=== PATIENT | female | born 1940 | race Caucasian/White ===

== ENCOUNTER → 2016-03-25 | Day surgery (SDC) | payer MEDICARE, BC ==
[~2016-03-25] MED LIST: ALPRAZolam 0.25 MG TAB ONE; BACITRACIN OINT 1 EACH PACKET TOPICAL ONE; LIDOCAINE 1% INJ 10MG/ML (20 ML MDV) ONE; SODIUM BICARB 4% 5 ML VIAL (0.48 MEQ/ML) ONE
--- NOTE | 2016-03-25 08:49 | PCN ---
DATE OF PROCEDURE: The patient is a 75-year-old white female with an abnormal mammogram of the left breast. She presents for left breast stereotactic core biopsy. The area of concern in the left breast was localized. Needle was driven to the correct coordinates. Multiple core biopsies were obtained. The specimen was radiographed and area of concern was sampled. The patient then had a clip left behind. Patient tolerated the procedure in stable condition. The specimen was sent for pathology.
--- NOTE | 2016-03-25 15:21 | MM ---
EXAMINATION TYPE: MG stereo VAD BX LT DATE OF EXAM: 03/25/2016 9:10 AM COMPARISON: Outside mammogram from [facility] 02/12/2016 CLINICAL HISTORY: 75-year-old female abnormal mammogram, referred for biopsy of left breast microcalcifications. TECHNIQUE: Stereotactic guided core biopsy of the left breast. FINDINGS: The procedure of stereotactic guided core biopsy was explained to the patient. Benefits, alternatives, and risks were discussed. An informed consent was then obtained. The shortness pathway for biopsy was chosen. [facility] pathway was an inferior approach. I performed the localization, then surgeon, Dr. Guero Ho performed the remainder of the procedure. An 8 gauge vacuum assisted biopsy gun was used to obtain multiple core samples. The patient tolerated the procedure well without any immediate complication. The patient was kept in the radiology department for short stay after the procedure and then discharged home in stable condition. Targeted calcifications are identified in specimen mammogram. Post biopsy mammogram shows the clip to appear in satisfactory position relative to the targeted area of concern on the preprocedure images. IMPRESSION: SUCCESSFUL, UNCOMPLICATED STEREOTACTIC GUIDED CORE BIOPSY OF 6:00 LEFT BREAST MICROCALCIFICATIONS; FULL PATHOLOGY RESULTS TO FOLLOW. 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 Recommendation Surgical consult of the left breast. TANVI
== END ==
LOC: RADMAMWWP 06:53
PROVIDERS: ATTEND Surgery
DX: C50.912 Malignant neoplasm of unspecified site of left female breast (principal); R92.8 Other abnormal and inconclusive findings on diagnostic imaging of breast
CPT/HCPCS: 88305; 88342; 88341; 19081; A4648; J2001

== ENCOUNTER 2016-04-20 10:22 | Day surgery (SDC) | payer MEDICARE, BC ==
[2016-04-15 11:26] VITALS: BMI 27.4
[~2016-04-20 10:22] MED LIST changes: -ALPRAZolam 0.25 MG TAB ONE; -BACITRACIN OINT 1 EACH PACKET TOPICAL ONE; +DEXAMETHASONE SOD PHOSPHATE 10 MG/ML 1 ML VIAL IV ONE; +HEPARIN SODIUM,PORCINE 5,000 UNIT/ML 1 ML VIAL SQ ONE; +HYDROmorphone 1 MG/ML 1 ML SYRINGE IVP PRN; +LACTATED RINGERS 1,000 ML IV SCH; +LIDOCAINE 1% 20 ML VIAL (10MG/ML) FOR IV START INTRADERMA PRN; -LIDOCAINE 1% INJ 10MG/ML (20 ML MDV) ONE; +MIDAZOLAM 2 MG/2 ML VIAL IV PRN; +ONDANSETRON 4 MG/2 ML VIAL IVP ONE; +SCOPOLAMINE 1.5MG/72HR PATCH TRANSDERM ONE; -SODIUM BICARB 4% 5 ML VIAL (0.48 MEQ/ML) ONE; +ceFAZolin 2 GM in SODIUM CHLORIDE 0.9% 100 ML IVPB ONE
[2016-04-20] MEDS ORDERED: ALPRAZolam 0.25 MG TAB PO ONE (10:41)
[2016-04-20] MEDS ORDERED: LACTATED RINGERS 1,000 ML IV ONE ×5 (10:42→15:38)
[2016-04-20] MEDS ORDERED: LIDOCAINE 1% 20 ML VIAL (10MG/ML) FOR IV START INTRADERMA ONE (10:42)
[2016-04-20] MEDS ORDERED: LIDOCAINE 1% INJ 10MG/ML (20 ML MDV) SQ ONE (11:48)
[2016-04-20] MEDS ORDERED: SODIUM BICARB 4% 5 ML VIAL (0.48 MEQ/ML) MISCELLANE ONE (11:48)
[2016-04-20] MEDS ORDERED: HEPARIN SODIUM,PORCINE 5,000 UNIT/ML 1 ML VIAL SQ ONE (12:45)
[2016-04-20] MEDS ORDERED: METHYLENE BLUE 10 MG/ML 1 ML VIAL MISCELLANE ONE (13:15)
[2016-04-20] MEDS ORDERED: PROPOFOL 10 MG/ML 20 ML VIAL IV ONE (13:32)
[2016-04-20] MEDS ORDERED: fentaNYL (PF) 50 MCG/ML 2 ML AMP ONE (13:32)
[2016-04-20] MEDS ORDERED: HYDROmorphone (PF) 1 MG/ML ONE (13:32)
[2016-04-20] MEDS ORDERED: MIDAZOLAM 2 MG/2 ML VIAL ONE (13:32)
[2016-04-20] MEDS ORDERED: ROCURONIUM BROMIDE 10 MG/ML 10 ML VIAL IV ONE (13:32)
[2016-04-20] MEDS ORDERED: ePHEDrine 50 MG/ML 1 ML AMP ONE (13:32)
[2016-04-20] MEDS ORDERED: LIDOCAINE 1% INJ 10MG/ML (20 ML MDV) ONE (13:32)
--- NOTE | 2016-04-20 14:00 | NM ---
EXAMINATION TYPE: NM sentinel node injection DATE OF EXAM: 04/20/2016 12:24 PM COMPARISON: NONE HISTORY: Left-sided breast cancer TECHNIQUE AND FINDINGS: The procedure of sentinel lymph node injection was explained to the patient. The benefits, alternatives, and risks were discussed. An informed consent was then obtained. Overlying skin is cleaned with sterile alcohol. Lidocaine buffered with bicarbonate was used as anes thetic into the skin and subcutaneous tissue surrounding the nipple. Following this, 504 uCi Tc 99m Filtered Sulfur Colloid was injected into 4 equivalent doses at 12, 3, 6, and 9:00 position surroundi ng the left nipple intradermally. The injection sites were massaged by nuclear physician for 10 minutes after injection. T he patient tolerated the procedure well without any immediate complication. The patient was kept in the radiology department for short stay after the procedure and then taken to surgery for surgical pr ocedure what is presumed intraoperative gamma probe will be used for sentinel lymph node detection. IMPRESSION: Left breast radiotracer injection for sentinel node localization as above.
[2016-04-20] MEDS ORDERED: METHYLENE BLUE 10 MG/ML 1 ML VIAL INJ ONE (14:05)
--- NOTE | 2016-04-20 14:36 | MM ---
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 TECHNIQUE: Needle localization with wire placement and surgical excision of area of concern in the left breast. FINDINGS: The procedure of needle localization with wire placement and than surgical excision was explained to the patient. Benefits, alternatives, and risks were discussed. An informed consent was then obtained. The shortest pathway for procedure was chosen. Shortest pathway was inferior approach. The overlying skin was prepped and draped in usual sterile fashion. Lidocaine buffered with bicarbonate was used as anesthetic into the skin and subcutaneous tissue up to the level of area of concern. A 5 cm needle was used. It was placed via a inferior approach under mammographic guidance. Subsequent 90 degrees mammogram show the needle to be in satisfactory position relative to the targeted area. At this point, wire was placed and the needle was withdrawn. The wire was fixed to patient's skin. Images were marked for surgeon. The patient tolerated the procedure well without any immediate complication. The patient was kept in the radiology department for short stay after the procedure and then taken to surgery for surgical excision. Targeted biopsy clip and wire are identified in specimen mammogram. The patient was kept in hospital for short stay after the procedure and then discharged home in stable condition. IMPRESSION: Successful, uncomplicated needle localization with wire placement and surgical excision of targeted biopsy clip in the left breast, full pathology results to follow. Pathology Results: Malignant A. PALPABLE LYMPH NODE IN AXILLA: LYMPH NODE WITH EXTENSIVE FAT REPLACEMENT, NEGATIVE FOR METASTATIC MALIGNANCY. CK7 AND TAMI IMMUNOPEROXIDASE STAINS ARE CONFIRMATORY (CONTROLS APPROPRIATE). B. SENTINEL LYMPH ODE #1, BIOPSY: LYMPH NODE WITH PARTIAL FAT REPLACEMENT, NEGATIVE FOR METASTATIC MALIGNANCY. CK7 AND TAMI IMMUNOPEROXIDASE STAINS ARE CONFIRMATORY (CONTROLS APPROPRIATE). C. SENTINEL LYMPH NODE #2, BIOPSY: LYMPH NODE WITH EXTENSIVE FAT REPLACEMENT, NEGATIVE FOR METASTATIC MALIGNANCY. CK7 AND TAMI IMMUNOPEROXIDASE STAINS ARE CONFIRMATORY (CONTROLS APPROPRIATE). D. BREAST, LEFT, LUMPECTOMY: MULTIFOCAL INVASIVE DUCTAL CARCINOMA WITH LOBULAR TYPE GROWTH PATTERN AND DUCTAL CARCINOMA IN SITU (DCIS), MARGINS NEGATIVE FOR MALIGNANCY. SEE SURGICAL PATHOLOGY CANCER CASE SUMMARY. E. BREAST, LEFT, NEW POSTERIOR MARGIN, EXCISION: BENIGN BREAST WITH FIBROCYSTIC CHANGES. F. BREAST, LEFT, NEW ANTERIOR MARGIN, EXCISION: BENIGN SKIN AND SUBCUTANEOUS TISSUE. G. LEFT AXILLARY CONTENTS: THREE LYMPH NODES WITH PARTIAL FAT REPLACEMENT, NEGATIVE FOR METASTATIC MALIGNANCY. CK7 AND TAMI IMMUNOPEROXIDASE STAINS ARE CONFIRMATORY (CONTROLS APPROPRIATE). Recommendation Surgical consult of the left breast. MTDD
--- NOTE | 2016-04-20 15:38 | P.OP ---
Date of Procedure: 04/20/16 Preoperative Diagnosis: Left breast cancer Postoperative Diagnosis: Left breast cancer Procedure(s) Performed: Lymphatic mapping with methylene blue, lumpectomy, sentinal node biopsy Anesthesia: CLARENCEA Surgeon: Breonna Villavicencio Estimated Blood Loss (ml): 10 IV fluids (ml): 1,400 Pathology: other (Lumpectomy, sentinel node biopsy) Condition: stable Disposition: PACU Indications for Procedure: Left breast cancer Operative Findings: Left breast dense tissue, palpable adenopathy left axilla with 2 sentinel nodes Description of Procedure: Patient was taken to the operating room and following induction of general anesthesia the left breast was prepped using alcohol swab. Approximately 4 mL of quarter strength methylene blue was injected. The breast was then massaged. The left breast and axilla were then prepped and draped in a sterile fashion. An incision was made to the hook of the needle localization needle in the left breast. This was carried down to the area of question. Wide excision lumpectomy was performed. Palpable firmness was noted and there was fatty tissue in all planes over this area palpable firmness. The dissection was actually carried to the pectoralis muscle posteriorly, and the skin was excised anteriorly, the specimen was painted for orientation. The specimen was sent to radiology for confirmation that the area of concern had been removed, this was obtained. After we were assured that hemostasis was obtained oncoplastic tissue rearrangement was performed to allow closure of the tissue over the Biozorb implantable device. The tissues were closed using 3-0 Vicryl around the BioSorb. The skin was then closed using 4-0 Monocryl. The area of the axilla was approached. All gloves and instruments and gowns were changed. The neoprobe was used to try to identify the area of greatest concern in the axilla. This did not reveal any radioactivity externally and an axillary skin incision was made. This was carried down into the area of the axilla where two radioactive blue lymph nodes were identified as well as the palpable lymph node. The radioactive lymph nodes were removed and the 10 second count on one was approximately 154 and the second was 290. The background axillary radioactive count at 10 seconds after removal of the nodes was 5. The lymph nodes were sent for frozen section evaluation and were negative for cancer. After we were assured that hemostasis was attained a Justin-Jaimes drain was placed. The deep tissues were closed using 3-0 Vicryl. The skin was closed using 4-0 Monocryl. All instrument and sponge counts were correct at the end of the case. The patient tolerated procedure in stable condition.
--- NOTE | 2016-04-20 15:40 | P.DS ---
Providers Attending physician: Breonna Villavicencio Primary care physician: Jerome Berrios Plan - Discharge Summary New Discharge Prescriptions: HYDROcodone/APAP 5-325MG [[place] 5] 1 - 2 each PO Q4H PRN #20 tab PRN Reason: Pain Discharge Medication List Aspirin [Adult Low Dose Aspirin EC] 81 mg PO DAILY 04/15/16 [History] Cholecalciferol [Vitamin D3] 2,000 unit PO DAILY 04/15/16 [History] Multivitamins, Thera [Multivitamin] 1 tab PO DAILY 04/15/16 [History] Omeprazole 20 mg PO HS 04/15/16 [History] PARoxetine [Paxil] 10 mg PO DAILY 04/15/16 [History] HYDROcodone/APAP 5-325MG [[place] 5] 1 - 2 each PO Q4H PRN #20 tab 04/20/16 [Rx] Follow up Appointment(s)/Referral(s): Breonna Villavicencio MD [STAFF PHYSICIAN] - 1 Week Activity/Diet/Wound Care/Special Instructions: wear bra at all times Do not drive until seen by Dr. Jack Teach drain care Discharge Disposition: HOME SELF-CARE
[2016-04-20 15:52] VITALS: TEMP 07
[2016-04-20 16:42] VITALS: RESP 18
[2016-04-20 18:09] VITALS: BP 147/93; PULSE 81
--- NOTE | 2016-04-23 19:47 | PCN ---
DATE OF PROCEDURE: 04/20/2016 ADDENDUM: Clarification: PROCEDURE: This was a lumpectomy with an onchoplasty tissue transfer and bioabsorb of implantable device placement. It should be known that the cavity itself was approximately 5 cm x 8 cm in size. The tissue transfer was sufficient to fill this cavity. The square centimeters were approximately 40 sq cm.
== END 2016-04-20 18:45 | disposition home or self-care (01) ==
LOC: OR 10:22
PROVIDERS: ATTEND Surgery
DX: C50.912 Malignant neoplasm of unspecified site of left female breast (principal); N60.12 Diffuse cystic mastopathy of left breast; R59.0 Localized enlarged lymph nodes; K21.9 Gastro-esophageal reflux disease without esophagitis; F32.9 Major depressive disorder, single episode, unspecified; F41.0 Panic disorder [episodic paroxysmal anxiety]; Z80.3 Family history of malignant neoplasm of breast; Z80.0 Family history of malignant neoplasm of digestive organs; Z79.82 Long term (current) use of aspirin; Z79.899 Other long term (current) drug therapy; F17.200 Nicotine dependence, unspecified, uncomplicated
CPT/HCPCS: 19125; 38525; 88305; 88342; 88331; 88307; 88341; 76098; 19281; 38792; C1713; A9541; J2250; J1644; J1100; J0690; J2405; J2001; Q9968; J3010; J1170; J2704; 88332

== ENCOUNTER → 2016-07-30 | Outpatient (CLI) | payer MEDICARE, BC ==
--- NOTE | 2016-07-30 13:31 | MM ---
Reason for exam: clinical finding. History: Patient has history of breast cancer at age 75. Family history of breast cancer in sister at age 80. Malignant MG pre op needle loc LT of the left breast, April 20, 2016. Malignant MG stereo VAD BX LT of the left breast, March 25, 2016. Physical Findings: Nurse Summary: 1cm nodule in the left breast at 2 o'clock (nurse kp). MG 3D Diag Mammo W/Cad LT CC and MLO view(s) were taken of the left breast. There is no discrete abnormality at BB. Post surgical changes in the left breast. Ultrasound of left palpable recommended. No significant new findings when compared with previous films. These results were verbally communicated with the patient and result sheet given to the patient on 07/30/16. ASSESSMENT: Benign, BI-RAD 2 RECOMMENDATION: Follow-up diagnostic mammogram of both breasts in 6 months.
--- NOTE | 2016-07-30 13:33 | USB ---
Reason for exam: clinical finding. History: Patient has history of breast cancer at age 75. Family history of breast cancer in sister at age 80. Malignant MG pre op needle loc LT of the left breast, April 20, 2016. Malignant MG stereo VAD BX LT of the left breast, March 25, 2016. US Breast Limited LT Left breast ultrasound demonstrates a 0.9 x 0.6 x 0.5cm oval node at 2 o'clock, correlates at palpable abnormality. These results were verbally communicated with the patient and result sheet given to the patient on 07/30/16. ASSESSMENT: Probably benign, BI-RAD 3 RECOMMENDATION: Follow-up diagnostic mammogram of both breasts in 6 months.
== END | disposition home or self-care (01) ==
LOC: RADMAMWWP 11:47
PROVIDERS: ATTEND Surgery
DX: Z85.3 Personal history of malignant neoplasm of breast (principal); R92.8 Other abnormal and inconclusive findings on diagnostic imaging of breast
CPT/HCPCS: 76642; G0206; G0279

== ENCOUNTER → 2016-10-18 | Outpatient (CLI) | payer MEDICARE, BC ==
--- NOTE | 2016-10-18 12:26 | BD ---
EXAMINATION TYPE: MG DEXA axial skeleton. DATE OF EXAM: 10/18/2016 COMPARISON: NONE CLINICAL HISTORY: Height: 63 IN Weight: 161 LBS FRAX RISK QUESTIONS: Alcohol (3 or more units per day): NO Family History (Parent hip fracture): NO Glucocorticoids (More than 3mos): NO (Ex: prednisone, prednisolone, methylprednisolone, dexamethasone, and hydrocortisone). History of Fracture in Adulthood: YES LEFT ANKLE AGE 55 Secondary Osteoporosis: 1. Type 1 Diabetes: NO 2. Hyperthyroidism: NO 3. Menopause before 45: NO 4. Malnutrition: NO 5. Chronic liver disease: NO Rheumatoid Arthritis: NO Current Tobacco Use: YES RISK FACTORS HISTORY OF: Active: YES Postmenopausal woman: AGE 53 Take estrogen and/or progesterone medications: NOT NOW How long: PT TOOK HORMONES FROM AGE 14- 15 HER FEMALE ORGANS WERE UNDERDEVELOPED MEDICATIONS: Additional Medications: VIT D, ASPIRIN 81, CENTRUM SILVER, FEMARA,OMEPRAZOLE, PAROXEINE, VIT D3 Additional History: BREAST CANCER WITH RADIATION EXAM MEASUREMENTS: Bone mineral densitometry was performed using the [employer] System. Bone mineral density as measured about the Lumbar spine is: ----- L1-L4(G/cm2): 0.931 T Score Values are as follows: ----- L2: -1.9 ----- L3: -1.9 ----- L4: -2.7 ----- L1-L4: -2.1 Bone mineral density BASELINE Bone mineral density about the R hip (g/cm2): 0.762 Bone mineral density about the L hip (g/cm2): 0.654 T Score values are as follows: -----R Neck: -2.0 -----L Neck: -2.8 -----R Total: -1.0 -----L Total: -1.5 Bone mineral densityBASELINE IMPRESSION: Findings compatible with severe osteopenia with localized osteoporosis involving the left femoral nec k and L4 vertebral body. NOTE: T-SCORE=SD OF THE YOUNG ADULT MEAN.
== END | disposition home or self-care (01) ==
LOC: RADBDWWP 10:08
PROVIDERS: ATTEND Internal Medicine Hematology & Oncology
DX: C50.112 Malignant neoplasm of central portion of left female breast (principal); N95.1 Menopausal and female climacteric states; Z79.890 Hormone replacement therapy
CPT/HCPCS: 77080

== ENCOUNTER → 2017-02-01 | Outpatient (CLI) | payer MEDICARE, BC ==
--- NOTE | 2017-02-02 07:09 | MM ---
Reason for exam: follow-up at short interval from prior study. Last mammogram was performed 6 months ago. History: Patient is postmenopausal and has history of breast cancer at age 75. Malignant MG pre op needle loc LT of the left breast, April 20, 2016. Malignant MG stereo VAD BX LT of the left breast, March 25, 2016. Took antineoplastic beginning at age 75. Physical Findings: Nurse did not find any significant physical abnormalities on exam. MG 3D Diag Mammo W/Cad MARY XCCL view(s) were taken of the left breast. Prior study comparison: July 30, 2016, left breast MG 3d diag mammo w/cad LT. July 30, 2016, left breast US breast limited LT. The breast tissue is heterogeneously dense. This may lower the sensitivity of mammography. Post therapy changes on the left breast. No significant new findings when compared with previous films. These results were verbally communicated with the patient and result sheet given to the patient on 02/01/17. ASSESSMENT: Benign, BI-RAD 2 RECOMMENDATION: Follow-up diagnostic mammogram of both breasts in 1 year.
== END | disposition home or self-care (01) ==
LOC: RADMAMWWP 10:45
PROVIDERS: ATTEND Surgery
DX: R92.8 Other abnormal and inconclusive findings on diagnostic imaging of breast (principal)
CPT/HCPCS: G0204; G0279

== ENCOUNTER → 2017-10-19 | Outpatient (CLI) | payer MEDICARE, BC ==
--- NOTE | 2017-10-19 17:36 | BD ---
EXAMINATION TYPE: Axial Bone Density DATE OF EXAM: 10/19/2017 COMPARISON: 2017 CLINICAL HISTORY: 77-year-old female postmenopausal screening, history of breast cancer 2018 Height: 5'3 Weight: 160 FRAX RISK QUESTIONS: History of Fracture in Adulthood: Y Secondary Osteoporosis: Current Tobacco Use: y RISK FACTORS HISTORY OF: Postmenopausal woman: MEDICATIONS: Additional Medications: anxiety, acid reflux , cholesterol Additional History: 2018 breast cancer EXAM MEASUREMENTS: Bone mineral densitometry was performed using the [employer] System. Bone mineral density as measured about the Lumbar spine is: ----- L1-L4(G/cm2): 0.915 T Score Values are as follows: ----- L2: -2.0 ----- L3: -2.1 ----- L4: -2.6 ----- L1-L4: -2.3 Bone mineral density has: Decreased -1.2% since study of: 10/18/2016 Bone mineral density about the R hip (g/cm2): 0.725 Bone mineral density about the L hip (g/cm2): 0.624 T Score values are as follows: -----R Neck: -2.3 -----L Neck: -3.0 -----R Total: -1.1 -----L Total: -1.7 Bone mineral density has: Decreased -2.3% since study of: 10/18/2016 IMPRESSION: Osteoporosis (T Score less than -2.5). There is increased fracture risk and therapy is usually indicated based on age. Re-Screen 1-2 years. NOTE: T-SCORE=SD OF THE YOUNG ADULT MEAN.
== END | disposition home or self-care (01) ==
LOC: RADBDWWP 13:11
PROVIDERS: ATTEND Internal Medicine Hematology & Oncology
DX: C50.812 Malignant neoplasm of overlapping sites of left female breast (principal); M81.0 Age-related osteoporosis without current pathological fracture
CPT/HCPCS: 77080

== ENCOUNTER → 2017-11-23 | Outpatient (CLI) | payer MEDICARE ==
--- NOTE | 2017-11-23 14:04 | MR ---
EXAMINATION TYPE: MR iac wo/w con DATE OF EXAM: 11/23/2017 COMPARISON: None HISTORY: Hearing loss TECHNIQUE: Multiplanar, multisequence images of the brain and brainstem, small disla-[id number] high-resolution giorgi ges through the internal auditory canals is performed without and with IV contrast, utilizing 8 mL in travenous Gadavist . FINDINGS: Diffusion weighted images demonstrate no evidence of a recent infarct or other diffusion ab normality. There is no extra-axial fluid collection. Increased signal noted within the eugenie as well as periventricular white matter and confluent and scattered foci on inversion recovery and T2-weighte d sequences. The ventricular system and cisternal spaces are normal in size and appearance. The brai n volume is age appropriate, there is likely age-related atrophy. Midline structures demonstrate normal morphology, partially empty sella noted. The craniocervical ju nction appears within normal limits. Post contrast images demonstrate no abnormal enhancement. The d ural venous sinuses appear patent. The visualized sinuses are remarkable for minimal inflammatory francisco nge left maxillary sinus and the globes are intact. Basilar tip appears somewhat prominently however this may be normal variant. Cerebellopontine angles and specific are normal. Semicircular canals show symmetric appearance. No internal auditory canal mass. IMPRESSION: Age-related atrophy and probable chronic small vessel ischemia. Prominence of the basilar tip may be normal variant, follow-up MRA could be performed to assess for stability. No internal aud itory canal mass.
== END | disposition home or self-care (01) ==
LOC: RADMRIMAIN 10:46
PROVIDERS: ATTEND Otolaryngology
DX: G31.1 Senile degeneration of brain, not elsewhere classified (principal)
CPT/HCPCS: 82565; 70553; 36415; A9581

== ENCOUNTER → 2018-02-03 | Outpatient (CLI) | payer MEDICARE, BC ==
--- NOTE | 2018-02-06 09:12 | MM ---
Reason for exam: additional evaluation requested from prior study. Last mammogram was performed 1 year ago. History: Patient is postmenopausal and has history of breast cancer at age 75. Family history of breast cancer in sister at age 80. Malignant MG pre op needle loc LT of the left breast, April 20, 2016. Malignant MG stereo VAD BX LT of the left breast, March 25, 2016. Lumpectomy of the left breast, 2017. Radiation therapy of the left breast, 2017. Took antineoplastic for 1 year beginning at age 75. Physical Findings: Nurse did not find any significant physical abnormalities on exam. MG 3D Diag Mammo W/Cad MARY Bilateral CC and MLO view(s) were taken. Prior study comparison: February 01, 2017, bilateral MG 3d diag mammo w/cad MARY. July 30, 2016, left breast MG 3d diag mammo w/cad LT. The breast tissue is heterogeneously dense. This may lower the sensitivity of mammography. Asymmetric breast tissue greater in the left breast. Post surgical changes left breast. No significant new findings when compared with previous films. These results were verbally communicated with the patient and result sheet given to the patient on 02/03/18. ASSESSMENT: Benign, BI-RAD 2 RECOMMENDATION: Follow-up diagnostic mammogram of both breasts in 1 year.
== END | disposition home or self-care (01) ==
LOC: RADMAMWWP 09:39
PROVIDERS: ATTEND Internal Medicine Hematology & Oncology
DX: Z08 Encounter for follow-up examination after completed treatment for malignant neoplasm (principal); Z85.3 Personal history of malignant neoplasm of breast
CPT/HCPCS: 77066; G0279; 77062

== ENCOUNTER 2024-03-18 20:01 | Inpatient (IN) | payer MEDICARE ==
--- NOTE | 2024-03-18 20:11 | ED ---
Recheck HPI - General Chief Complaint: Back Pain/Injury Stated Complaint: Back pain Time Seen by Provider: 03/18/24 20:10 Source: EMS, RN notes reviewed, old records reviewed Mode of arrival: EMS Limitations: no limitations - History of Present Illness Initial Comments: This is a 83-year-old female excepted in transfer for compression fractures of the lumbar spine she follows with Dr. Howard orthopedics here at this hospital. Patient will be admitted for pain control and pain management MD Complaint: medication refill request Returns Today for: persistent/worsening pain related to initial visit Treatments Prior to Arrival: Given Pain Meds on - Related Data Home Medications Medication Instructions Recorded Confirmed Omeprazole 40 mg PO DAILY 04/15/16 03/19/24 HYDROcodone/APAP 5-325MG [[place] 1 tab PO Q6HR PRN 03/19/24 03/19/24 5-325] Losartan [Cozaar] 50 mg PO DAILY 03/19/24 03/19/24 PARoxetine [Paxil] 20 mg PO DAILY 03/19/24 03/19/24 Pregabalin [Lyrica] 100 mg PO TID 03/19/24 03/19/24 methocarbamoL [Robaxin-750] 750 mg PO TID PRN 03/19/24 03/19/24 Allergies Allergy/AdvReac Type Severity Reaction Status Date / Time No Known Allergies Allergy Verified 03/19/24 10:29 Review of Systems ROS Statement: Those systems with pertinent positive or pertinent negative responses have been documented in the HPI. ROS Other: All systems not noted in ROS Statement are negative. Past Medical History Past Medical History: Cancer, GERD/Reflux Additional Past Medical History / Comment(s): diverticulitis, left breast cancer History of Any Multi-Drug Resistant Organisms: None Reported Past Surgical History: Appendectomy, Breast Surgery, Orthopedic Surgery, Tonsillectomy Additional Past Surgical History / Comment(s): left breast biopsy, left shoulder rotator cuff Past Anesthesia/Blood Transfusion Reactions: No Reported Reaction Past Psychological History: Anxiety Past Alcohol Use History: Occasional Past Drug Use History: None Reported - Past Family History Sister(s) Family Medical History: Cancer Brother(s) Family Medical History: Cancer General Exam Limitations: no limitations General appearance: alert, in no apparent distress Head exam: Present: atraumatic, normocephalic, normal inspection Eye exam: Present: normal appearance, PERRL, EOMI. Absent: scleral icterus, conjunctival injection, periorbital swelling ENT exam: Present: normal exam, mucous membranes moist Neck exam: Present: normal inspection. Absent: tenderness, meningismus, lymphadenopathy Respiratory exam: Present: normal lung sounds bilaterally. Absent: respiratory distress, wheezes, rales, rhonchi, stridor Cardiovascular Exam: Present: regular rate, normal rhythm, normal heart sounds. Absent: systolic murmur, diastolic murmur, rubs, gallop, clicks GI/Abdominal exam: Present: soft, normal bowel sounds. Absent: distended, tenderness, guarding, rebound, rigid Extremities exam: Present: normal inspection, full ROM, normal capillary refill. Absent: tenderness, pedal edema, joint swelling, calf tenderness Back exam: Present: normal inspection Neurological exam: Present: alert, oriented X3, CN II-XII intact Psychiatric exam: Present: normal affect, normal mood Skin exam: Present: warm, dry, intact, normal color. Absent: rash Course Vital Signs 03/18/24 03/18/24 03/19/24 20:04 21:08 00:00 Temperature 98.1 F 97.6 F Pulse Rate 79 81 78 Respiratory 16 16 Rate Blood Pressure 194/94 175/91 O2 Sat by Pulse 92 L 96 93 L Oximetry 03/19/24 03/19/24 03/19/24 03:59 04:00 04:18 Temperature 97.6 F Pulse Rate 80 79 75 Respiratory 22 22 22 Rate Blood Pressure 156/92 187/106 182/101 O2 Sat by Pulse 99 98 98 Oximetry 03/19/24 03/19/24 03/19/24 04:30 05:04 05:21 Temperature Pulse Rate 75 74 83 Respiratory 22 20 18 Rate Blood Pressure 187/100 177/113 186/81 O2 Sat by Pulse 98 97 97 Oximetry 03/19/24 03/19/24 03/19/24 05:41 09:13 13:31 Temperature Pulse Rate 80 85 84 Respiratory 16 18 16 Rate Blood Pressure 157/89 169/99 158/91 O2 Sat by Pulse 97 96 92 L Oximetry 03/19/24 18:11 Temperature 97.4 F L Pulse Rate 85 Respiratory 18 Rate Blood Pressure 159/89 O2 Sat by Pulse 94 L Oximetry - Reevaluation(s) Reevaluation #1: 03/18/24 20:15 Medical records reviewed Reevaluation #2: 03/18/24 20:15 Patient pain is improved here in the ER Reevaluation #3: 03/18/24 20:15 Patient informed of results questions answered Reevaluation #4: Was pt. sent in by a medical professional or institution (MELY Gurrola, BENCH REPAIR TECHNICIAN, urgent care, hospital, or half-way...) When possible be specific @ -no Did you speak to anyone other than the patient for history (EMS, parent, family, police, friend...)? What history was obtained from this source @ -no Did you review nursing and triage notes (agree or disagree)? Why? @ -agree Are old charts reviewed (outside hosp., previous admission, EMS record, old EKG, old radiological studies, urgent care reports/EKG's, half-way records)? Report findings @ -yes Differential Diagnosis (chest pain, altered mental status, abdominal pain women, abdominal pain men, vaginal bleeding, weakness, fever, dyspnea, syncope, headache, dizziness, GI bleed, back pain, seizure, CVA, palpatations, mental health, musculoskeletal)? @ -prior EKG interpreted by me (3pts min.). @ -no X-rays interpreted by me (1pt min.). @ -no CT interpreted by me (1pt min.). @ -no U/S interpreted by me (1pt. min.). @ -no What testing was considered but not performed or refused? (CT, X-rays, U/S, labs)? Why? @ -none What meds were considered but not given or refused? Why? @ -none Did you discuss the management of the patient with other professionals (professionals i.e. MELY Gurrola, BENCH REPAIR TECHNICIAN, lab, RT, psych nurse, director social welfare, moving picture producer, teacher, chief sales officer, watch case polisher)? Give summary @ -no Was smoking cessation discussed for >3mins.? @ -no Was critical care preformed (if so, how long)? @ -no Were there social determinants of health that impacted care today? How? (Homelessness, low income, unemployed, alcoholism, drug addiction, transportation, low edu. Level, literacy, decrease access to med. care, halfway, rehab)? @ -none Was there de-escalation of care discussed even if they declined (Discuss DNR or withdrawal of care, Hospice)? DNR status @ -no What co-morbidities impacted this encounter? (DM, HTN, Smoking, COPD, CAD, Cancer, CVA, ARF, Chemo, Hep., AIDS, mental health diagnosis, sleep apnea, morbid obesity)? @ -none Was patient admitted / discharged? Hospital course, mention meds given and route, prescriptions, significant lab abnormalities, going to OR and other pertinent info. @ - 83 female to ER for fall fall with positive back fracture. Patient be admitted for pain control secondary to fracture Admitted Undiagnosed new problem with uncertain prognosis? @ -no Drug Therapy requiring intensive monitoring for toxicity (Heparin, Nitro, Insulin, Cardizem)? @ -no Were any procedures done? @ -no Diagnosis/symptom? @ -Pain control for back fracture fall Acute, or Chronic, or Acute on Chronic? @ -Acute Uncomplicated (without systemic symptoms) or Complicated (systemic symptoms)? @ -Complicated Side effects of treatment? @ -no Exacerbation, Progression, or Severe Exacerbation? @ -exacerbation Poses a threat to life or bodily function? How? (Chest pain, [place], VA, pneumonia, PE, COPD, DKA, ARF, appy, cholecystitis, CVA, Diverticulitis, Homicidal, Suicidal, threat to staff... and all critical care pts) @ -yes extremes of age Reevaluation #5: Differential Back Pain: Strain, zoster, cauda equina syndrome, epidural abscess, vertebral osteomyelitis, discitis, fracture, subluxation, disc herniation, DJD, spinal stenosis, dissection, AAA, pancreatitis, peptic ulcer disease, pyelonephritis, kidney stone, this is not meant to be an all-inclusive list. - Consultations Consultation #1: Spoke with анна who agrees to admit this patient Medical Decision Making - Medical Decision Making 83 female to ER for fall fall with positive back fracture. Patient be admitted for pain control secondary to fracture - Lab Data Result diagrams: 03/22/24 05:37 03/22/24 05:37 Lab Results 03/19/24 03/19/24 03/19/24 Range/Units 06:43 09:38 09:38 WBC 7.00 (4.50-10.00) X 10*3/uL RBC 3.66 L (4.10-5.20) X 10*6/uL Hgb 11.8 L (12.0-15.0) g/dL Hct 36.5 L (37.2-46.3) % MCV 99.7 H (80.0-97.0) FL MCH 32.2 H (27.0-32.0) pg MCHC 32.3 (32.0-37.0) g/dL RDW 13.2 (11.5-14.5) % Plt Count 350 (140-440) X 10*3/uL MPV 8.9 L (9.5-12.2) FL Immature Gran % (Auto) 0.30 % Absolute Nucleated RBC 0 % Neutrophils % 64.5 % Lymphocytes % 23.0 % Monocytes % 11.1 % Eosinophils % 0.7 % Basophils % 0.4 % Immature Gran # 0.02 (0.00-0.04) X 10*3/uL Neutrophils # 4.51 (1.80-7.70) X 10*3/uL Lymphocytes # 1.61 (0.90-5.00) X 10*3/uL Monocytes # 0.78 (0.20-1.00) X 10*3/uL Eosinophils # 0.05 (0.04-0.35) X 10*3/uL Basophils # 0.03 (0.00-0.10) X 10*3/uL NRBC/100 WBC Diff 0 (0.00-0.01) X 10*3/uL PT 11.4 (10.0-12.5) sec INR 1.0 (<1.2) APTT 24.0 (22.0-30.0) sec Sodium 129 L (137-145) mmol/L Potassium 4.1 (3.5-5.1) mmol/L Chloride 98 (98-107) mmol/L Carbon Dioxide 21 L (22-30) mmol/L Anion Gap 10 mmol/L BUN 19 H (7-17) mg/dL Creatinine 0.66 (0.52-1.04) mg/dL Est GFR (CKD-EPI) (>=60) Est GFR (CKD-EPI)AfAm >90 (>60 ml/min/1.73 sqM) Est GFR (CKD-EPI)NonAf 81 (>60 ml/min/1.73 sqM) BUN/Creatinine Ratio (12.00-20.00) Ratio Glucose 98 (74-99) mg/dL Calcium 9.5 (8.4-10.2) mg/dL Phosphorus 3.5 (2.5-4.5) mg/dL Magnesium 1.7 (1.6-2.3) mg/dL Total Bilirubin 0.8 (0.2-1.3) mg/dL AST 30 (14-36) U/L ALT 15 (4-34) U/L Alkaline Phosphatase 69 (38-126) U/L Total Protein 7.3 (6.3-8.2) g/dL Albumin 3.9 (3.5-5.0) g/dL Globulin 3.4 g/dL Albumin/Globulin Ratio 1.1 03/19/24 03/20/24 03/20/24 Range/Units 09:38 04:55 04:55 WBC 5.96 (4.50-10.00) X 10*3/uL RBC 3.18 L (4.10-5.20) X 10*6/uL Hgb 10.4 L (12.0-15.0) g/dL Hct 31.7 L (37.2-46.3) % MCV 99.7 H (80.0-97.0) FL MCH 32.7 H (27.0-32.0) pg MCHC 32.8 (32.0-37.0) g/dL RDW 13.1 (11.5-14.5) % Plt Count 286 (140-440) X 10*3/uL MPV 8.9 L (9.5-12.2) FL Immature Gran % (Auto) % Absolute Nucleated RBC 0 % Neutrophils % % Lymphocytes % % Monocytes % % Eosinophils % % Basophils % % Immature Gran # (0.00-0.04) X 10*3/uL Neutrophils # (1.80-7.70) X 10*3/uL Lymphocytes # (0.90-5.00) X 10*3/uL Monocytes # (0.20-1.00) X 10*3/uL Eosinophils # (0.04-0.35) X 10*3/uL Basophils # (0.00-0.10) X 10*3/uL NRBC/100 WBC Diff 0 (0.00-0.01) X 10*3/uL PT (10.0-12.5) sec INR (<1.2) APTT (22.0-30.0) sec Sodium 132 L (137-145) mmol/L Potassium 3.8 (3.5-5.1) mmol/L Chloride 100 (98-107) mmol/L Carbon Dioxide 22.3 (22-30) mmol/L Anion Gap 9.70 mmol/L BUN 13.4 (7-17) mg/dL Creatinine 0.7 (0.52-1.04) mg/dL Est GFR (CKD-EPI) 85 (>=60) Est GFR (CKD-EPI)AfAm (>60 ml/min/1.73 sqM) Est GFR (CKD-EPI)NonAf (>60 ml/min/1.73 sqM) BUN/Creatinine Ratio 19.14 (12.00-20.00) Ratio Glucose 86 (74-99) mg/dL Calcium 9.3 (8.4-10.2) mg/dL Phosphorus (2.5-4.5) mg/dL Magnesium 1.6 1.8 (1.6-2.3) mg/dL Total Bilirubin 0.7 (0.2-1.3) mg/dL AST 25 (14-36) U/L ALT 13 (4-34) U/L Alkaline Phosphatase 73 (38-126) U/L Total Protein 6.9 (6.3-8.2) g/dL Albumin 3.6 L (3.5-5.0) g/dL Globulin 3.3 g/dL Albumin/Globulin Ratio 1.09 L Disposition Clinical Impression: Mechanical back pain, Mid back pain, Vertebral compression fracture, Fall, Thoracic compression fracture, Acute thoracic back pain Disposition: ADMITTED IP TO THIS [facility] Condition: Fair Is patient prescribed a controlled substance at d/c from ED?: No Time of Disposition: 20:20
[2024-03-18] MEDS ORDERED: NALOXONE 0.4 MG/ML 1 ML VIAL IV PRN (20:12)
[2024-03-18] MEDS: SODIUM CHLORIDE 0.9% 1,000 ML IV SCH (20:20)
[2024-03-18] MEDS: KETOROLAC 15 MG/ML 1 ML VIAL IVP STA (20:21)
[2024-03-18] MEDS: HYDROmorphone 1 MG/ML 1 ML SYRINGE IVP STA (20:22)
[2024-03-19] MEDS: MORPHINE SULFATE 4 MG/ML SYRINGE IV PRN (04:40)
[2024-03-19] MEDS: LORazepam 1 MG TAB PO STA (04:43)
[2024-03-19 08:20] LABS: ALT 15 U/L (4-34); AST 30 U/L (14-36); African American GFR (CKD) >90 (>60 ml/min/1.73 sqM); Albumin 3.9 g/dL (3.5-5.0); Albumin/Globulin Ratio 1.1; Alkaline Phosphatase 69 U/L (38-126); Anion Gap 10 mmol/L; Blood Urea Nitrogen 19 mg/dL (7-17); Calcium 9.5 mg/dL (8.4-10.2); Carbon Dioxide 21 mmol/L (22-30); Chloride 98 mmol/L (98-107); Globulin 3.4 g/dL; Glucose 98 mg/dL (74-99); Magnesium 1.7 mg/dL (1.6-2.3); Non-African American GFR(CKD) 81 (>60 ml/min/1.73 sqM); Phosphorus 3.5 mg/dL (2.5-4.5); Potassium 4.1 mmol/L (3.5-5.1); Sodium 129 mmol/L (137-145); Total Bilirubin 0.8 mg/dL (0.2-1.3); Total Protein 7.3 g/dL (6.3-8.2)
[2024-03-19 10:08] LABS: Prothrombin Time 11.4 sec (10.0-12.5)
[2024-03-19] MEDS ORDERED: methocarbamoL 750 MG TAB PO PRN (10:43)
[2024-03-19] MEDS: PARoxetine 10 MG TAB PO SCH (11:00)
--- NOTE | 2024-03-19 11:22 | XR ---
EXAMINATION TYPE: XR lumbar spine 3V DATE OF EXAM: 03/19/2024 11:02 AM COMPARISON: None CLINICAL INDICATION: Female, 83 years old with history of fracture, pain, FINDINGS: Rightward tracheal shift. Diffuse osteopenia. 5 lumbar type vertebral bodies. Vertebral body heights are preserved. Mild inferior endplate deformity of T11 is difficulty evaluate due to the truncal shif t on the lateral view. No abelardo vertebral compression collapse compared to 03/18/2024. Mild multilevel degenerative disc disease. No abelardo malalignment seen. IMPRESSION: Limited assessment due to prominent rightward truncal shift and osteopenia. No abelardo malalignment. No abelardo vertebral compression collapse compared to 03/18/2024. The T11 inferior endplate injury seen on CT is difficult to assess due to the above limitations. [facility], Workstation: [id number], 03/19/2024 11:19 AM
[2024-03-19] MEDS: MULTIVITAMINS, THERA 1 EACH TAB PO SCH (11:27)
[2024-03-19] MEDS: PREGABALIN 100 MG CAP PO SCH (11:27)
[2024-03-19] MEDS: LOSARTAN 50 MG TAB PO SCH (11:27)
[2024-03-19] MEDS: PARoxetine 20 MG TAB PO SCH (11:28)
--- NOTE | 2024-03-19 12:52 | P.CNOR ---
History of Present Illness - [facility] Consult date: 03/19/24 Requesting physician: Art Stokes Consult reason: fracture (T8, T10, and T11 compression fractures) History of present illness: Patient is a very pleasant 83-year-old female well-known to our service who is seen and examined in the emergency department room #18 for further evaluation of her thoracic spine. She has been seen and examined the outpatient setting for known compression fracture deformities of T8 and T11. She previously had MRI imaging on 01/19/2024 showing her acute compression fracture deformities of T8 and T11. She has followed up in the outpatient setting with further x-ray imaging taken on 02/28/2024 further showing her T8 and T11 compression fracture deformities. She had been doing better at her last appointment and utilizing LSO bracing. Since that time her symptoms have been worsening. She is having more difficulty with pain control even with hydrocodone. She presented to [facility] yesterday for further evaluation. CT imaging was taken at that time which does show the compression fracture deformities of T8 and T11. There also appears to be acute compression fracture deformity of T10. She denies any injuries. Prior to presenting to the emergency department, she did see her primary care provider last week as she was having some upper abdominal pain due to brace use. She has continued to utilize her bracing as instructed. She denies any lower extremity weakness or radiculopathy. She has been able to ambulate. She is admitted to medicine. Patient denies any significant medical diagnoses. Past Medical History Past Medical History: Cancer, GERD/Reflux Additional Past Medical History / Comment(s): diverticulitis, left breast cancer History of Any Multi-Drug Resistant Organisms: None Reported Past Surgical History: Appendectomy, Breast Surgery, Orthopedic Surgery, Tonsillectomy Additional Past Surgical History / Comment(s): left breast biopsy, left shoulder rotator cuff Past Anesthesia/Blood Transfusion Reactions: No Reported Reaction Past Psychological History: Anxiety Past Alcohol Use History: Occasional Past Drug Use History: None Reported - Past Family History Sister(s) Family Medical History: Cancer Brother(s) Family Medical History: Cancer Medications and Allergies Home Medications Medication Instructions Recorded Confirmed Type Omeprazole 40 mg PO DAILY 04/15/16 03/19/24 History HYDROcodone/APAP 5-325MG [[place] 1 tab PO Q6HR PRN 03/19/24 03/19/24 History 5-325] Losartan [Cozaar] 50 mg PO DAILY 03/19/24 03/19/24 History PARoxetine [Paxil] 20 mg PO DAILY 03/19/24 03/19/24 History Pregabalin [Lyrica] 100 mg PO TID 03/19/24 03/19/24 History methocarbamoL [Robaxin-750] 750 mg PO TID PRN 03/19/24 03/19/24 History Allergies Allergy/AdvReac Type Severity Reaction Status Date / Time No Known Allergies Allergy Verified 03/19/24 10:29 Physical Examination Physical exam: Patient is arousable and oriented and able to answer questions appropriately but is sleepy Vital signs stable Adequate chest excursion with deep inspiration and expiration Examination of thoracic and lumbar spine reveals skin is intact with no abrasions, lacerations, or bruises; no erythema, purulence or signs of infection Dorsiflexion, plantarflexion, and extensor hallucis longus positive sustained bilaterally Lower extremity strength 5/5 bilaterally No signs or symptoms of DVT; no calf pain No pain with internal and external rotation of the hips bilaterally Neurovascularly intact Results Pertinent studies: CT of the chest, abdomen, and pelvis taken at [facility]: Subacute compression fracture deformities of T8 with approximately 80% height loss and T11 at the inferior endplate; new compression fracture deformity of the inferior endplate of T10 X-rays of the thoracic spine taken on 02/28/2024: Stable compression fracture deformities of T8 with approximately 80% height loss and T11 at the inferior endplate MRI of the thoracic spine taken on 01/19/2024: Acute compression fracture deformities of T8 and T11 - Labs Labs: Abnormal Lab Results - Last 24 Hours (Table) 03/19/24 Range/Units 06:43 Sodium 129 L (137-145) mmol/L Carbon Dioxide 21 L (22-30) mmol/L BUN 19 H (7-17) mg/dL Coagulation 03/19/24 Range/Units 09:38 INR 1.0 (<1.2) Result Diagrams: 03/19/24 06:43 Assessment and Plan Assessment: Assessment: Intractable thoracic back pain Subacute compression fracture deformities of T8 and T11 Acute compression fracture deformity of T10 Difficulty with regular activities of daily living given intractable thoracic back pain (1) Thoracic compression fracture Current Visit: Yes Status: Acute Code(s): S22.000A - WEDGE COMPRESSION FRACTURE OF UNSP THORACIC VERTEBRA, INIT SNOMED Code(s): 074128188 (2) Acute thoracic back pain Current Visit: Yes Status: Acute Code(s): M54.6 - PAIN IN THORACIC SPINE SNOMED Code(s): 220709688 Plan: Plan: 1. Patient is known to have subacute compression fracture deformities of T8 and T11. She has been utilizing bracing with some benefit but has been worsening since 02/28/2024. She presented to [facility] yesterday which CT imaging showed the known subacute compression fracture deformity of T8 and T11 along with acute compression fracture deformity of T10. She was transferred to [facility] for further treatment and evaluation. Given her lack of improvement with time and conservative treatment along with new compression fracture deformity of T10, patient feels she is failing conservative treatment options and would like to discuss proceeding forward surgical intervention as previously discussed. Based on patient's compression fractures of T8, T10, and T11 without significant improvement with time, bracing, medication, we feel the patient is failing conservative treatment and is a candidate for surgical intervention. The proposed surgical intervention is a T8, T10, and T11 kyphoplasty with biopsy. We will currently plan to proceed forward with surgical intervention on 03/21/2024 if cleared by medicine. Patient may eat today and tomorrow and will become n.p.o. status effective at midnight on 03/21/2024. Patient may remain in bed. If she does increase her activities and mobilization she should continue to utilize LSO bracing which she brought to the hospital with her. I discussed these issues with the patient at length and I answered all of their questions to the best of my ability and the patient understands. I discussed the risk of surgical intervention and alternative treatment options. The risk of surgical intervention was explained to the patient in detail including but not limited to risk of bleeding, risk of infection, risk and need for further surgery, risk of decreased loss of motion of function, malunion, nonunion, hardware failure, nerve damage, paralysis, heart attack, , as well as the fact that surgery may not alleviate her symptoms. I answered all the patient's questions the best of my ability. The patient would like to proceed forward with surgical intervention and will sign informed consent. Patient will need clearance by medicine prior to surgical intervention. Time with Patient: Greater than 30 (Including obtaining history, physical examination, reviewing of imaging, and dictation.)
--- NOTE | 2024-03-19 14:11 | P.HPIM ---
History of Present Illness H&P Date: 03/19/24 History of Presenting Illness: Patient is a very pleasant 83-year-old female with a past medical history of hypertension, left breast cancer status post lumpectomy, anxiety, diverticulosis with previous episode of diverticulitis, GERD, and known compression fracture of T8 and T11 with peripheral neuropathies and following outpatient with Dr. Howard. She presented to [facility] for worsening lower back pain. CT was completed confirming compression fracture deformities of T8 and T11 along with new compression fracture deformity reported and T10. She was transferred to our facility for continued medical management with pain control and evaluation by her orthopedic surgeon. Upon arrival to our facility, patient underwent evaluation in the emergency department. Vital signs upon arrival show blood pressure 194/94, heart rate 79, respiratory rate 16, temp 98.1 F, and SpO2 of 92% on room air. Labs completed and reviewed. CBC showing macrocytic anemia with hemoglobin of 11.8 and MCV of 99.7. Coagulation profile normal findings. BMP showing hyponatremia with sodium of 129 and hypocarbia with bicarb of 21 and slightly elevated anion gap of 19 otherwise normal findings. Patient is drowsy at time of examination, but does awaken to verbal and tactile stimuli and answers questions appropriately with the exception of inability to s wright date. Patient denies having any new numbness or focal weakness in her extremities. She denies having saddlebag anesthesia was and she denies having any involuntary loss of bowel or bladder. Review of systems: Pertinent positives and negatives as discussed in HPI, a complete review of systems was performed and all other systems are negative. Physical exam: Vital signs reviewed and stable. Patient drowsy but easily awoken via verbal and tactile stimuli. Upon awakening patient immediately becomes fidgety and agitated and unable to sit still secondary to reports of uncontrolled pain. General: Nontoxic, no distress and appears stated age. Appears in mild distress secondary to reports of pain. Derm: Skin warm and dry, normal coloration for ethnicity. Head: Atraumatic, normocephalic and symmetric. Eyes: EOM's intact, no lid lag, and anicteric sclera Mouth: no lip lesions, mucus membranes moist Cardiovascular: regular rate and rhythm with normal S1S2, no murmur, positive posterior tibial pulses bilaterally, and cap refill < 2 seconds. Lungs: Respirations even, regular, and unlabored on room air. Lungs CTA bilaterally, no rhonchi, no rales, no wheezing, and no accessory muscle usage. Abdominal: soft, nontender to palpation, no guarding, no appreciable organomegaly Ext: No gross muscle atrophy, no edema, no contractures. Movement and sensation intact. Patient very fidgety and unable to get comfortable in bed. Neuro: Speech clear, face symmetrical and CN II-XII grossly intact with no noted focal neuro deficits. Psych: Alert and oriented to person, place and situation confused to time. Assessment and Plan of Care: Intractable lumbar back pain Known T8 and T11 compression fracture with new acute T10 compression fracture -Symptomatic care and pain management. Patient started on scheduled Ofirmev 1000 mg every 6 hours to continue with morphine every 4 hours as needed for uncontrolled breakthrough pain. Patient also to continue with Lyrica 100 mg 3 times daily and Robaxin 750 mg 3 times daily as needed for muscle spasms. -Orthospine surgery team consulted placed order for lumbar x-ray images to be completed. -Maintain fall precautions Hypertension -Continue losartan 50 mg daily. Anxiety -Continue Paxil 20 mg daily. GERD -Continue Protonix 40 mg nightly. Data and imaging reviewed: As stated above in HPI CODE STATUS: Full code DVT prophylaxis: SCDs pending evaluation/recommendations from orthospine surgery team Anticipated discharge date: Pending clinical course Anticipated discharge place: Pending clinical course Patient was seen independently by Nurse Practitioner. This document was prepared using [email or web address] dictation software. Please allow for errors in generator worker while rare they do occur. Osmin Carreon NP rendered care for this patient independently, reviewed the findings and plan as documented in the note above and agree with plan. I did not physically speak with or examine the patient on this date. Past Medical History Past Medical History: Cancer, GERD/Reflux Additional Past Medical History / Comment(s): diverticulitis, left breast cancer History of Any Multi-Drug Resistant Organisms: None Reported Past Surgical History: Appendectomy, Breast Surgery, Orthopedic Surgery, Tonsillectomy Additional Past Surgical History / Comment(s): left breast biopsy, left shoulder rotator cuff Past Anesthesia/Blood Transfusion Reactions: No Reported Reaction Past Psychological History: Anxiety Past Alcohol Use History: Occasional Past Drug Use History: None Reported - Past Family History Sister(s) Family Medical History: Cancer Brother(s) Family Medical History: Cancer Medications and Allergies Home Medications Medication Instructions Recorded Confirmed Type Omeprazole 40 mg PO DAILY 04/15/16 03/19/24 History HYDROcodone/APAP 5-325MG [[place] 1 tab PO Q6HR PRN 03/19/24 03/19/24 History 5-325] Losartan [Cozaar] 50 mg PO DAILY 03/19/24 03/19/24 History PARoxetine [Paxil] 20 mg PO DAILY 03/19/24 03/19/24 History Pregabalin [Lyrica] 100 mg PO TID 03/19/24 03/19/24 History methocarbamoL [Robaxin-750] 750 mg PO TID PRN 03/19/24 03/19/24 History Allergies Allergy/AdvReac Type Severity Reaction Status Date / Time No Known Allergies Allergy Verified 03/19/24 10:29 Physical Exam Vitals: Vital Signs Temp Pulse Resp BP Pulse Ox 03/19/24 05:41 80 16 157/89 97 03/19/24 05:21 83 18 186/81 97 03/19/24 05:04 74 20 177/113 97 03/19/24 04:30 75 22 187/100 98 03/19/24 04:18 75 22 182/101 98 03/19/24 04:00 79 22 187/106 98 03/19/24 03:59 97.6 F 80 22 156/92 99 03/19/24 00:00 97.6 F 78 16 175/91 93 L 03/18/24 21:08 81 96 03/18/24 20:04 98.1 F 79 16 194/94 92 L Intake and Output 03/18/24 03/19/24 03/19/24 22:59 06:59 14:59 Other: Weight 68.039 kg Results CBC & Chem 7: 03/19/24 09:38 03/19/24 06:43 Labs: Abnormal Lab Results - Last 24 Hours (Table) 03/19/24 Range/Units 06:43 Sodium 129 L (137-145) mmol/L Carbon Dioxide 21 L (22-30) mmol/L BUN 19 H (7-17) mg/dL
[2024-03-19] MEDS: ACETAMINOPHEN TAB 325 MG TAB PO PRN (14:46)
[2024-03-19 16:03] LABS: Basophils # (A) 0.03 X 10*3/uL (0.00-0.10); Basophils % (A) 0.4 %; Eosinophils # (A) 0.05 X 10*3/uL (0.04-0.35); Eosinophils % (A) 0.7 %; HCT 36.5 % (37.2-46.3); HGB 11.8 g/dL (12.0-15.0); Lymphocytes # (A) 1.61 X 10*3/uL (0.90-5.00); MCH 32.2 pg (27.0-32.0); MCHC 32.3 g/dL (32.0-37.0); MCV 99.7 FL (80.0-97.0); Mean Platelet Volume 8.9 FL (9.5-12.2); Monocytes # (A) 0.78 X 10*3/uL (0.20-1.00); Monocytes % (A) 11.1 %; NRBC Per 100 WBC 0 X 10*3/uL (0.00-0.01); Neutrophils # (A) 4.51 X 10*3/uL (1.80-7.70); Neutrophils % (A) 64.5 %; Platelet Count 350 X 10*3/uL (140-440); RBC 3.66 X 10*6/uL (4.10-5.20); RDW 13.2 % (11.5-14.5)
--- NOTE | 2024-03-19 16:39 | P.PAINPG ---
Objective - Vital Signs Vital signs: Vital Signs Temp 97.6 F 03/19/24 03:59 Pulse 84 03/19/24 13:31 Resp 16 03/19/24 13:31 BP 158/91 03/19/24 13:31 Pulse Ox 92 L 03/19/24 13:31 FiO2 Intake & Output 03/18/24 03/19/24 03/19/24 18:59 06:59 18:59 Output Total 700 Balance -700 Weight 68.039 kg Output: Urine 700 - Labs CBC & Chem 7: 03/19/24 09:38 03/19/24 06:43 Labs: Abnormal Lab Results - Last 24 Hours (Table) 03/19/24 03/19/24 Range/Units 06:43 09:38 RBC 3.66 L (4.10-5.20) X 10*6/uL Hgb 11.8 L (12.0-15.0) g/dL Hct 36.5 L (37.2-46.3) % MCV 99.7 H (80.0-97.0) FL MCH 32.2 H (27.0-32.0) pg MPV 8.9 L (9.5-12.2) FL Sodium 129 L (137-145) mmol/L Carbon Dioxide 21 L (22-30) mmol/L BUN 19 H (7-17) mg/dL PQRS Measure Charge Sheet Comment: HISTORY OF PRESENT ILLNESS: A 83 yr old inpatient female w daughter at side presents today w severe and chronic mid back pain x 1 yr secondary to thoracic compression fractures for evaluation. Pt states pain level is provoked at 7 /10 in intensity, constant, localized in the thoracic spine, predominantly axial, sharp in character without shooting pain. Pain is provoked by any movement. Pain is alleviated by medications (MS 4mg IVP q4h prn, Lyrica 100mg TID, Tylenol 650mg q6h prn), repositioning and rest . Pt and daughter at side are in favor of a kyphoplasty and state it is scheduled on 03/21/24. PMH: OA, Cancer, GERD, Diverticulitis, Anxiety PSH: L Breast Resection s/p CA, Appendectomy, L RCT Repair, Tonsillectomy SH: No tobacco use, Occ ETOH use, No illicit drug use FH: Sis- CA. Bro- CA All: See list Meds: See list REVIEW OF ORGAN SYSTEMS: CONSTITUTIONAL: No fevers or chills. No recent weight loss. NEUROLOGICAL: + numbness and tingling along the distal extremities. No seizure disorders or headaches. MUSCULOSKELETAL: + pain PSYCHIATRIC: Denies current depression or suicidal thoughts. Physical Examinations : Constitutional : Cooperative , not in acute distress . Neurologic : Cranial nerve II to XII intact. No focal neurological deficits. Psychiatric : alert & oriented x 3. Matching mood & appropriate affect. Judgment & insight intact. Musculoskeletal : Cervical Spine Motor strength in the deltoid and biceps: Normal right side. Normal Left side Motor strength biceps and the wrist extensors: Normal right side . Normal left side Motor strength in the triceps muscle: Normal right side. Normal left side Deep tendon reflexes: Normal at the biceps. Normal at Brachioradialis. Normal at triceps Vertebral body tenderness to deep palpation over Cervical facet loading test: positive bilaterally Spurling test: positive bilaterally Neck distraction test: positive bilaterally Iqra sign: positive bilaterally Thoracic spine Vertebral body TTP over T7-T11 Lumbar spine Motor strength lower extremities ,thigh and legs 5/5 Right side , 5/5 Left side Deep tendon reflexes : Normal Knee Jerk. Normal Ankle Jerk Vertebral body tenderness over Bone Test positive Lumbar facet Loading Test: positive Right / positive Left Range of motion of the lumbar spine Flexion 30 degrees, extension 10 degrees Straight Leg Raise test: Left/ Right positive at degrees Emmie test: positive right / positive left. Severe tenderness over the Sacroiliac joint on the Right / Left sides Gaenslen test: positive bilaterally Seated flexion test: positive bilaterally. Sacral spine : Severe tenderness over the Sacroiliac joint: right side / left side Range of motion: Flexion of the lumbar spine <60 degrees Range of motion: Extension of the lumbar spine <20 degrees Gaenslen's Test positive Emmie test: positive right side / left side Thigh Thrust Test Sacral Thrust Test Imaging: MRI non contrast thoracic spine from 01/19/24 reviewed Assessment/ Plan : T8, T10, T11 Compression fractures Recommendation of follow up w Orthopedic Surgery. May follow up in Pain Clinic on an outpatient basis also. No new changes at this time. All questions answered. I have spent greater than 30 minutes on patient care today. Dr Castellanos was available by phone for the evaluation of this patient. The time was used to review the medical records including relevant urine studies and Prescription history (MAPs), review of the available imaging, evaluation and examination of the patient, coordination of care with the medical staff and if applicable referring physicians, as well as creation of the medical record PQRS Narrative: Smoking Status Current every day smoker Blood Pressure 158/91 Pain Intensity 3 Pain Scale Used Worley-Celaya (Faces) Scale Used Numeric (1 - 10) Home Medications: Ambulatory Orders Omeprazole 40 mg PO DAILY 04/15/16 HYDROcodone/APAP 5-325MG [[place] 5-325] 1 tab PO Q6HR PRN 03/19/24 Losartan [Cozaar] 50 mg PO DAILY 03/19/24 PARoxetine [Paxil] 20 mg PO DAILY 03/19/24 Pregabalin [Lyrica] 100 mg PO TID 03/19/24 methocarbamoL [Robaxin-750] 750 mg PO TID PRN 03/19/24 Controlled Substance Measures - Controlled Substance Measures Is patient prescribed a controlled substance at discharge?: No
[2024-03-19] MEDS: PANTOPRAZOLE 40 MG TABLET PO SCH (21:11)
[2024-03-19] MEDS: ACETAMINOPHEN IV (For NPO) 1,000 MG in EMPTY BAG 1 BAG IVPB SCH (22:24)
[2024-03-20 08:29] LABS: HCT 31.7 % (37.2-46.3); HGB 10.4 g/dL (12.0-15.0); MCH 32.7 pg (27.0-32.0); MCHC 32.8 g/dL (32.0-37.0); MCV 99.7 FL (80.0-97.0); Mean Platelet Volume 8.9 FL (9.5-12.2); NRBC Per 100 WBC 0 X 10*3/uL (0.00-0.01); Platelet Count 286 X 10*3/uL (140-440); RBC 3.18 X 10*6/uL (4.10-5.20); RDW 13.1 % (11.5-14.5); WBC 5.96 X 10*3/uL (4.50-10.00)
[2024-03-20 08:43] LABS: BUN/Creat Ratio 19.14 Ratio (12.00-20.00); Blood Urea Nitrogen 13.4 mg/dL (9.0-27.0); Chloride 100 mmol/L (96-109); Glucose 86 mg/dL (70-110); Magnesium 1.8 mg/dL (1.5-2.4); Potassium 3.8 mmol/L (3.5-5.5); Sodium 132 mmol/L (135-145)
[2024-03-20 08:44] LABS: ALT 13 U/L (8-44); AST 25 U/L (13-35); Albumin 3.6 g/dL (3.8-4.9); Albumin/Globulin Ratio 1.09 Ratio (1.60-3.17); Alkaline Phosphatase 73 U/L (41-126); Calcium 9.3 mg/dL (8.7-10.3); Carbon Dioxide 22.3 mmol/L (21.6-31.8); Globulin 3.3 g/dL (1.6-3.3); Total Bilirubin 0.7 mg/dL (0.3-1.2); Total Protein 6.9 g/dL (6.2-8.2)
--- NOTE | 2024-03-20 16:35 | P.PN ---
Progress Note - Text Progress Note Date: 03/20/24 The patient is seen and examined at bedside. She is accompanied by her daughter. She continues to have significant symptoms at her mid back. The pain is worse when she tries to mobilize or ambulate and sit up. She is not having numbness tingling in her lower extremities. The morphine has been helping but she is still requiring IV medications. She denies any changes in bowel bladder function. She denies any nausea and vomiting. She was able to tolerate her regular diet today. She is afebrile stable vital signs At her back there is no open wounds lacerations or abrasions. She has tenderness at her mid and lower thoracic spine. Abdomen soft nontender Lower extremities have sustained dorsiflexion plantarflexion EHL. No pain at her hips. Her calves and thighs are soft nontender. I again reviewed her imaging of her new CT scan as well as her prior imaging with her MRI and her x-rays at her thoracic and lumbar spine. The new CT scan shows compression deformities of T8 T10 and T11. The T10 fracture appears to be new compared to prior films just 2 weeks ago. Assessment and plan Acute fracture T10 Subacute compression fracture T8 and T11 osteoporotic compression fractures T8 T10 11 Thoracic back pain and inability to ambulate due to back pain Failed conservative treatment with bracing I again had a long discussion with the patient and with her daughter at bedside. We discussed the different treatment options ranging from conservative to surgical. The patient has not done well with conservative treatment or bracing and continues to have worsening and she in fact has a new fracture. She is interested in pursuing possibly of kyphoplasty. I think kyphoplasty can offer her some benefit and it would allow us to get samples of the bone for biopsy as well. She has compression fractures at T8-T10 and T11 all of which seem to be symptomatic for her. We discussed the risk complications alternatives and benefits of biopsy with kyphoplasty at those levels. Discussed the risk of bleeding risk of infection risk of need for further surgery was of decrease or loss of motion cement extravasation problems with the cement problems with anesthesia was all explained to her we also explained the fact that surgery is no guarantee that she will have good relief and she may continue to have symptoms despite our best efforts to treat the issues. I answered all her questions to the best my ability limb she can understand and she is agreeable to proceed. She signed informed consent with us. We will proceed with kyphoplasty with biopsy of T8 T10 and T11 in the operating room tomorrow. She will be n.p.o. after midnight.
--- NOTE | 2024-03-20 18:44 | P.PN ---
Subjective Progress Note Date: 03/20/24 Hospital Course: Patient is a very pleasant 83-year-old female with a past medical history of hypertension, left breast cancer status post lumpectomy, anxiety, diverticulosis with previous episode of diverticulitis, GERD, and known compression fracture of T8 and T11 with peripheral neuropathies and following outpatient with Dr. Howard. She presented to [facility] for worsening lower back pain. CT was completed confirming compression fracture deformities of T8 and T11 along with new compression fracture deformity reported and T10. She was transferred to our facility for continued medical management with pain control and evaluation by her orthopedic surgeon. Upon arrival to our facility, patient underwent evaluation in the emergency department. Vital signs upon arrival show blood pressure 194/94, heart rate 79, respiratory rate 16, temp 98.1 F, and SpO2 of 92% on room air. Labs completed and reviewed. CBC showing macrocytic anemia with hemoglobin of 11.8 and MCV of 99.7. Coagulation profile normal findings. BMP showing hyponatremia with sodium of 129 and hypocarbia with bicarb of 21 and slightly elevated anion gap of 19 otherwise normal findings. Physical exam: Patient seen and fully evaluated at bedside this morning. She remains alert to person, place, and situation but confused to time. She does report at the moment her back pain is better controlled than yesterday. She continues to deny having any numbness/tingling/weakness in her extremities and denies any involuntary loss of bowel or bladder. Nursing staff did report patient had increased confusion overnight, will place order for urinalysis to rule out UTI. Vital signs reviewed and stable. General: Nontoxic, no distress and appears stated age. Appears in mild distress secondary to reports of pain. Derm: Skin warm and dry, normal coloration for ethnicity. Head: Atraumatic, normocephalic and symmetric. Eyes: EOM's intact, no lid lag, and anicteric sclera Mouth: no lip lesions, mucus membranes moist Cardiovascular: regular rate and rhythm with normal S1S2, no murmur, positive posterior tibial pulses bilaterally, and cap refill < 2 seconds. Lungs: Respirations even, regular, and unlabored on room air. Lungs CTA bilaterally, no rhonchi, no rales, no wheezing, and no accessory muscle usage. Abdominal: soft, nontender to palpation, no guarding, no appreciable organomegaly Ext: No gross muscle atrophy, no edema, no contractures. Movement and sensation intact. Neuro: Speech clear, face symmetrical and CN II-XII grossly intact with no noted focal neuro deficits. Psych: Alert and oriented to person, place and situation confused to time. Assessment and Plan of Care: Intractable lumbar back pain Known T8 and T11 compression fracture with new acute T10 compression fracture -Symptomatic care and pain management. Patient started on scheduled Ofirmev 1000 mg every 6 hours to continue with morphine every 4 hours as needed for uncontrolled breakthrough pain. Patient also to continue with Lyrica 100 mg 3 times daily and Robaxin 750 mg 3 times daily as needed for muscle spasms. -Orthospine surgery team following and planning to take patient for kyphoplasty with biopsy on 03/21/2024. -Maintain fall precautions Preoperative clearance -NSQIP surgical risk score was calculated. Patient at an above average risk for serious complications at 13.7% with average risk being 9.5%, increased risk for development of pneumonia 2.3% with average risk of 1.3%, increased risk for cardiac complication at 1.1% with average risk being 0.4%, and an increased risk of at 0.5% with average risk being 0.1%. -Patient is at an above average risk to undergo surgical intervention for planned kyphoplasty. Would recommend preoperative EKG to be completed and order being placed. If EKG showing no acute abnormalities and Patient and family educated on above average risk of surgical procedure and still in agreement to proceed, there are no absolute contraindications for patient to undergo surgery from a medical standpoint at this time. Hypertension -Continue losartan 50 mg daily. Anxiety -Continue Paxil 20 mg daily. GERD -Continue Protonix 40 mg nightly. Data and imaging reviewed: Labs completed and reviewed. CBC showing stable macrocytic anemia with hemogl obin of 10.4 and MCV of 99.7. BMP showing mild hyponatremia with sodium of 132. Blood glucose 86. Magnesium 1.8. Liver profile normal findings. -Vital signs reviewed. Blood pressure 169/82, heart rate 94, respiratory rate 16, temp 97.7 F, and SpO2 100% on room air. CODE STATUS: Full code DVT prophylaxis: SCDs pending evaluation/recommendations from orthospine surgery team Anticipated discharge date: Pending clinical course Anticipated discharge place: Pending clinical course Patient was seen independently by Nurse Practitioner. This document was prepared using Dragon dictation software. Please allow for errors in cork insulation setter while rare they do occur. Osmin Carreon SLIPCOVER CUTTER rendered care for this patient independently, reviewed the findings and plan as documented in the note above and agree with plan. I did not physically speak with or examine the patient on this date. Objective - Vital Signs Vital signs: Vital Signs Temp 97.7 F 03/20/24 07:20 Pulse 94 03/20/24 07:20 Resp 16 03/20/24 07:20 BP 169/82 03/20/24 07:20 Pulse Ox 100 03/20/24 07:20 FiO2 Intake & Output 03/19/24 03/20/24 03/20/24 18:59 06:59 18:59 Intake Total 60 Output Total 700 Balance -700 60 Weight 68.039 kg Intake: Oral 60 Output: Urine 700 Other: Voiding Method Bedside Commode # Voids 1 - Labs CBC & Chem 7: 03/20/24 04:55 03/20/24 04:55 Labs: Abnormal Lab Results - Last 24 Hours (Table) 03/19/24 03/20/24 03/20/24 Range/Units 09:38 04:55 04:55 RBC 3.66 L 3.18 L (4.10-5.20) X 10*6/uL Hgb 11.8 L 10.4 L (12.0-15.0) g/dL Hct 36.5 L 31.7 L (37.2-46.3) % MCV 99.7 H 99.7 H (80.0-97.0) FL MCH 32.2 H 32.7 H (27.0-32.0) pg MPV 8.9 L 8.9 L (9.5-12.2) FL Sodium 132 L (135-145) mmol/L Albumin 3.6 L (3.8-4.9) g/dL Albumin/Globulin Ratio 1.09 L (1.60-3.17) Ratio
[2024-03-21] MEDS: ACETAMINOPHEN IV (For NPO) 1,000 MG in EMPTY BAG 1 BAG IVPB SCH (00:01)
[2024-03-21] MEDS ORDERED: fentaNYL (PF) 50 MCG/ML 2 ML AMP IV PRN (07:00)
[2024-03-21] MEDS ORDERED: HYDROmorphone 0.5 MG/0.5 ML SYRINGE IVP PRN ×2 (07:00→17:01)
[2024-03-21 08:25] LABS: HCT 30.2 % (37.2-46.3); HGB 10.1 g/dL (12.0-15.0); MCH 32.9 pg (27.0-32.0); MCHC 33.4 g/dL (32.0-37.0); MCV 98.4 FL (80.0-97.0); Mean Platelet Volume 8.7 FL (9.5-12.2); NRBC Per 100 WBC 0 X 10*3/uL (0.00-0.01); Platelet Count 279 X 10*3/uL (140-440); RBC 3.07 X 10*6/uL (4.10-5.20); RDW 13.3 % (11.5-14.5); WBC 6.06 X 10*3/uL (4.50-10.00)
--- NOTE | 2024-03-21 08:41 | P.PN ---
Subjective Progress Note Date: 03/21/24 Hospital Course: Patient is a very pleasant 83-year-old female with a past medical history of hypertension, left breast cancer status post lumpectomy, anxiety, diverticulosis with previous episode of diverticulitis, GERD, and known compression fracture of T8 and T11 with peripheral neuropathies and following outpatient with Dr. Howard. She presented to [facility] for worsening lower back pain. CT was completed confirming compression fracture deformities of T8 and T11 along with new compression fracture deformity reported and T10. She was transferred to our facility for continued medical management with pain control and evaluation by her orthopedic surgeon. Upon arrival to our facility, patient underwent evaluation in the emergency department. Vital signs upon arrival show blood pressure 194/94, heart rate 79, respiratory rate 16, temp 98.1 F, and SpO2 of 92% on room air. Labs completed and reviewed. CBC showing macrocytic anemia with hemoglobin of 11.8 and MCV of 99.7. Coagulation profile normal findings. BMP showing hyponatremia with sodium of 129 and hypocarbia with bicarb of 21 and slightly elevated anion gap of 19 otherwise normal findings. Physical exam: Vital signs reviewed and stable. General: Nontoxic, no distress and appears stated age. Appears in mild distress secondary to reports of pain. Derm: Skin warm and dry, normal coloration for ethnicity. Head: Atraumatic, normocephalic and symmetric. Eyes: EOM's intact, no lid lag, and anicteric sclera Mouth: no lip lesions, mucus membranes moist Cardiovascular: regular rate and rhythm with normal S1S2, no murmur, positive posterior tibial pulses bilaterally, and cap refill < 2 seconds. Lungs: Respirations even, regular, and unlabored on room air. Lungs CTA bilaterally, no rhonchi, no rales, no wheezing, and no accessory muscle usage. Abdominal: soft, nontender to palpation, no guarding, no appreciable organ omegaly Ext: No gross muscle atrophy, no edema, no contractures. Movement and sensation intact. Neuro: Speech clear, face symmetrical and CN II-XII grossly intact with no noted focal neuro deficits. Psych: Alert and oriented to person, place and situation confused to time. Assessment and Plan of Care: Intractable lumbar back pain Known T8 and T11 compression fracture with new acute T10 compression fracture -Symptomatic care and pain management. Patient started on scheduled Ofirmev 1000 mg every 6 hours to continue with morphine every 4 hours as needed for uncontrolled breakthrough pain. Patient also to continue with Lyrica 100 mg 3 times daily and Robaxin 750 mg 3 times daily as needed for muscle spasms. -Orthospine surgery team following and planning to take patient for kyphoplasty with biopsy later this afternoon -Maintain fall precautions Preoperative clearance -NSQIP surgical risk score was calculated. Patient at an above average risk for serious complications at 13.7% with average risk being 9.5%, increased risk for development of pneumonia 2.3% with average risk of 1.3%, increased risk for cardiac complication at 1.1% with average risk being 0.4%, and an increased risk of at 0.5% with average risk being 0.1%. -Preoperative EKG was needed mild interference present however EKG showing NSR at 72 bpm with T wave inversion in lead III otherwise no significant abnormalities including ST abnormalities on personal review and interpretation. -Patient is at an above average risk to undergo surgical intervention for p lanned kyphoplasty. If patient and family educated on above average risks of surgical procedure and still in agreement to proceed, there are no absolute contraindications for patient to undergo surgery from a medical standpoint at this time. Hypertension -Monitor vital signs and continue losartan 50 mg daily. Anxiety -Continue Paxil 20 mg daily. GERD -Continue Protonix 40 mg nightly. Data and imaging reviewed: Labs completed and reviewed. CBC showing stable macrocytic anemia with h emoglobin of 10.1 and MCV of 98.4. BMP showing continued improvement of hyponatremia with sodium of 134. Liver profile unremarkable with exception of mild hypoalbuminemia with albumin of 3.4. -Vital signs reviewed. Blood pressure elevated this morning at 172/84 prior to administration of antihypertensive medication, heart rate 69, respiratory rate 16, temp 97.4 F, and SpO2 of 92% on 2 L. CODE STATUS: Full code DVT prophylaxis: SCDs pending further recommendations from orthospine surgery t eam status post completion of kyphoplasty Anticipated discharge date: Pending clinical course Anticipated discharge place: Pending clinical course Patient was seen independently by Nurse Practitioner. This document was prepared using [employer] dictation software. Please allow for errors in shipping processor while rare they do occur. Osmin Carreon NP rendered care for this patient independently, reviewed the findings and plan as documented in the note above and agree with plan. I did not physically speak with or examine the patient on this date. Objective - Vital Signs Vital signs: Vital Signs Temp 97.4 F L 03/21/24 07:49 Pulse 69 03/21/24 07:49 Resp 16 03/21/24 07:49 BP 172/84 03/21/24 07:49 Pulse Ox 92 L 03/21/24 07:49 FiO2 Intake & Output 03/20/24 03/21/24 03/21/24 18:59 06:59 18:59 Other: Voiding Method Bedside Commode Bedside Commode # Voids 1 2 - Labs CBC & Chem 7: 03/21/24 03:28 03/21/24 03:28 Labs: Abnormal Lab Results - Last 24 Hours (Table) 03/20/24 03/21/24 Range/Units 04:55 03:28 RBC 3.07 L (4.10-5.20) X 10*6/uL Hgb 10.1 L (12.0-15.0) g/dL Hct 30.2 L (37.2-46.3) % MCV 98.4 H (80.0-97.0) FL MCH 32.9 H (27.0-32.0) pg MPV 8.7 L (9.5-12.2) FL Sodium 132 L (135-145) mmol/L Albumin 3.6 L (3.8-4.9) g/dL Albumin/Globulin Ratio 1.09 L (1.60-3.17) Ratio
[2024-03-21 08:44] LABS: ALT 12 U/L (8-44); AST 22 U/L (13-35); Albumin 3.4 g/dL (3.8-4.9); Albumin/Globulin Ratio 1.17 Ratio (1.60-3.17); Alkaline Phosphatase 70 U/L (41-126); BUN/Creat Ratio 18.43 Ratio (12.00-20.00); Blood Urea Nitrogen 12.9 mg/dL (9.0-27.0); Calcium 8.9 mg/dL (8.7-10.3); Carbon Dioxide 23.2 mmol/L (21.6-31.8); Chloride 103 mmol/L (96-109); Globulin 2.9 g/dL (1.6-3.3); Glucose 90 mg/dL (70-110); Magnesium 1.6 mg/dL (1.5-2.4); Sodium 134 mmol/L (135-145); Total Bilirubin 0.5 mg/dL (0.3-1.2); Total Protein 6.3 g/dL (6.2-8.2)
[2024-03-21] MEDS: LACTATED RINGERS 1,000 ML IV SCH (10:26)
[2024-03-21] MEDS: LACTATED RINGERS 500 ML IV ONE (14:09)
[2024-03-21] MEDS: ONDANSETRON 4 MG/2 ML VIAL IVP PRN (14:17)
[2024-03-21 14:56] LABS: Appearance,Urine Clear (Clear); Bilirubin,Urine Negative (Negative); Blood,Urine Negative (Negative); Color,Urine Colorless; Glucose,Urine (UA) Negative (Negative); Ketones,Urine Negative (Negative); Leukocyte Esterase,Urine Negative (Negative); Nitrite,Urine Negative (Negative); PH, Urine 5.5 (5.0-8.0); Protein,Urine Negative (Negative); Specific Gravity,Urine 1.014 (1.001-1.035); Urobilinogen,Urine <2.0 mg/dL (<2.0)
[2024-03-21] MEDS ORDERED: SUCCINYLCHOLINE CHLORIDE 200 MG/10 ML VIAL IV ONE (15:06)
[2024-03-21] MEDS ORDERED: PHENYLEPHRINE-0.9% NACL SYG 1,000 MCG/10 ML SYRINGE ONE (15:06)
[2024-03-21] MEDS ORDERED: ePHEDrine 50 MG/ML 1 ML VIAL ONE (15:06)
[2024-03-21] MEDS ORDERED: fentaNYL (PF) 50 MCG/ML 2 ML AMP ONE (15:06)
[2024-03-21] MEDS ORDERED: PROPOFOL 10 MG/ML 20 ML VIAL IV ONE (15:06)
[2024-03-21] MEDS ORDERED: LIDOCAINE 1% INJ 10MG/ML (20 ML MDV) ONE (15:06)
[2024-03-21] MEDS ORDERED: ceFAZolin 1 GM/50 ML BAG (PMX) ONE (15:06)
[2024-03-21] MEDS ORDERED: MIDAZOLAM 2 MG/2 ML VIAL ONE (15:06)
[2024-03-21] MEDS: SODIUM CHLORIDE 0.9% 50 ML with ceFAZolin 2 GM IV ONE (15:11)
[2024-03-21] MEDS: LIDOCAINE 2%-EPI 1:100,000 20 ML VIAL SQ ONE ×3 (15:15→16:11)
[2024-03-21] MEDS: BUPIVACAINE (PF) 0.5% 30 ML VIAL SQ ONE ×3 (15:15→16:11)
[2024-03-21] MEDS: IOPAMIDOL M200 10 ML VIAL MISCELLANE ONE ×2 (15:15)
[2024-03-21] MEDS: IV FLUID CONTINUATION 1,000 ML IV ONE (16:00)
[2024-03-21] MEDS: DEXAMETHASONE SOD PHOSPHATE 4 MG/ML 1 ML VIAL IV ONE (16:59)
[2024-03-21] MEDS ORDERED: traMADol 50 MG TAB PO PRN (17:01)
[2024-03-21] MEDS ORDERED: ONDANSETRON 4 MG/2 ML VIAL IVP PRN (17:01)
[2024-03-21] MEDS ORDERED: ACETAMINOPHEN TAB 325 MG TAB PO PRN (17:01)
[2024-03-21] MEDS ORDERED: BENZOCAINE/MENTHOL LOZENG 1 EACH LOZENGE MUCOUS MEM PRN (17:01)
--- NOTE | 2024-03-21 17:09 | P.OP ---
Date of Procedure: 03/21/24 Preoperative Diagnosis: Osteoporotic compression fracture T8 T10 and T11, thoracic back pain, limited ambulation Subacute compression fracture T8 and T11, acute compression fracture T10 Postoperative Diagnosis: Same Anesthesia: GETA Pathology: other (Vertebral body biopsies from T10 and T11 sent separately to pathology) Condition: stable Disposition: PACU Description of Procedure: BRIEF OPERATIVE NOTE Preoperative Diagnosis: Osteoporotic compression fracture T8 T10 and T11, thoracic back pain, limited ambulation Subacute compression fracture T8 and T11, acute compression fracture T10 Postoperative Diagnosis: Same Procedure: Kyphoplasty T8, T10, T11 Vertebral body biopsy T10 and T11 Use of biplanar fluoroscopic guidance Surgeon: Dr. Franks Coil Winder Hand: Kavon BOONE who is present throughout the entire the case persistence during positioning, dissection, exposure, visualization, and all crucial elements of the case as well as closure. Anesthesia: General anesthesia Estimated blood loss: Less than 30 mL Specimen: Vertebral body biopsy from T10 and T11 sent to pathology in formalin Complications: None apparent Components implanted: Bone cement Disposition: To recovery room in good stable condition. OPERATIVE INDICATIONS The patient has been having issues in their back ever since sustaining an injury when she fell. She was found last month to have a compression deformity at both T8 and T11 when she was seen in clinic. We initiated conservative treatment though she was having some difficulty and considering the possibility of surgical kyphoplasty at these levels. She was able to manage to some degree at home but apparently was doing some activity at her house and had worsening of her pain and symptoms and had to present to the hospital as she was essentially unable to ambulate. She is found to have a new fracture also at T10. With her worsening pain and multiple fractures she was interested in surgical intervention with kyphoplasty. The patient has been through conservative treatment. They attempted conservative care with bracing however they're not having any benefit despite brace use. They continue to have significant pain and debility due to their fracture. We discussed various treatment options including surgery, and the patient wishes to proceed with surgery We discussed the risk, patient's alternatives and benefits of surgery including but not limited to, risk of bleeding risk of infection, risk of need for further surgery, risk of decreased, loss of motion, loss of function, cement extravasation, nerve damage, paralysis, heart attack, blindness and . OPERATIVE SUMMARY After discussing all the risks, patient alternatives and benefits at length, the patient elected to proceed with surgical intervention, signed informed consent, and presented for their procedure. The patient was seen and examined in the preoperative holding area and the surgical site was marked. The patient was given antibiotics and brought to the operating room. The patient was sedated and intubated by anesthesia in standard fashion. The patient was positioned on to the operating room table in a prone position on the appropriate well-padded and well molded bilateral chest rolls. We were careful to pad any bony prominences and pressure points. We were careful to maintain the patient's cervical spine and good neutral alignment and position throughout. We used 2 C-arm machines to establish biplanar fluoroscopic guidance in AP and lateral positions. We were able to localize the fractures appropriately. The patient was prepped and draped in a normal standard fashion. An appropriate timeout and keystone protocol performed. We were able to proceed with the surgery. I was able to easily identify the fractures at T8 T10 and T11 appropriately. The local wound area was infiltrated with local anesthetic. An incision was made over the lateral aspect of the pedicle over the appropriate levels on the right first at T8 and then at T10 and T11 with a small 2 mm stab incision. Intraoperative fluoroscopy was taken which showed a marker at the appropriate level. With the appropriate level positively confirmed, I was able to position a sharp trocar over the lateral aspect of the pedicle. As able to advance the trocar into the pedicle and into the posterior aspect of vertebral body being careful to avoid penetration cephalad caudad or medially. The trocar was placed appropriately into the posterior aspect of vertebral body at the appropriate levels. I did this similarly first at T8 and then T10 and then T11 this was confirmed with C-arm guidance. With the trocar intact I was then able to take a bone biopsy with a biopsy punch or a bony drill. This was done first at T10 and T11. The biopsy specimen was passed off to be sent to pathology in formalin. I was then able to place the kyphoplasty balloon within the vertebral body. The position was checked on C-arm. I was able to inflate the balloon under low pressure and visualization with C-arm. The balloon was well enclosed within the vertebral body. There was excellent fill at both T10 and T11. T8 had significant compression with about 70% compression height loss and had only a small amount of balloon inflation. The cement was prepared. With the cement at appropriate working condition the balloons were deflated and removed. I was able to place bony cement with trocar with the cement delivery device under low pressure. It had good fill within the vertebral body. There is no evidence of any extravasation of the cement posteriorly toward the canal. The cement was well contained at the appropriate levels. The cement was allowed to cure appropriately. The trochars removed and final images were taken on C-arm. This showed the cement at the appropriate levels. I was able to place approximately 1-1/2 cc of bone cement at T8 and approximately 5 cc of bone cement T11 and T10. We were able to proceed with closure. The wound was cleaned and dried and dressed with the appropriate dressing. The drapes were broken down. The patient was gently rolled back onto their hospital bed being careful to maintain their cervical spine and good neutral alignment and position. They were woken up by anesthesia, extubated, and brought to the recovery room in good stable condition. The patient will be admitted to the hospital for observation and for appropriate postoperative care, medical management and monitoring. We will continue to follow them closely about the postoperative course.
[2024-03-22 04:23] VITALS: TEMP 98.3
--- NOTE | 2024-03-22 07:12 | XR ---
EXAMINATION TYPE: XR thoracic spine 2V, FL guidance operating room DATE OF EXAM: 03/21/2024 FLUOROSCOPY T8. T10, T11 Kyphoplasty. 53 secs. 6 images. DAP=30.413 Dr. Franks [facility], Workstation: [email or web address], 03/22/2024 7:10 AM
[2024-03-22] MEDS: HYDROcodone/APAP 5-325MG 1 EACH TAB PO PRN (08:14)
[2024-03-22 08:40] VITALS: BP 169/93; PULSE 92; RESP 17
[2024-03-22 09:06] LABS: HGB 10.5 g/dL (12.0-15.0); MCH 31.4 pg (27.0-32.0); MCHC 31.8 g/dL (32.0-37.0); MCV 98.8 FL (80.0-97.0); Mean Platelet Volume 8.7 FL (9.5-12.2); NRBC Per 100 WBC 0 X 10*3/uL (0.00-0.01); Platelet Count 284 X 10*3/uL (140-440); RBC 3.34 X 10*6/uL (4.10-5.20); RDW 13.1 % (11.5-14.5); WBC 7.01 X 10*3/uL (4.50-10.00)
[2024-03-22 09:42] LABS: Magnesium 1.5 mg/dL (1.5-2.4)
[2024-03-22 09:47] LABS: ALT 15 U/L (8-44); AST 43 U/L (13-35); Albumin 3.7 g/dL (3.8-4.9); Albumin/Globulin Ratio 1.23 Ratio (1.60-3.17); Alkaline Phosphatase 106 U/L (41-126); Blood Urea Nitrogen 7.2 mg/dL (9.0-27.0); Calcium 9.1 mg/dL (8.7-10.3); Carbon Dioxide 24.5 mmol/L (21.6-31.8); Chloride 99 mmol/L (96-109); Glucose 107 mg/dL (70-110); Potassium 3.7 mmol/L (3.5-5.5); Sodium 132 mmol/L (135-145); Total Bilirubin 0.5 mg/dL (0.3-1.2); Total Protein 6.7 g/dL (6.2-8.2)
--- NOTE | 2024-03-22 09:55 | P.PN ---
Progress Note - Text Progress Note Date: 03/22/24 Postoperative day #1 Patient is seen and examined today at bedside. The patient has some pain around the surgical site as expected. Pain is being controlled with medication. She feels her pain at her back is improved. She has already been ambulatory in the hallways with therapy. Physical Exam Afebrile with stable vital signs Abdomen is soft nontender. Chest has good excursion deep and space expiration The incision site is clean dry and intact. No erythema there is no purulence. Extremities have not had neurologic change from prior to surgery. Calves and thighs were soft nontender without evidence of DVT. Assessment/Plan Postoperative day 1 status post kyphoplasty T8 T10 and T11 The patient is happy with her surgery thus far. Her pain seems to be improved. Patient is progressing as expected from the surgery. We will continue to increase the patient's mobilization with therapy. We will continue pain control with oral From an orthopedic spine standpoint is okay for the patient to discharge to home with appropriate assistance. She has significant family support and [place] property with her family. I discussed this with the housestaff's and family as well
--- NOTE | 2024-03-22 16:12 | P.DS ---
Providers Date of admission: 03/20/24 07:46 Attending physician: Asad Rouse MD Consults: 03/18/24 20:12 Consult Physician Routine Consulting Provider: Jorge Franks Consult Reason/Comments: known Do you want consulting provider notified?: Yes Primary care physician: Monalisa Calvo [facility] Course: Discharge Diagnosis: Intractable lumbar back pain Known T8 and T11 compression fracture with new acute T10 compression fracture status post kyphoplasty T8 T10 and T11 on 03/21/2024 Hypertension Anxiety GERD Hospital Course: Patient is a very pleasant 83-year-old female with a past medical history of hypertension, left breast cancer status post lumpectomy, anxiety, diverticulosis with previous episode of diverticulitis, GERD, and known compression fracture of T8 and T11 with peripheral neuropathies and following outpatient with Dr. Howard. She presented to [facility] for worsening lower back pain. CT was completed confirming compression fracture deformities of T8 and T11 along with new compression fracture deformity reported and T10. She was transferred to our facility for continued medical management with pain control and evaluation by her orthopedic surgeon. Upon arrival to our facility, patient underwent evaluation in the emergency department. Vital signs upon arrival show blood pressure 194/94, heart rate 79, respiratory rate 16, temp 98.1 F, and SpO2 of 92% on room air. Labs completed and reviewed. CBC showing macrocytic anemia with hemoglobin of 11.8 and MCV of 99.7. Coagulation profile normal findings. BMP showing hyponatremia with sodium of 129 and hypocarbia with bicarb of 21 and slightly elevated anion gap of 19 otherwise normal findings. Patient started on scheduled Ofirmev 1000 mg every 6 hours to continue with morphine every 4 hours as needed for uncontrolled breakthrough pain. Patient also to continue with Lyrica 100 mg 3 times daily and Robaxin 750 mg 3 times daily as needed for muscle spasms. Orthopedic consulted, patient was taken for kyphoplasty T8 T10 and T11 on 03/21/2024, tolerated procedure well, was cleared for discharge by Ortho on 03/22. Patient seen and examined at bedside.[] Vital signs reviewed and stable. General: Nontoxic, no distress and appears stated age. Appears in mild distress secondary to reports of pain. Derm: Skin warm and dry, normal coloration for ethnicity. Head: Atraumatic, normocephalic and symmetric. Eyes: EOM's intact, no lid lag, and anicteric sclera Mouth: no lip lesions, mucus membranes moist Cardiovascular: regular rate and rhythm with normal S1S2, no murmur, positive posterior tibial pulses bilaterally, and cap refill < 2 seconds. Lungs: Respirations even, regular, and unlabored on room air. Lungs CTA bilaterally, no rhonchi, no rales, no wheezing, and no accessory muscle usage. Abdominal: soft, nontender to palpation, no guarding, no appreciable organomegaly Ext: No gross muscle atrophy, no edema, no contractures. Movement and sensation intact. Postop dressing clean and dry Neuro: Speech clear, face symmetrical and CN II-XII grossly intact with no noted focal neuro deficits. Psych: Alert and oriented to person, place and situation confused to time. A total of 40 minutes of time were spent preparing this complex discharge summary. Patient was discharged on 03/22/2024. Patient Condition at Discharge: Fair Plan - Discharge Summary New Discharge Prescriptions: Continue Omeprazole 40 mg PO DAILY PARoxetine [Paxil] 20 mg PO DAILY Pregabalin [Lyrica] 100 mg PO TID HYDROcodone/APAP 5-325MG [Crary 5-325] 1 tab PO Q6HR PRN PRN Reason: Pain Losartan [Cozaar] 50 mg PO DAILY methocarbamoL [Robaxin-750] 750 mg PO TID PRN PRN Reason: Muscle Spasm Discharge Medication List Omeprazole 40 mg PO DAILY 04/15/16 [History] HYDROcodone/APAP 5-325MG [Crary 5-325] 1 tab PO Q6HR PRN 03/19/24 [History] Losartan [Cozaar] 50 mg PO DAILY 03/19/24 [History] PARoxetine [Paxil] 20 mg PO DAILY 03/19/24 [History] Pregabalin [Lyrica] 100 mg PO TID 03/19/24 [History] methocarbamoL [Robaxin-750] 750 mg PO TID PRN 03/19/24 [History] Follow up Appointment(s)/Referral(s): Jorge Franks DO [Doctor of Osteopathic Medicine] - 03/27/24 10:45 am None,Stated [REFERRING] - 1-2 days Home Care,[facility] [NON-STAFF] - As Needed Activity/Diet/Wound Care/Special Instructions: Keep site clean. May shower with waterproof Tegaderm intact. Do not soak in a tub. After 72 hours postoperatively, patient May remove dressing and then may shower with area uncovered. Leave glue intact and allow it to fray off on its own. May ambulate as tolerated. Encouraged use of brace use when ambulating. Avoid heavy or rigorous activity. No repetitive bending twisting or lifting. No overhead work. Discharge Disposition: HOME WITH HOME HEALTH SERVICES
== END 2024-03-22 11:21 | disposition home health service (06) | DRG 516 ==
LOC: EC 20:01 → 4SSUR 20:14 → OBSVTOIN 03-20 07:46
PROVIDERS: ADMIT Internal Medicine; ATTEND Internal Medicine
PROC: 0PS43ZZ Reposition Thoracic Vertebra, Percutaneous Approach (ICD-10-PCS; principal; 2024-03-21 13:45)
PROC: 0PU43JZ Supplement Thoracic Vertebra with Synthetic Substitute, Percutaneous Approach (ICD-10-PCS; principal; 2024-03-21 13:45)
PROC: 8E0WXBF Computer Assisted Procedure of Trunk Region, With Fluoroscopy (ICD-10-PCS; principal; 2024-03-21 13:45)
DX: M80.08XA Age-related osteoporosis with current pathological fracture, vertebra(e), initial encounter for fracture (principal); E87.1 Hypo-osmolality and hyponatremia; D53.9 Nutritional anemia, unspecified; F41.9 Anxiety disorder, unspecified; I10 Essential (primary) hypertension; G62.9 Polyneuropathy, unspecified; K57.90 Diverticulosis of intestine, part unspecified, without perforation or abscess without bleeding; K21.9 Gastro-esophageal reflux disease without esophagitis; W19.XXXA Unspecified fall, initial encounter; Z79.82 Long term (current) use of aspirin; Z79.899 Other long term (current) drug therapy; Z85.3 Personal history of malignant neoplasm of breast
CPT/HCPCS: 51798; 72070; 72100; 80053; 81003; 83735; 84100; 85025; 85027; 85610; 85730; 88307; 88311; 88341; 88342; 93005; 96361; 96374; 96375; 99285

== ENCOUNTER 2024-04-07 02:45 | Inpatient (IN) | payer MEDICARE ==
--- NOTE | 2024-04-07 03:35 | ED ---
General Adult HPI <Obdulia Briceño Trudi - Last Filed: 04/07/24 08:16> - General Source: patient, EMS, RN notes reviewed Mode of arrival: EMS Limitations: no limitations <Meri Springer - Last Filed: 04/09/24 03:43> - General Chief complaint: Abdominal Pain Stated complaint: Back pain Time Seen by Provider: 04/07/24 02:49 - History of Present Illness Initial comments: 83-year-old female presents to the emergency department for evaluation of "pain all over."Patient reports that she has been experiencing pain since December. She notes that recently she was hospitalized for back pain and had a procedure performed on her back. She states that the pain has continued to worsen. Patient also states that she has been experiencing abdominal pain mostly in the epigastric region. Patient feels that so severe that it caused her to fall earlier today. She follows with Dr. Franks for her back. (Meri Springer) - Related Data Home Medications Medication Instructions Recorded Confirmed Losartan [Cozaar] 50 mg PO DAILY 03/19/24 04/07/24 PARoxetine [Paxil] 20 mg PO DAILY 03/19/24 04/07/24 Acetaminophen Tab [Tylenol Tab] 500 mg PO Q6H PRN 04/07/24 04/07/24 Pantoprazole [Protonix] 40 mg PO DAILY 04/07/24 04/07/24 Sucralfate [Carafate] 1 gm PO ACHS 04/07/24 04/07/24 oxyCODONE-APAP 5-325MG [Percocet 1 tab PO Q6HR PRN 04/07/24 04/07/24 5-325 mg] Allergies Allergy/AdvReac Type Severity Reaction Status Date / Time No Known Allergies Allergy Verified 04/07/24 08:26 Review of Systems ROS Other: All systems not noted in ROS Statement are negative. <Obdulia Briceño - Last Filed: 04/07/24 08:16> ROS Other: All systems not noted in ROS Statement are negative. <Meri Springer - Last Filed: 04/09/24 03:43> ROS Statement: Those systems with pertinent positive or pertinent negative responses have been documented in the HPI. Past Medical History Past Medical History: Cancer, GERD/Reflux Additional Past Medical History / Comment(s): diverticulitis, left breast cancer History of Any Multi-Drug Resistant Organisms: None Reported Past Surgical History: Appendectomy, Breast Surgery, Orthopedic Surgery, Tonsillectomy Additional Past Surgical History / Comment(s): left breast biopsy, left shoulder rotator cuff Past Anesthesia/Blood Transfusion Reactions: No Reported Reaction Past Psychological History: Anxiety Smoking Status: Former smoker Past Alcohol Use History: Rare Past Drug Use History: None Reported - Past Family History Sister(s) Family Medical History: Cancer Brother(s) Family Medical History: Cancer <Meri Springer - Last Filed: 04/09/24 03:43> General Exam Limitations: no limitations General appearance: alert, in no apparent distress Head exam: Present: atraumatic, normocephalic, normal inspection Eye exam: Present: normal appearance, PERRL, EOMI. Absent: scleral icterus, conjunctival injection, periorbital swelling ENT exam: Present: normal exam, mucous membranes moist Neck exam: Present: normal inspection. Absent: tenderness, meningismus, lymphadenopathy Respiratory exam: Present: normal lung sounds bilaterally. Absent: respiratory distress, wheezes, rales, rhonchi, stridor Cardiovascular Exam: Present: regular rate, normal rhythm, normal heart sounds. Absent: systolic murmur, diastolic murmur, rubs, gallop, clicks GI/Abdominal exam: Present: soft. Absent: distended, tenderness, guarding, rebound, rigid Extremities exam: Present: normal inspection, full ROM, normal capillary refill. Absent: tenderness, pedal edema, joint swelling, calf tenderness Back exam: Present: tenderness (Low lumbar) Neurological exam: Present: alert, oriented X3 Psychiatric exam: Present: normal affect, normal mood Skin exam: Present: warm, dry, intact, normal color. Absent: rash <Meri Springer - Last Filed: 04/09/24 03:43> Course Vital Signs 04/07/24 04/07/24 04/07/24 02:50 07:00 11:29 Temperature 98.3 F 98.1 F 98 F Pulse Rate 91 84 84 Respiratory 26 H 16 18 Rate Blood Pressure 172/84 141/82 148/85 O2 Sat by Pulse 98 97 96 Oximetry 04/07/24 12:12 Temperature 98 F Pulse Rate 81 Respiratory 18 Rate Blood Pressure 144/80 O2 Sat by Pulse 96 Oximetry Medical Decision Making - Lab Data Result diagrams: 04/07/24 04:18 04/07/24 04:18 <Obdulia Briceño - Last Filed: 04/07/24 08:16> - Lab Data Result diagrams: 04/08/24 03:47 04/08/24 03:47 <IzaiahelisaMeri neil - Last Filed: 04/09/24 03:43> - Medical Decision Making EKG completed at 427 demonstrates sinus rhythm with a rate of 88. MI interval 173. QRS 100. QTc of 412. No acute ST segment elevations or depressions (KeyannaObdulia Brush) Was pt. sent in by a medical professional or institution (, PA, [employer]', urgent care, hospital, or penitentiary...) When possible be specific @ -No Did you speak to anyone other than the patient for history (EMS, parent, family, police, friend...)? What history was obtained from this source @ -No Did you review nursing and triage notes (agree or disagree)? Why? @ -I reviewed and agree with nursing and triage notes Were old charts reviewed (outside hosp., previous admission, EMS record, old EKG, old radiological studies, urgent care reports/EKG's, penitentiary records)? Report findings @ -No old charts were reviewed Differential Diagnosis (chest pain, altered mental status, abdominal pain women, abdominal pain men, vaginal bleeding, weakness, fever, dyspnea, syncope, headache, dizziness, GI bleed, back pain, seizure, CVA, palpatations, mental health, musculoskeletal)? @ -Differential Back Pain: Strain, zoster, cauda equina syndrome, epidural abscess, vertebral osteomyelitis, discitis, fracture, subluxation, disc herniation, DJD, spinal stenosis, dissection, AAA, pancreatitis, peptic ulcer disease, pyelonephritis, kidney stone, this is not meant to be an all-inclusive list. EKG interpreted by me (3pts min.). @ -EKG at X-rays interpreted by me (1pt min.). @ -None done CT interpreted by me (1pt min.). @ -None done U/S interpreted by me (1pt. min.). @ -None done What testing was considered but not performed or refused? (CT, X-rays, U/S, labs)? Why? @ -None What meds were considered but not given or refused? Why? @ -None Did you discuss the management of the patient with other professionals (professionals i.e. Dr., PA, [employer]', lab, RT, psych nurse, social service worker, healthcare management consultant, te acher, hospital chief executive officer, caseworker protective services)? Give summary @ -No Was smoking cessation discussed for >3mins.? @ -No Was critical care preformed (if so, how long)? @ -No Were there social determinants of health that impacted care today? How? (Homelessness, low income, unemployed, alcoholism, drug addiction, transportation, low edu. Level, literacy, decrease access to med. care, usp, rehab)? @ -No Was there de-escalation of care discussed even if they declined (Discuss DNR or withdrawal of care, Hospice)? DNR status @ -No What co-morbidities impacted this encounter? (DM, HTN, Smoking, COPD, CAD, C ancer, CVA, ARF, Chemo, Hep., AIDS, mental health diagnosis, sleep apnea, morbid obesity)? @ -None Was patient admitted / discharged? Hospital course, mention meds given and route, prescriptions, significant lab abnormalities, going to OR and other pertinent info. @ -Patient presented the emergency department for evaluation of pain all over. Patient reports history of chronic pain in her back due to compression fractures. Patient also complaining of abdominal pain. Patient is unsure where most of her pain is located. Laboratory studies and EKG were ordered. Patient signed out to Dr. Briceño pending workup and disposition. Undiagnosed new problem with uncertain prognosis? @ -No Drug Therapy requiring intensive monitoring for toxicity (Heparin, Nitro, Insulin, Cardizem)? @ -No Were any procedures done? @ -No Diagnosis/symptom? @ -Default Acute, or Chronic, or Acute on Chronic? @ -Default Uncomplicated (without systemic symptoms) or Complicated (systemic symptoms)? @ -Default Side effects of treatment? @ -No Exacerbation, Progression, or Severe Exacerbation? @ -No Poses a threat to life or bodily function? How? (Chest pain, [place], [place], pneumonia, PE, COPD, DKA, ARF, appy, cholecystitis, CVA, Diverticulitis, Homicidal, Suicidal, threat to staff... and all critical care pts) @ -No (Kulka,Meri) - Lab Data Lab Results 04/07/24 04/07/24 04/07/24 Range/Units 04:10 04:18 04:18 WBC 6.5 (3.8-10.6) k/uL RBC 3.68 L (3.80-5.40) m/uL Hgb 12.3 (11.4-16.0) gm/dL Hct 37.1 (34.0-46.0) % MCV 100.6 H (80.0-100.0) fL MCH 33.4 (25.0-35.0) pg MCHC 33.1 (31.0-37.0) g/dL RDW 13.5 (11.5-15.5) % Plt Count 356 (150-450) k/uL MPV 6.7 Neutrophils % 71 % Lymphocytes % 17 % Monocytes % 8 % Eosinophils % 1 % Basophils % 0 % Neutrophils # 4.6 (1.3-7.7) k/uL Lymphocytes # 1.1 (1.0-4.8) k/uL Monocytes # 0.5 (0-1.0) k/uL Eosinophils # 0.1 (0-0.7) k/uL Basophils # 0.0 (0-0.2) k/uL ESR (0-30) mm/Hr Sodium 134 L (137-145) mmol/L Potassium 4.4 (3.5-5.1) mmol/L Chloride 101 (98-107) mmol/L Carbon Dioxide 22 (22-30) mmol/L Anion Gap 11 mmol/L BUN 26 H (7-17) mg/dL Creatinine 0.83 (0.52-1.04) mg/dL Est GFR (CKD-EPI)AfAm 75 (>60 ml/min/1.73 sqM) Est GFR (CKD-EPI)NonAf 65 (>60 ml/min/1.73 sqM) Glucose 109 H (74-99) mg/dL Calcium 10.7 H (8.4-10.2) mg/dL Total Bilirubin 0.9 (0.2-1.3) mg/dL AST 33 (14-36) U/L ALT 18 (4-34) U/L Alkaline Phosphatase 122 (38-126) U/L C-Reactive Protein (<1.0) mg/dL Total Protein 7.9 (6.3-8.2) g/dL Albumin 4.2 (3.5-5.0) g/dL Amylase 47 (30-110) U/L Lipase 43 (23-300) U/L Urine Color Colorless Urine Appearance Clear (Clear) Urine pH 5.0 (5.0-8.0) Ur Specific [place] 1.023 (1.001-1.035) Urine Protein Trace H (Negative) Urine Glucose (UA) Negative (Negative) Urine Ketones 1+ H (Negative) Urine Blood Negative (Negative) Urine Nitrite Negative (Negative) Urine Bilirubin Negative (Negative) Urine Urobilinogen <2.0 (<2.0) mg/dL Ur Leukocyte Esterase Moderate H (Negative) Urine RBC 1 (0-5) /hpf Urine WBC 3 (0-5) /hpf Urine Mucus Rare H (None) /hpf 04/07/24 04/07/24 Range/Units 04:18 04:18 WBC (3.8-10.6) k/uL RBC (3.80-5.40) m/uL Hgb (11.4-16.0) gm/dL Hct (34.0-46.0) % MCV (80.0-100.0) fL MCH (25.0-35.0) pg MCHC (31.0-37.0) g/dL RDW (11.5-15.5) % Plt Count (150-450) k/uL MPV Neutrophils % % Lymphocytes % % Monocytes % % Eosinophils % % Basophils % % Neutrophils # (1.3-7.7) k/uL Lymphocytes # (1.0-4.8) k/uL Monocytes # (0-1.0) k/uL Eosinophils # (0-0.7) k/uL Basophils # (0-0.2) k/uL ESR 14 (0-30) mm/Hr Sodium (137-145) mmol/L Potassium (3.5-5.1) mmol/L Chloride (98-107) mmol/L Carbon Dioxide (22-30) mmol/L Anion Gap mmol/L BUN (7-17) mg/dL Creatinine (0.52-1.04) mg/dL Est GFR (CKD-EPI)AfAm (>60 ml/min/1.73 sqM) Est GFR (CKD-EPI)NonAf (>60 ml/min/1.73 sqM) Glucose (74-99) mg/dL Calcium (8.4-10.2) mg/dL Total Bilirubin (0.2-1.3) mg/dL AST (14-36) U/L ALT (4-34) U/L Alkaline Phosphatase (38-126) U/L C-Reactive Protein 0.7 (<1.0) mg/dL Total Protein (6.3-8.2) g/dL Albumin (3.5-5.0) g/dL Amylase (30-110) U/L Lipase (23-300) U/L Urine Color Urine Appearance (Clear) Urine pH (5.0-8.0) Ur Specific [place] (1.001-1.035) Urine Protein (Negative) Urine Glucose (UA) (Negative) Urine Ketones (Negative) Urine Blood (Negative) Urine Nitrite (Negative) Urine Bilirubin (Negative) Urine Urobilinogen (<2.0) mg/dL Ur Leukocyte Esterase (Negative) Urine RBC (0-5) /hpf Urine WBC (0-5) /hpf Urine Mucus (None) /hpf Disposition Is patient prescribed a controlled substance at d/c from ED?: No Time of Disposition: 07:49 Decision to Admit Reason: Admit from EC Decision Date: 04/07/24 Decision Time: 07:49 <Obdulia Briceño - Last Filed: 04/07/24 08:16> <Meri Springer - Last Filed: 04/09/24 03:43> Clinical Impression: Vertebral compression fracture, Mechanical back pain, Abdominal pain, Nausea and vomiting, Multiple falls Disposition: ADMITTED IP TO THIS HOSP Condition: Stable
[2024-04-07] MEDS: MORPHINE SULFATE 2 MG/ML SYRINGE IVP ONE (04:19)
[2024-04-07 04:42] LABS: Appearance,Urine Clear (Clear); Bilirubin,Urine Negative (Negative); Blood,Urine Negative (Negative); Color,Urine Colorless; Glucose,Urine (UA) Negative (Negative); Ketones,Urine 1+ (Negative); Leukocyte Esterase,Urine Moderate (Negative); Mucus,Urine Rare /hpf; Nitrite,Urine Negative (Negative); Protein,Urine Trace (Negative); RBC,Urine 1 /hpf (0-5); Specific Gravity,Urine 1.023 (1.001-1.035); Urobilinogen,Urine <2.0 mg/dL (<2.0); WBC,Urine 3 /hpf (0-5)
[2024-04-07 04:43] LABS: Basophils % (A) 0 %; Eosinophils # (A) 0.1 k/uL (0-0.7); Eosinophils % (A) 1 %; HCT 37.1 % (34.0-46.0); HGB 12.3 gm/dL (11.4-16.0); Lymphocytes # (A) 1.1 k/uL (1.0-4.8); Lymphocytes % (A) 17 %; MCH 33.4 pg (25.0-35.0); MCHC 33.1 g/dL (31.0-37.0); MCV 100.6 fL (80.0-100.0); Mean Platelet Volume 6.7; Monocytes # (A) 0.5 k/uL (0-1.0); Monocytes % (A) 8 %; Neutrophils # (A) 4.6 k/uL (1.3-7.7); Neutrophils % (A) 71 %; Platelet Count 356 k/uL (150-450); RBC 3.68 m/uL (3.80-5.40); RDW 13.5 % (11.5-15.5); WBC 6.5 k/uL (3.8-10.6)
[2024-04-07 05:06] LABS: ALT 18 U/L (4-34); AST 33 U/L (14-36); African American GFR (CKD) 75 (>60 ml/min/1.73 sqM); Albumin 4.2 g/dL (3.5-5.0); Alkaline Phosphatase 122 U/L (38-126); Amylase 47 U/L (30-110); Anion Gap 11 mmol/L; Blood Urea Nitrogen 26 mg/dL (7-17); Calcium 10.7 mg/dL (8.4-10.2); Carbon Dioxide 22 mmol/L (22-30); Chloride 101 mmol/L (98-107); Glucose 109 mg/dL (74-99); Lipase 43 U/L (23-300); Non-African American GFR(CKD) 65 (>60 ml/min/1.73 sqM); Potassium 4.4 mmol/L (3.5-5.1); Sodium 134 mmol/L (137-145); Total Bilirubin 0.9 mg/dL (0.2-1.3); Total Protein 7.9 g/dL (6.3-8.2)
[2024-04-07] MEDS: MORPHINE SULFATE 4 MG/ML SYRINGE IVP STA (06:45)
--- NOTE | 2024-04-07 06:56 | CT ---
EXAMINATION TYPE: CT abdomen pelvis w con DATE OF EXAM: 04/07/2024 COMPARISON: CLINICAL INDICATION: Female, 83 years old with history of abd/back pain; [facility], TECHNIQUE: None multiple axial images through the abdomen and pelvis following IV contrast administration.. Auto mated exposure control for dose reduction was used. FINDINGS: Mild chronic interstitial changes and/or atelectasis in the right lung base. There is a large hiatal hernia. The gallbladder is distended but there is no gallstone, wall thickening or pericholecystic fluid. The re is no biliary ductal dilatation. There are 2 small hypodensities in the left lobe of liver most likely representing simple cysts. Panc reas is markedly atrophic but there is no pancreatic mass. There is no splenomegaly or adrenal mass. There is mild left adrenal nodularity. There is no solid renal mass or hydronephrosis and there is homogeneous contrast enhancement of the r enal parenchyma. The caliber the abdominal aorta is normal is no retroperitoneal adenopathy or hemorr xavi. The bowel loops are normal in caliber and there is no evidence of dilatation or obstruction. No infla mmatory changes are identified in the bowel wall or mesentery. There is a large amount of stool withi n the colon and rectum. There is no free intraperitoneal air or fluid. No pelvic mass, free fluid, abscess or adenopathy. There is a [id number] compression fracture T12. There is no significant retropulsion There has been vertebral plasty at T8, T10 and T11 IMPRESSION: 1. Prominent gallbladder without gallstones, wall thickening or pericholecystic fluid. 2. Mild interstitial changes or atelectasis in the right lung base. 3. Large hiatal hernia. 4. Mild to moderate compression fracture T12. Vertebroplasty of T8, T10 and T11. 5. large amount stool within the colon and rectum. [facility], , 04/07/2024 6:54 AM
[2024-04-07] MEDS ORDERED: NALOXONE 0.4 MG/ML 1 ML VIAL IV PRN (07:49)
[2024-04-07] MEDS: MORPHINE SULFATE 4 MG/ML SYRINGE IV PRN (10:59)
--- NOTE | 2024-04-07 14:10 | XR ---
EXAMINATION TYPE: XR chest 1V portable DATE OF EXAM: 04/07/2024 2:02 PM COMPARISON: Same day CT abdomen/pelvis study. CLINICAL INDICATION: Female, 83 years old with history of pneumonia; [facility] TECHNIQUE: XR chest 1V portable Frontal view of the chest. FINDINGS: Cardiac Silhouette borderline mildly prominent. Prominence of the interstitial markings bilaterally and lower lobe predominant atelectasis with trace effusions. No pneumothorax. Previous vertebral augmentation procedure involving multiple thoracic spine vertebral bodies. IMPRESSION: 1. Trace bilateral pleural effusions and mild lower lobe atelectasis. 2. Prominence of the interstitial markings bilaterally which could reflect sequelae of chronic inter stitial lung disease or COPD. [facility], , 04/07/2024 2:07 PM
[2024-04-07] MEDS: LOSARTAN 50 MG TAB PO SCH (14:38)
[2024-04-07] MEDS: PARoxetine 20 MG TAB PO SCH (14:46)
[2024-04-07] MEDS: HYDROmorphone 0.5 MG/0.5 ML SYRINGE IVP PRN (15:44)
[2024-04-07 16:42] LABS: Influenza A Not Detected (Not Detectd); Influenza B Not Detected (Not Detectd); RSV Not Detected (Not Detectd)
[2024-04-07] MEDS: SUCRALFATE 1 GM TAB PO SCH (16:57)
[2024-04-07] MEDS ORDERED: SUCRALFATE 1 GM TAB PO SCH (17:30)
--- NOTE | 2024-04-07 17:41 | P.CNOR ---
History of Present Illness - HPI Consult date: 04/07/24 Consult reason: back pain History of present illness: Patient presented to the ED with complaints of stomach pain as well as low back pain. Speaking with the daughter at bedside she has had several falls over the past few days and most recently she fell in the middle of the night when she was unable to be supervised with ambulation. She landed onto her backside and she had new onset of mid back pain. Patient and daughter deny any numbness or tingling to the lower extremities they deny any bowel or bladder incontinence as well as any anesthesia to the perianal region. Most recently her biggest issue has been ongoing and worsening stomach pain that she is currently being evaluated for by Dr. Morocho with known history of gastric ulcers as well as hiatal hernia. She is planned for a diagnostic scope for Tuesday to further evaluate these conditions. Overall at this time her back pain is relatively minor compared to the pain she is having with her stomach. Of note patient recently underwent vertebral augmentation procedure earlier this month and speaking with the patient and daughter her back pain was significantly improving after this procedure. Review of Systems Constitutional: Denies chills, Denies fever Gastrointestinal: Reports abdominal pain, Reports dyspepsia Musculoskeletal: Reports as per HPI, Denies leg numbness/tingling Neurological: Reports balance difficulties, Reports weakness Past Medical History Past Medical History: Cancer, GERD/Reflux Additional Past Medical History / Comment(s): diverticulitis, left breast cancer History of Any Multi-Drug Resistant Organisms: None Reported Past Surgical History: Appendectomy, Breast Surgery, Orthopedic Surgery, Tonsillectomy Additional Past Surgical History / Comment(s): left breast biopsy, left shoulder rotator cuff, back sx, abd pain Past Anesthesia/Blood Transfusion Reactions: No Reported Reaction Past Psychological History: Anxiety Smoking Status: Former smoker Past Alcohol Use History: Rare Additional Past Alcohol Use History / Comment(s): started smoking age 15 has smoked on and off, smokes 3/4 PPD Past Drug Use History: None Reported - Past Family History Sister(s) Family Medical History: Cancer Brother(s) Family Medical History: Cancer Medications and Allergies Home Medications Medication Instructions Recorded Confirmed Type Losartan [Cozaar] 50 mg PO DAILY 03/19/24 04/07/24 History PARoxetine [Paxil] 20 mg PO DAILY 03/19/24 04/07/24 History Acetaminophen Tab [Tylenol Tab] 500 mg PO Q6H PRN 04/07/24 04/07/24 History Pantoprazole [Protonix] 40 mg PO DAILY 04/07/24 04/07/24 History Sucralfate [Carafate] 1 gm PO ACHS 04/07/24 04/07/24 History oxyCODONE-APAP 5-325MG [Percocet 1 tab PO Q6HR PRN 04/07/24 04/07/24 History 5-325 mg] Allergies Allergy/AdvReac Type Severity Reaction Status Date / Time No Known Allergies Allergy Verified 04/07/24 08:26 Physical Examination Back and lower extremity exam Patient has well appearing surgical sites at her previous area of vertebral augmentation She has tenderness to palpation at the thoracolumbar junction Patient has intact sensation to light touch throughout the bilateral lower extremities Patient has 55 strength to ankle plantar and dorsiflexion 55 strength to knee flexion and extension Hip strength is deferred due to pain in the abdomen at this time Results Results of her abdominal and pelvic CT show evidence of a new moderate compression fracture at T12 immediately adjacent to her previous vertebral augmentation sites when compared to intraoperative images taken earlier this month - Labs Labs: Abnormal Lab Results - Last 24 Hours (Table) 04/07/24 04/07/24 04/07/24 Range/Units 04:10 04:18 04:18 RBC 3.68 L (3.80-5.40) m/uL MCV 100.6 H (80.0-100.0) fL Sodium 134 L (137-145) mmol/L BUN 26 H (7-17) mg/dL Glucose 109 H (74-99) mg/dL Calcium 10.7 H (8.4-10.2) mg/dL Urine Protein Trace H (Negative) Urine Ketones 1+ H (Negative) Ur Leukocyte Esterase Moderate H (Negative) Urine Mucus Rare H (None) /hpf H & H 04/07/24 Range/Units 04:18 Hgb 12.3 (11.4-16.0) gm/dL Hct 37.1 (34.0-46.0) % Result Diagrams: 04/07/24 04:18 04/07/24 04:18 Assessment and Plan Assessment: New compression fracture of the T12 vertebrae Plan: At this time patient's pain related to her new compression fracture is overall controlled Currently her biggest area of concern is her ongoing abdominal pain for which she is scheduled to undergo a procedure on Tuesday From an orthopedic standpoint patient can continue to be weightbearing as tolerated Discussed that she does have a brace that was provided previously with her earlier vertebral compression fractures however her use of this has been limited due to her ongoing abdominal pain, discussed with the daughter that if she can tolerate it and her back pain is an issue they can continue to wear the brace if she can tolerate it I will let Dr. Franks's team know that she is currently admitted to the hospital as well as alert them to her new injury for further discussion about any potential interventions in the future
--- NOTE | 2024-04-07 21:32 | P.CON ---
Consult Note - . Consult date: 04/07/24 Assessment/Plan:: 83-year-old female presented to the emergency department for evaluation of "pain all over."Patient reports that she has been experiencing pain since December. She notes that recently she was hospitalized for back pain and had a procedure performed on her back. She states that the pain has continued to worsen. Patient also states that she has been experiencing abdominal pain mostly in the epigastric region. Patient feels that so severe that it caused her to fall earlier today. She had a CT-AP which showed a moderate sized hiatal hernia, a dilated gallbladder, and constipation. She has associated nausea and GERD. Review of Systems ROS Other: All systems not noted in ROS Statement are negative. <Meri Springer - Last Filed: 04/07/24 04:04> ROS Other: All systems not noted in ROS Statement are negative. <Obdulia Briceño - Last Filed: 04/07/24 08:16> ROS Statement: Those systems with pertinent positive or pertinent negative responses have been documented in the HPI. Past Medical History Past Medical History: Cancer, GERD/Reflux Additional Past Medical History / Comment(s): diverticulitis, left breast cancer History of Any Multi-Drug Resistant Organisms: None Reported Past Surgical History: Appendectomy, Breast Surgery, Orthopedic Surgery, Tonsillectomy Additional Past Surgical History / Comment(s): left breast biopsy, left shoulder rotator cuff Past Anesthesia/Blood Transfusion Reactions: No Reported Reaction Past Psychological History: Anxiety Smoking Status: Former smoker Past Alcohol Use History: Rare Past Drug Use History: None Reported - Past Family History Sister(s) Family Medical History: Cancer Brother(s) Family Medical History: Cancer <Meri Springer - Last Filed: 04/07/24 04:04> General Exam Limitations: no limitations General appearance: alert, in no apparent distress Head exam: Present: atraumatic, normocephalic, normal inspection Eye exam: Present: normal appearance, PERRL, EOMI. Absent: scleral icterus, conjunctival injection, periorbital swelling ENT exam: Present: normal exam, mucous membranes moist Neck exam: Present: normal inspection. Absent: tenderness, meningismus, lymphadenopathy Respiratory exam: Present: normal lung sounds bilaterally. Absent: respiratory distress, wheezes, rales, rhonchi, stridor Cardiovascular Exam: Present: regular rate, normal rhythm, normal heart sounds. Absent: systolic murmur, diastolic murmur, rubs, gallop, clicks GI/Abdominal exam: Present: soft. Absent: distended, tenderness, guarding, rebound, rigid Extremities exam: Present: normal inspection, full ROM, normal capillary refill. Absent: tenderness, pedal edema, joint swelling, calf tenderness Back exam: Present: tenderness (Low lumbar) Neurological exam: Present: alert, oriented X3 Psychiatric exam: Present: normal affect, normal mood Skin exam: Present: warm, dry, intact, normal color. Absent: rash 83 year old female with severe epigastric pain and nausea concerning for Gastric Ulcer. CT-AP shows evidence of a moderate sized hiatal hernia, dilated gallbladder, and constipation -Will plan for EGD Tuesday to evaluate for ulcer and hiatal hernia -Protonix 40 mg BID and Carafate for possible ulcer treatment -Miralax and Colace for constipation -Pain and Nausea control Isrrael Pichardo [facility] [phone]
[2024-04-07] MEDS: HEPARIN SODIUM,PORCINE 5,000 UNIT/ML 1 ML VIAL SQ SCH (22:33)
[2024-04-07] MEDS: PANTOPRAZOLE 40 MG TABLET PO SCH (22:34)
--- NOTE | 2024-04-07 23:51 | HP ---
HISTORY AND PHYSICAL CHIEF COMPLAINT: Abdominal pain, back pain, as well as fall. HISTORY OF PRESENT ILLNESS: This is an 83-year-old woman with a past medical history of multiple medical problems, was complaining of multiple falls and the patient is complaining of back pain and pain all over. The CAT scan showed hiatal hernia as well as chololithiasis. There is no history of any fever, rigors, or chills at this time. The possibility of pneumonia also suspects on the right side. PAST MEDICAL HISTORY: Reviewed includes GERD, diverticulitis, left breast cancer, anxiety. Rest of the history and rest of the chart also reviewed. HOME MEDICATIONS: Reviewed. Oxycodone. Doses and rest of medications reviewed. ALLERGIES: None. FAMILY HISTORY: History of cancer. SOCIAL HISTORY: Previous smoker. REVIEW OF SYSTEMS: Fourteen-point review of systems is negative except as mentioned earlier. PHYSICAL EXAMINATION: VITAL SIGNS: Pulse is 82, blood pressure 170/90, respirations 18. HEENT: Conjunctivae normal. NECK: No JVD. CARDIOVASCULAR: S1, S2. RESPIRATIONS: Breath sounds diminished at the bases. A few scattered rhonchi. ABDOMEN: Soft. Mild diffuse discomfort. No guarding. No rigidity. No masses palpable. LEGS: No edema. NERVOUS SYSTEM: Nonfocal. LABORATORY DATA: Sodium 134. Rest of the labs are noted. ASSESSMENT: 1. Fall and T12 compression fracture. 2. History of vertebroplasty, T8, T10, T11. 3. Cholelithiasis without any evidence of any cholecystitis. 4. History of multiple falls as well as gait dysfunction. 5. Hiatal hernia. 6. Diverticulitis history. 7. History of gastroesophageal reflux disease. 8. Anxiety. 9. Multiple medical issues. RECOMMENDATIONS AND DISCUSSION: This is an 83-year-old woman presented with multiple complex medical issues, we will monitor the patient closely. I would recommend symptomatic treatment for the pain, orthopedic evaluation. I would also recommend surgical evaluation for the cholelithiasis. Otherwise, COVID-19 testing and I would also recommend repeat chest x- ray and serum procalcitonin. White count is normal. If the procalcitonin comes back high, I would recommend a short course of antibiotics also. We will continue to monitor. Guarded prognosis. Further recommendations to follow. See orders for further details. MMODL / IJN: [id number] /
[2024-04-08] MEDS: oxyCODONE-APAP 5-325MG 1 EACH TAB PO PRN (02:23)
[2024-04-08] MEDS ORDERED: PANTOPRAZOLE 40 MG TABLET PO SCH (07:30)
[2024-04-08] MEDS: polyethylene glycoL 3350 17 GM POWD.PACK PO SCH (08:26)
[2024-04-08 09:33] LABS: Basophils # (A) 0.03 X 10*3/uL (0.00-0.10); Basophils % (A) 0.6 %; Eosinophils # (A) 0.05 X 10*3/uL (0.04-0.35); HCT 33.9 % (37.2-46.3); HGB 11.2 g/dL (12.0-15.0); Lymphocytes # (A) 1.22 X 10*3/uL (0.90-5.00); Lymphocytes % (A) 25.3 %; MCH 33.2 pg (27.0-32.0); MCV 100.6 FL (80.0-97.0); Mean Platelet Volume 9.2 FL (9.5-12.2); Monocytes % (A) 12.4 %; NRBC Per 100 WBC 0 X 10*3/uL (0.00-0.01); Neutrophils # (A) 2.92 X 10*3/uL (1.80-7.70); Neutrophils % (A) 60.5 %; Platelet Count 301 X 10*3/uL (140-440); RBC 3.37 X 10*6/uL (4.10-5.20); WBC 4.83 X 10*3/uL (4.50-10.00)
[2024-04-08 09:47] LABS: BUN/Creat Ratio 27.67 Ratio (12.00-20.00); Blood Urea Nitrogen 16.6 mg/dL (9.0-27.0); Calcium 9.8 mg/dL (8.7-10.3); Carbon Dioxide 22.2 mmol/L (21.6-31.8); Chloride 100 mmol/L (96-109); Glucose 106 mg/dL (70-110); Potassium 3.9 mmol/L (3.5-5.5); Sodium 132 mmol/L (135-145)
--- NOTE | 2024-04-08 10:06 | P.PN ---
Progress Note - Text Progress Note Date: 04/08/24 Patient seen and examined. Patient is confused this morning. General appearance: alert, in no apparent distress Head exam: Present: atraumatic, normocephalic, normal inspection Eye exam: Present: normal appearance, PERRL, EOMI. Absent: scleral icterus, conjunctival injection, periorbital swelling ENT exam: Present: normal exam, mucous membranes moist Neck exam: Present: normal inspection. Absent: tenderness, meningismus, lymphadenopathy Respiratory exam: Present: normal lung sounds bilaterally. Absent: respiratory distress, wheezes, rales, rhonchi, stridor Cardiovascular Exam: Present: regular rate, normal rhythm, normal heart sounds. Absent: systolic murmur, diastolic murmur, rubs, gallop, clicks GI/Abdominal exam: Present: soft. Absent: distended, tenderness, guarding, rebound, rigid Extremities exam: Present: normal inspection, full ROM, normal capillary refill. Absent: tenderness, pedal edema, joint swelling, calf tenderness Back exam: Present: tenderness (Low lumbar) Neurological exam: Present: alert, oriented X3 Psychiatric exam: Present: normal affect, normal mood Skin exam: Present: warm, dry, intact, normal color. Absent: rash 83 year old female with severe epigastric pain and nausea concerning for Gastric Ulcer. CT-AP shows evidence of a moderate sized hiatal hernia, dilated gallbladder, and constipation -Will plan for EGD tomorrow to evaluate for ulcer and hiatal hernia -NPO/midnight -Protonix 40 mg BID and Carafate for possible ulcer treatment -Miralax and Colace for constipation -Pain and Nausea control Isrrael Pichardo DO [facility] [phone]
[2024-04-08] MEDS: MORPHINE SULFATE 4 MG/ML SYRINGE IVP PRN (13:08)
[2024-04-08] MEDS: SODIUM CHLORIDE 0.9% 1,000 ML IV SCH (13:08)
--- NOTE | 2024-04-08 13:33 | XR ---
EXAMINATION TYPE: XR chest 1V portable DATE OF EXAM: 04/08/2024 COMPARISON: 04/07/2024 CLINICAL INDICATION: Female, 83 years old with history of chf; TECHNIQUE: Single frontal view of the chest is obtained. FINDINGS: There is no change in the diffuse interstitial prominence and mild cardiomegaly. There is no airspace consolidation. There is no large pleural effusion or pneumothorax. There is been vertebroplasty at multiple lower th oracic vertebral segments. IMPRESSION: Findings consistent with the history of CHF, essentially unchanged compared to the prior study. [facility], , 04/08/2024 1:31 PM
[2024-04-08] MEDS: hydrALAZINE HCL 20 MG/ML 1 ML VIAL IVP PRN (14:40)
[2024-04-08] MEDS: ONDANSETRON 4 MG/2 ML VIAL IVP PRN (17:22)
--- NOTE | 2024-04-09 07:12 | PN ---
PROGRESS NOTE DATE OF SERVICE: 04/08/2024 SUBJECTIVE: This 83-year-old woman was admitted with fall and back pain, had T12 vertebral fracture. The patient also complaining of abdominal discomfort, diffuse pain. The patient is also confused. At this time, Surgery is following the patient for possible EGD. The CT scan also showed multiple abnormalities including cholelithiasis and hiatal hernia. PAST MEDICAL HISTORY: Reviewed. REVIEW OF SYSTEMS: The patient is mildly confused. CURRENT MEDICATIONS: Reviewed. PHYSICAL EXAMINATION: VITAL SIGNS: Pulse is 85, blood pressure 175/92, respirations ntd. CHEST: Few scattered rhonchi. ABDOMEN: Soft. NERVOUS SYSTEM: Nonfocal LABORATORY DATA: Sodium 132, rest of the labs are noted. ASSESSMENT: 1. Fall and T12 compression fracture. 2. Abdominal pain for evaluation, rule out peptic ulcer disease per Surgery. 3. History of vertebroplasty, T10, T8, T11. 4. Cholelithiasis without any evidence of any cholecystitis. 5. Gait dysfunction. 6. Hiatal hernia. 7. Diverticulitis. 8. History of gastroesophageal reflux disease. 9. Anxiety. 10.Multiple medical issues. RECOMMENDATIONS AND DISCUSSION: Recommend to continue current medications, continue symptomatic treatment. Otherwise, at this time, I recommend pain management with morphine. DVT prophylaxis. Cautious IV fluids. We will monitor the patient closely. I would also recommend full cardiac workup also with troponin, BNP, and 2D echo also. See orders for further details. Further recommendations to follow closely . MMSUNSHINEL / VASUN: [id number] / MTDD
[2024-04-09 08:48] LABS: BUN/Creat Ratio 24.43 Ratio (12.00-20.00); Blood Urea Nitrogen 17.1 mg/dL (9.0-27.0); Calcium 10.1 mg/dL (8.7-10.3); Carbon Dioxide 21.5 mmol/L (21.6-31.8); Chloride 101 mmol/L (96-109); Glucose 101 mg/dL (70-110); Sodium 134 mmol/L (135-145)
[2024-04-09 09:58] LABS: Basophils # (A) 0.03 X 10*3/uL (0.00-0.10); Basophils % (A) 0.6 %; Eosinophils # (A) 0.04 X 10*3/uL (0.04-0.35); Eosinophils % (A) 0.7 %; HCT 35.5 % (37.2-46.3); HGB 11.5 g/dL (12.0-15.0); Lymphocytes # (A) 1.73 X 10*3/uL (0.90-5.00); Lymphocytes % (A) 32.2 %; MCH 32.4 pg (27.0-32.0); MCHC 32.4 g/dL (32.0-37.0); Mean Platelet Volume 9.3 FL (9.5-12.2); NRBC Per 100 WBC 0 X 10*3/uL (0.00-0.01); Neutrophils # (A) 2.85 X 10*3/uL (1.80-7.70); Neutrophils % (A) 53.1 %; Platelet Count 353 X 10*3/uL (140-440); RBC 3.55 X 10*6/uL (4.10-5.20); WBC 5.37 X 10*3/uL (4.50-10.00)
[2024-04-09] MEDS ORDERED: LIDOCAINE 1% INJ 10MG/ML (20 ML MDV) ONE (10:44)
[2024-04-09] MEDS: IV FLUID CONTINUATION 1,000 ML IV ONE (10:44)
[2024-04-09] MEDS ORDERED: PROPOFOL 10 MG/ML 20 ML VIAL IV ONE (10:44)
--- NOTE | 2024-04-09 10:59 | P.PCN ---
Date of Procedure: 04/09/24 Preoperative Diagnosis: Epigastric pain Large hiatal hernia GERD Postoperative Diagnosis: Large hiatal hernia Duodenitis Procedure(s) Performed: EGD with biopsy Anesthesia: MAC Surgeon: Johann Romero Pathology: other (Biopsies of antrum, duodenum, GE junction) Condition: stable Disposition: floor Indications for Procedure: 83-year-old female presented with complaint of abdominal pain, notably in the epigastrium. She was found to have a large hiatal hernia. Plan for upper endoscopy for further evaluation. Risks, benefits and alternatives were provided to the patient and the patient's son with consent provided. Operative Findings: Large hiatal hernia Duodenitis Description of Procedure: The patient was brought into the endoscopy suite and placed in left lateral decubitus position. Adequate sedation was achieved using conscious sedation. A bite-block was placed and an endoscope was placed in the oropharynx and advanced under endoscopic visualization. The endoscope was advanced through the esophagus into the stomach, through the gastric antrum and in through the pylorus. The third portion of duodenum was visualized. The endoscope was then slowly withdrawn. The first portion of duodenum was noted to have mild inflammatory changes. Biopsies were taken. The antrum was noted to have mild inflammatory changes. Biopsies were taken. The gastric body distended normally and the gastric folds appeared normal and flattened with insufflation. A retroflexed view of the fundus and GE junction revealed large hiatal hernia without any ulceration or ischemic changes. GE junction appeared normal without any esophagitis and biopsies were taken. The esophagus appeared endoscopically normal. Excess air was removed and the scope was withdrawn and the procedure was completed. The patient was sent to PACU in stable condition.
--- NOTE | 2024-04-09 12:43 | P.PN ---
Progress Note - Text Progress Note Date: 04/09/24 Patient is seen and examined at bedside. She is companied by her daughter. She is Up to the floor from her upper GI scope. The patient's been having severe pain at her upper abdomen centrally with burning and radiating pain across her abdomen and toward her breasts bilaterally. She had had a fall few days ago. She had a kyphoplasty at T8 T10 and T11 a few weeks ago and had done well with that. She is not having significant pain at her back. She is not having changes of her lower extremities. She is not having any neurologic extremity loss or change. The patient did not have any neurologic change after her kyphoplasty's at T8 T10 and T11 recently. Her imaging was reviewed. It shows the CT scan with kyphoplasty of T8 T10-T11. There is new compression deformity at T12 with about 20% height loss inferiorly. There is no retropulsion or extension posteriorly. Her lower extremities have full active and passive range of motion. Her abdomen soft. She is warm. She is not having tenderness to palpation in her back. Assessment and plan Upper abdominal pain with history of hernia New T12 compression fracture status post fall without apparent neurologic loss Several weeks status post kyphoplasty T8 T10-T11 for osteoporotic compression fractures which had been doing adequately and improving steadily Is difficult to determine the patient's source of her symptoms at her abdomen and lower chest. We are awaiting results from her GI scope. They are considering possible fu rther intervention for her hernia. It is difficult to attribute all of her symptoms to the hernia. With the new fracture of T12 I think is worthwhile to obtain further imaging of her thoracic spine. Will order an MRI of her thoracic spine to see if there is any specific compression or other neurologic issue that we may see. I think it is okay for the patient to mobilize and try to sit up in bed as she is able. She can continue workup and treatment for her abdominal issues as appropriate. We will continue to follow along with you.
--- NOTE | 2024-04-09 12:59 | P.CRDCN ---
History of Present Illness History of present illness: HISTORY OF PRESENTING ILLNESS This is a pleasant 83-year-old female past medical history significant for mild aortic stenosis and dyslipidemia. She follows in the office with Dr. Pace. We have been asked to see in consultation for heart failure. She is seen and examined resting comfortably laying completely flat in bed. She had an EGD this morning and is still quite lethargic from the anesthesia. She does open her eyes but falls asleep rather quickly. We have been asked to see her for heart failure based on chest x-ray. She presented to the hospital with abdominal and back pain. EGD today revealed duodenitis and a large hiatal hernia. DIAGNOSTICS EKG reveals sinus rhythm. Chest xray bilateral pleural effusions. Laboratory reviewed, hemoglobin 11.5, platelets 353, sodium 134, potassium 4, creatinine 0.7. No NT proBNP was drawn. Current cardiac medications include losartan 50 mg daily. Most recent echocardiogram obtained in the office January 2023 revealed preserved LV systolic function with ejection fraction 50 to 55%, mildly calcified aortic leaflets with no regurgitation and mild stenosis mean gradient of 4, trace to mild MR and mild TR with an RVSP of 16 REVIEW OF SYSTEMS At the time of my exam: Unable to obtain accurate review of systems secondary to lethargy status post EGD PHYSICAL EXAMINATION Blood pressure 154/74 heart rate 83 afebrile and maintaining oxygen saturation on nasal cannula. CONSTITUTIONAL: No apparent distress. HEENT: Head is normocephalic. Pupils are equal, round. Sclerae anicteric. Mucous membranes of the mouth are moist. No JVD. No carotid bruit. CHEST EXAMINATION: Lungs are clear to auscultation. No chest wall tenderness is noted on palpation or with deep breathing. HEART EXAMINATION: Regular rate and rhythm. S1, S2 heard. Soft systolic ejection murmur at the base, no gallops or rub. ABDOMEN: Soft, nontender. EXTREMITIES: 2+ peripheral pulses, no lower extremity edema and no calf tenderness. ASSESSMENT Fall with back pain and vertebral fracture Abdominal pain status post EGD Hypertension PLAN Check NT proBNP. Echocardiogram ordered and taken this morning, results pending. Patient appears in no acute distress and does not appear to be in heart failure or if any issues with breathing at this time. Thank you kindly for this consultation. Nurse Practitioner note has been reviewed, I agree with a documented findings and plan of care. Patient was seen and examined. Past Medical History Past Medical History: Cancer, GERD/Reflux Additional Past Medical History / Comment(s): diverticulitis, left breast cancer History of Any Multi-Drug Resistant Organisms: None Reported Past Surgical History: Appendectomy, Breast Surgery, Orthopedic Surgery, Tonsillectomy Additional Past Surgical History / Comment(s): left breast biopsy, left shoulder rotator cuff Past Anesthesia/Blood Transfusion Reactions: No Reported Reaction Past Psychological History: Anxiety Smoking Status: Former smoker Past Alcohol Use History: Rare Past Drug Use History: None Reported - Past Family History Sister(s) Family Medical History: Cancer Brother(s) Family Medical History: Cancer Medications and Allergies Home Medications Medication Instructions Recorded Confirmed Type Losartan [Cozaar] 50 mg PO DAILY 03/19/24 04/07/24 History PARoxetine [Paxil] 20 mg PO DAILY 03/19/24 04/07/24 History Acetaminophen Tab [Tylenol Tab] 500 mg PO Q6H PRN 04/07/24 04/07/24 History Pantoprazole [Protonix] 40 mg PO DAILY 04/07/24 04/07/24 History Sucralfate [Carafate] 1 gm PO ACHS 04/07/24 04/07/24 History oxyCODONE-APAP 5-325MG [Percocet 1 tab PO Q6HR PRN 04/07/24 04/07/24 History 5-325 mg] Allergies Allergy/AdvReac Type Severity Reaction Status Date / Time No Known Allergies Allergy Verified 04/07/24 08:26 Physical Exam Vitals: Vital Signs Temp Pulse Resp BP Pulse Ox 04/09/24 11:13 97.9 F 83 19 154/74 95 04/09/24 07:48 99 04/09/24 07:07 98.4 F 99 22 173/97 94 L 04/09/24 01:43 98.2 F 105 H 16 139/77 93 L 04/08/24 20:20 98.0 F 107 H 15 140/87 96 04/08/24 16:05 102 H 165/93 96 04/08/24 14:27 98.5 F 95 18 199/84 94 L Intake and Output 04/08/24 04/09/24 04/09/24 22:59 06:59 14:59 Intake Total 350 0 100 Balance 350 0 100 Intake: IV 100 Oral 350 0 Other: Voiding Method Bedside Commode # Voids 0 0 1 Results 04/09/24 03:50 04/09/24 03:50 CBC 04/09/24 Range/Units 03:50 WBC 5.37 (4.50-10.00) X 10*3/uL RBC 3.55 L (4.10-5.20) X 10*6/uL Hgb 11.5 L (12.0-15.0) g/dL Hct 35.5 L (37.2-46.3) % Plt Count 353 (140-440) X 10*3/uL Comprehensive Metabolic Panel 04/09/24 Range/Units 03:50 Sodium 134 L (135-145) mmol/L Potassium 4.0 (3.5-5.5) mmol/L Chloride 101 (96-109) mmol/L Carbon Dioxide 21.5 L (21.6-31.8) mmol/L BUN 17.1 (9.0-27.0) mg/dL Creatinine 0.7 (0.6-1.5) mg/dL Glucose 101 (70-110) mg/dL Calcium 10.1 (8.7-10.3) mg/dL Current Medications Generic Name Dose Route Start Last Admin Trade Name Freq PRN Reason Stop Dose Admin Docusate Sodium 100 mg 04/07/24 21:27 Docusate 100 Mg Cap PO DAILY PRN Constipation Heparin Sodium (Porcine) 5,000 unit 04/07/24 21:00 04/09/24 07:39 Heparin Sodium,Porcine 5,000 Unit/Ml 1 Ml Vial SQ Not Given Q12HR DERRICK Hydralazine HCl 10 mg 04/08/24 05:21 04/08/24 14:40 Hydralazine Hcl 20 Mg/Ml 1 Ml Vial IVP 10 mg Q6HR PRN Administration Blood Pressure - High Sodium Chloride 1,000 mls @ 50 mls/hr 04/08/24 13:00 04/09/24 07:50 Saline 0.9% IV 50 mls/hr .Q20H DERRICK Administration Losartan Potassium 50 mg 04/07/24 13:30 04/09/24 07:59 Losartan 50 Mg Tab PO 50 mg DAILY DERRICK Administration Morphine Sulfate 4 mg 04/08/24 12:57 04/09/24 07:48 Morphine Sulfate 4 Mg/Ml Syringe IVP 4 mg Q4HR PRN Administration Pain Naloxone HCl 0.2 mg 04/07/24 07:49 Naloxone 0.4 Mg/Ml 1 Ml Vial IV Q2M PRN Opioid Reversal Ondansetron HCl 4 mg 04/07/24 07:52 04/08/24 17:22 Ondansetron 4 Mg/2 Ml Vial IVP 4 mg Q8HR PRN Administration Nausea Oxycodone/Acetaminophen 1 each 04/07/24 13:20 04/08/24 02:23 Oxycodone-Apap 5-325mg 1 Each Tab PO 1 each Q6HR PRN Administration Pain Scale 1 to 6 Pantoprazole Sodium 40 mg 04/07/24 21:00 04/09/24 08:00 Pantoprazole 40 Mg Tablet PO 40 mg BID DERRICK Administration Paroxetine HCl 20 mg 04/07/24 14:45 04/09/24 08:00 Paroxetine 20 Mg Tab PO 20 mg DAILY DERRICK Administration Polyethylene Glycol 17 gm 04/08/24 09:00 04/09/24 07:27 Polyethylene Glycol 3350 17 Gm Powd.Pack PO Not Given DAILY DERRICK Sucralfate 1 gm 04/07/24 18:00 04/09/24 08:00 Sucralfate 1 Gm Tab PO 1 gm QID DERRICK Administration Intake and Output 04/08/24 04/09/24 04/09/24 22:59 06:59 14:59 Intake Total 350 0 100 Balance 350 0 100 Intake: IV 100 Oral 350 0 Other: Voiding Method Bedside Commode # Voids 0 0 1 04/09/24 03:50 04/09/24 03:50
--- NOTE | 2024-04-09 13:08 | CA ---
Transthoracic Echo Report Name: Deanna Nunez Age: 83 Gender: F : 1940 Exam Date: 04/09/2024 08:34 Exam Location: [place] Ht (in): 64 Wt (lb): 150 Ordering Physician: Zeke Rodarte MD Attending/Referring Phys: Medical Assistant Float Sarah Gallardo RDCS Procedure CPT: Indications: chf Cardiac Hx: Technical Quality: Fair Contrast 1: Total Dose (mL): Contrast 2: Total Dose (mL): MEASUREMENTS (Male / Female) Normal Values 2D ECHO LV Diastolic Diameter PLAX 3.9 cm 4.2 - 5.9 / 3.9 - 5.3 cm LV Systolic Diameter PLAX 2.7 cm IVS Diastolic Thickness 1.0 cm 0.6 - 1.0 / 0.6 - 0.9 cm LVPW Diastolic Thickness 1.0 cm 0.6 - 1.0 / 0.6 - 0.9 cm LV Relative Wall Thickness 0.5 RV Internal Dim ED PLAX 2.7 cm LVOT Diameter 1.5 cm Aortic Root Diameter 2.7 cm LA Systolic Diameter LX 3.1 cm 3.0 - 4.0 / 2.7 - 3.8 cm DOPPLER MV Peak Velocity 154.9 cm/s MV Peak Gradient 9.6 mmHg MV Mean Velocity 87.4 cm/s MV Mean Gradient 3.5 mmHg MV Velocity Time Integral 27.8 cm Mitral E Point Velocity 47.0 cm/s Mitral A Point Velocity 104.2 cm/s Mitral E to A Ratio 0.5 MV Deceleration Time 123.5 ms MV E' Velocity 7.9 cm/s Mitral E to MV E' Ratio 5.9 TR Peak Velocity 107.7 cm/s TR Peak Gradient 4.6 mmHg Right Atrial Pressure 5.0 mmHg Pulmonary Artery Systolic Pressu 9.6 mmHg Right Ventricular Systolic Press 9.6 mmHg FINDINGS Left Ventricle Left ventricular ejection fraction is estimated at 60-65 %. Mildly increased posterior wall thickness. No obvious regional wall motion abnormalities. Normal Left ventricular size, systolic function with no obvious regional wall motion abnormalities. Right Ventricle Normal right ventricular size and function. Right Atrium Right atrium not well visualized. Left Atrium Normal left atrial size. Mitral Valve Structurally normal mitral valve. Mild mitral stenosis. No mitral regurgitation. Aortic Valve Trileaflet aortic valve. No aortic regurgitation. No aortic stenosis. Aortic valve sclerosis. Tricuspid Valve Structurally normal tricuspid valve. No tricuspid stenosis. Trace regurgitation. Pulmonic Valve Pulmonic valve not well visualized. No pulmonic regurgitation. Pericardium No pericardial or pleural effusion. Aorta Normal size aortic root and proximal ascending aorta. CONCLUSIONS Normal LV size and systolic function. Mitral annular calcification and aortic valve sclerosis. No restriction of aortic valve leaflet motion. No pericardial effusion. No pulmonary hypertension Previewed by: Dr. Anirudh Trejo MD (Electronically Signed) Final Date: 09 April 2024 13:07
[2024-04-09 14:47] VITALS: BMI 25.7
--- NOTE | 2024-04-09 16:11 | US ---
EXAMINATION TYPE: US gallbladder DATE OF EXAM: 04/09/2024 COMPARISON: CT: 04/07/24 CLINICAL INDICATION: Female, 83 years old with history of abd pain; pain TECHNIQUE: Grayscale and color Doppler imaging of the right upper quadrant was performed. FINDINGS: EXAM MEASUREMENTS: Liver Length: 13.2 cm Gallbladder Wall: 0.17 cm CBD: 0.24 cm Right Kidney: 10.8 x 3.8 x 4.2 cm TRAINER NOTES:Limited due to body habitus Pancreas: wnl Liver: cystic area left lobe measuring 1.5 x 1.4 x 1.3cm. There appears to be mild to moderate fatty infiltration to the liver with heterogenous appearance. Gallbladder: appears enlarged, echogenic area seen measuring 1.7cm may be some sludge. Evidence for sonographic Roberto's sign: no CBD: wnl Right Kidney: wnl IMPRESSION: 1. Mild to moderate fatty infiltration liver. 2. Left lobe liver cyst. 3. Sludge within the gallbladder. [facility], , 04/09/2024 4:09 PM
--- NOTE | 2024-04-09 20:15 | PN ---
PROGRESS NOTE DATE OF SERVICE: 04/09/2024 SUBJECTIVE: This is an 83-year-old woman, who was admitted with fall and back pain, had T12 vertebral fracture. The patient is also complaining of abdominal pain. EGD showed only gastritis. The possibility of hiatal hernia causing the significant abdominal pain is concerned. The family is also concerning the possible surgery despite the patient's multiple medical issues. A 2D echo showed normal LV size. PAST MEDICAL HISTORY: Reviewed. REVIEW OF SYSTEMS: Fourteen-point review of systems is negative except as mentioned earlier. CURRENT MEDICATIONS: Reviewed. PHYSICAL EXAMINATION: VITAL SIGNS: Pulse 85, blood pressure 138/70, respirations 20. HEENT: Conjunctivae normal. NECK: No JVD. CARDIOVASCULAR: S1, S2. RESPIRATIONS: Breath sounds diminished at the bases. ABDOMEN: Soft. NERVOUS SYSTEM: Nonfocal. LABORATORY DATA: Hemoglobin 11.5. Rest of the labs are noted. ASSESSMENT: 1. Fall and T12 compression fracture. 2. Abdominal pain, possibly hiatal hernia. 3. Status post EGD showing only duodenitis and large hiatal hernia. 4. History of vertebroplasty, T10, T8, T11. 5. Cholelithiasis without any evidence of cholecystitis. 6. Gait dysfunction. 7. Hiatal hernia. 8. Diverticulitis. 9. History of gastroesophageal reflux disease. 10.Anxiety. 11.Multiple medical issues. RECOMMENDATIONS AND DISCUSSION: Recommend to continue current management and continue symptomatic treatment. Otherwise, at this time, I would recommend an ultrasound of the gallbladder also to complete the workup. Guarded prognosis. Further recommendations to follow. MMODL / IJN: [id number] /
[2024-04-10] MEDS: DOCUSATE 100 MG CAP PO PRN (08:37)
[2024-04-10 08:42] LABS: Basophils # (A) 0.02 X 10*3/uL (0.00-0.10); Basophils % (A) 0.3 %; Eosinophils # (A) 0.05 X 10*3/uL (0.04-0.35); Eosinophils % (A) 0.8 %; HCT 35.1 % (37.2-46.3); HGB 11.4 g/dL (12.0-15.0); Lymphocytes # (A) 1.27 X 10*3/uL (0.90-5.00); Lymphocytes % (A) 19.3 %; MCH 32.9 pg (27.0-32.0); MCHC 32.5 g/dL (32.0-37.0); MCV 101.2 FL (80.0-97.0); Mean Platelet Volume 9.1 FL (9.5-12.2); Monocytes # (A) 0.71 X 10*3/uL (0.20-1.00); Monocytes % (A) 10.8 %; NRBC Per 100 WBC 0 X 10*3/uL (0.00-0.01); Neutrophils % (A) 68.5 %; Platelet Count 298 X 10*3/uL (140-440); RBC 3.47 X 10*6/uL (4.10-5.20); WBC 6.57 X 10*3/uL (4.50-10.00)
[2024-04-10 12:01] LABS: ALT 15 U/L (8-44); AST 30 U/L (13-35); Albumin 3.8 g/dL (3.8-4.9); Albumin/Globulin Ratio 1.09 Ratio (1.60-3.17); Alkaline Phosphatase 99 U/L (41-126); BUN/Creat Ratio 19.71 Ratio (12.00-20.00); Blood Urea Nitrogen 13.8 mg/dL (9.0-27.0); Calcium 9.8 mg/dL (8.7-10.3); Carbon Dioxide 20.7 mmol/L (21.6-31.8); Chloride 101 mmol/L (96-109); Globulin 3.5 g/dL (1.6-3.3); Glucose 88 mg/dL (70-110); Potassium 3.5 mmol/L (3.5-5.5); Sodium 135 mmol/L (135-145); Total Bilirubin 0.6 mg/dL (0.3-1.2); Total Protein 7.3 g/dL (6.2-8.2)
[2024-04-10] MEDS: LORazepam 2 MG/ML INJ IV STA ×3 (12:48→15:38)
--- NOTE | 2024-04-10 15:26 | P.PN ---
Subjective Progress Note Date: 04/10/24 SURGICAL PROGRESS NOTE CHIEF COMPLAINT: Epigastric pain HISTORY OF PRESENT ILLNESS: Patient status post EGD revealing a large hiatal hernia and duodenitis. Biopsies completed. Patient having issues with heartburn and nausea. No vomiting. She does report when she tries to eat she feels that the food does stick. She denies any abdominal pain at this time. Ultrasound was completed did report sludge in the gallbladder, fatty liver and left lobe liver cyst. Per nursing staff patient complaining of back pain. Patient followed by spinal service and scheduled for MRI of the thoracic spine today. Afebrile. WBC 6.57 Hgb 11.4 platelets 298 LFTs normal PHYSICAL EXAM: VITAL SIGNS: Reviewed. GENERAL: Well-developed in no acute distress. ABDOMEN: Soft. Nondistended. Nontender. NEUROLOGIC: Awake and alert answering questions appropriately ASSESSMENT: 1. Large hiatal hernia and duodenitis status post EGD 2. Gallbladder sludge noted on ultrasound PLAN: -Continue Protonix -Continue low fiber diet -Further recommendations forthcoming per surgeon regarding possible repair of large hiatal hernia Physician Dry Room Operator note has been reviewed by physician. Signing provider agrees with the documented findings, assessment, and plan of care. Attestation Patient seen and examined at bedside. Slightly confused, secondary to pain medication according to family. She is status post EGD with finding of large hiatal hernia and duodenitis. She has started on Protonix. Continues to complain of abdominal pain. Ultrasound was performed of the abdomen with sludge in the gallbladder. At this point it is unclear whether hiatal hernia is causing patient's discomfort. Hiatal hernia can be surgically repaired, however there is no guarantee that this would resolve the patient's symptoms. This was discussed in depth with the patient and the patient's family. The patient and the patient's family are requesting surgical intervention. Major surgical risk factors of bleeding, infection and were discussed in depth with the family and they are agreeable with this plan. We will obtain cardiac and pulmonology clearance prior to operative intervention. Johann Romero DO Objective - Vital Signs Vital signs: Vital Signs Temp 98.5 F 04/10/24 13:57 Pulse 91 04/10/24 13:57 Resp 18 04/10/24 13:57 BP 112/74 04/10/24 13:57 Pulse Ox 95 04/10/24 13:57 FiO2 Intake & Output 04/09/24 04/10/24 04/10/24 18:59 06:59 18:59 Intake Total 100 500 Output Total 0 Balance 100 500 Weight 68.039 kg Intake: IV 100 Oral 500 Output: Urine 0 Other: Voiding Method Bedside Commode # Voids 1 1 2 - Labs CBC & Chem 7: 04/10/24 03:34 04/10/24 03:34 Labs: Abnormal Lab Results - Last 24 Hours (Table) 04/10/24 04/10/24 Range/Units 03:34 03:34 RBC 3.47 L (4.10-5.20) X 10*6/uL Hgb 11.4 L (12.0-15.0) g/dL Hct 35.1 L (37.2-46.3) % MCV 101.2 H (80.0-97.0) FL MCH 32.9 H (27.0-32.0) pg MPV 9.1 L (9.5-12.2) FL Carbon Dioxide 20.7 L (21.6-31.8) mmol/L Anion Gap 13.30 H (4.00-12.00) mmol/L Globulin 3.5 H (1.6-3.3) g/dL Albumin/Globulin Ratio 1.09 L (1.60-3.17) Ratio
--- NOTE | 2024-04-10 23:42 | PN ---
PROGRESS NOTE DATE OF SERVICE: 04/10/2024 SUBJECTIVE: This is an 83-year-old woman, who was admitted with fall and back pain, T12 fracture, also has abdominal pain which is probably due to hiatal hernia and as well as gallbladder. Sludge was seen in the gallbladder ultrasound. Surgery, Dr. Romero is planning possible laparoscopic surgery. Meanwhile, MRI of the back has also been ordered. The patient need Ativan for sedation. PAST MEDICAL HISTORY: Reviewed. REVIEW OF SYSTEMS: A 14-point review of systems is negative except as mentioned earlier. CURRENT MEDICATIONS: Reviewed. PHYSICAL EXAMINATION: VITAL SIGNS: Pulse is 89, blood pressure 137/84, respirations 15. CHEST: A few scattered rhonchi and crackles. ABDOMEN: Soft, mild diffuse discomfort. No guarding. No rigidity. LEGS: No edema. NERVOUS SYSTEM: Nonfocal. LABORATORY DATA: Hemoglobin 11.4. ASSESSMENT: 1. Fall and T12 compression fracture. 2. Abdominal pain, possibly hiatal hernia. 3. Ultrasound of gallbladder showing gallbladder sludge. 4. Status post EGD showing only duodenitis, and large hiatal hernia. 5. History of vertebroplasty, T10, T8, and T11. 6. Cholelithiasis without any evidence of cholecystitis. 7. Gait dysfunction. 8. Diverticulitis history. 9. History of gastroesophageal reflux disease. 10.Multiple complex medical issues. RECOMMENDATIONS AND DISCUSSION: Recommend to continue current management and continue symptomatic treatment. Otherwise, at this time, I would recommend Cardiology and Pulmonology consultations for preop clearance and optimization. Repeat labs. Guarded prognosis. Closely follow with Surgery. Discussed with family and as well as Surgery possible surgery. Await MRI. Ativan p.r.n. for MRI. Guarded prognosis. Further recommendations to follow. MMODL / IJN: [id number] /
--- NOTE | 2024-04-11 05:06 | P.CNPUL ---
History of Present Illness Consult date: 04/11/24 Requesting physician: Marta Palumbo Reason for consult: other (Pulmonary clearance) Chief complaint: Epigastric pain History of present illness: We are consulted for pulmonary clearance for potential hiatal hernia repair. Patient is a 83-year-old female with past medical history significant for breast cancer with previous lumpectomy on the left, hypertension, GERD, frequent falls, and previous compression fractures of the thoracic level spine. Of note, on 03/21/2024 patient underwent kyphoplasty of T8-T11 related to acute/subacute compression fractures. She has history of frequent falls. Patient presented back to the emergency department on 04/07/2024 with a chief complaint of pain, particularly in the abdominal/epigastric region. Abdomen/pelvis CT showed a prominent gallbladder without gallstones, thickening or paracholecystic fluid. Mild interstitial changes or atelectasis at the right lung base. Large hiatal hernia. Vertebroplasty of T8-T11 with a mild to moderate compression fracture of T12 without retropulsion. Large amount of stool burden in the colon and rectum. Subsequently, on 04/09/2024 patient went for a EGD remarkable for large hiatal hernia and duodenitis. General surgery is contemplating hiatal hernia repair. We were asked to come see this patient for a pulmonary clearance. Patient is currently being evaluated in the general medical floor. I have just woken the patient up from sleep. She is confused and thinks she is at "[facility]". Questionable historian. Did receive a dose of morphine earlier in the night. Denies any known pre-existing lung disease. Denies smoking history. Denies home O2 use. Denies problems with previous surgeries or general anesthesia. Upper abdomen is slightly tender with deep palpation. Does have issues with gastric reflux and heartburn. She is on 3 L/min nasal cannula. No acute respiratory distress. Chest x-ray showing mild cardiomegaly with interstitial prominence. proBNP was mildly elevated for age at [age]. Echocardiogram estimating preserved left ventricular ejection fraction of 60 to 65%. No significant reported valvular dysfunction. Viral screen was negative for influenza, RSV, COVID. Most recent labs from yesterday including a CBC of 6.6, hemoglobin of 11.4, hematocrit 35.1, platelets 298. CMP is also unremarkable, electrolytes WDL, creatinine 0.7, LFTs not elevated. Total bi lirubin 0.6. Procalcitonin level low. Current vital signs: Temperature 98 F, heart rate 90 bpm, blood pressure 158/96 mmHg, nontachypneic, SpO2 was recorded at 95% on 3 L/min nasal cannula. Review of Systems Constitutional: Denies chills, Denies fatigue, Denies fever, Denies poor appetite, Denies weight gain, Denies weight loss Ears, nose, mouth and throat: Denies headache, Denies nasal congestion, Denies nasal discharge, Denies post-nasal drip, Denies sinus pain, Denies sinus pressure, Denies sore throat Cardiovascular: Denies chest pain, Denies leg edema, Denies orthopnea, Denies palpitations, Denies paroxysmal nocturnal dyspnea, Denies syncope Respiratory: Denies cough, Denies dyspnea, Denies hemoptysis, Denies home oxygen, Denies sleep apnea, Denies wheezing Gastrointestinal: Reports abdominal pain, Reports heartburn, Reports indigestion, Denies constipation, Denies diarrhea, Denies loss of appetite, Denies nausea, Denies vomiting Genitourinary: Denies dysuria Musculoskeletal: Reports frequent falls, Denies arm numbness/tingling, Denies leg numbness/tingling, Denies limitation of motion, Denies muscle weakness, Denies shooting arm pain, Denies shooting leg pain Integumentary: Denies rash Neurological: Denies seizures, Denies syncope Psychiatric: Denies anxiety, Denies depression Past Medical History Past Medical History: Cancer, GERD/Reflux Additional Past Medical History / Comment(s): diverticulitis, left breast cancer History of Any Multi-Drug Resistant Organisms: None Reported Past Surgical History: Appendectomy, Breast Surgery, Orthopedic Surgery, Tonsillectomy Additional Past Surgical History / Comment(s): left breast biopsy, left shoulder rotator cuff Past Anesthesia/Blood Transfusion Reactions: No Reported Reaction Past Psychological History: Anxiety Smoking Status: Former smoker Past Alcohol Use History: Rare Past Drug Use History: None Reported - Past Family History Sister(s) Family Medical History: Cancer Brother(s) Family Medical History: Cancer Medications and Allergies Home Medications Medication Instructions Recorded Confirmed Type Losartan [Cozaar] 50 mg PO DAILY 03/19/24 04/07/24 History PARoxetine [Paxil] 20 mg PO DAILY 03/19/24 04/07/24 History Acetaminophen Tab [Tylenol Tab] 500 mg PO Q6H PRN 04/07/24 04/07/24 History Pantoprazole [Protonix] 40 mg PO DAILY 04/07/24 04/07/24 History Sucralfate [Carafate] 1 gm PO ACHS 04/07/24 04/07/24 History oxyCODONE-APAP 5-325MG [Percocet 1 tab PO Q6HR PRN 04/07/24 04/07/24 History 5-325 mg] Allergies Allergy/AdvReac Type Severity Reaction Status Date / Time No Known Allergies Allergy Verified 04/07/24 08:26 Physical Exam Vitals: Vital Signs Temp Pulse Resp BP Pulse Ox 04/11/24 01:33 98.0 F 91 18 158/96 95 04/10/24 19:45 99 19 04/10/24 19:03 98.0 F 99 19 142/81 91 L 04/10/24 13:57 98.5 F 91 18 112/74 95 04/10/24 07:00 98.3 F 89 20 194/92 93 L Intake and Output 04/10/24 04/10/24 04/11/24 14:59 22:59 06:59 Other: Voiding Method Bedside Commode # Voids 2 0 GENERAL EXAM: Alert, 83-year-old white female, comfortable in no apparent distress. HEAD: Normocephalic and atraumatic EYES: Normal reaction of pupils, equal size. NOSE: Clear with pink turbinates. THROAT: No erythema or exudates. NECK: No masses, no JVD. CHEST: No chest wall deformity. LUNGS: Equal air entry with no crackles, wheeze, rhonchi or dullness. On 3 L/min nasal cannula. No conversational dyspnea or accessory muscle use.. CVS: S1 and S2 normal with soft systolic murmur, regular rhythm. No other extra heart sounds ABDOMEN: No hepatosplenomegaly, active bowel sounds, no guarding or rigidity. SPINE: No scoliosis or deformity SKIN: No rashes CENTRAL NERVOUS SYSTEM: Alert, oriented to self and time. Cranial nerves II through XII intact. No focal deficits, tone is normal in all 4 extremities. EXTREMITIES: Legs are elevated. There is no peripheral edema, clubbing, or cyanosis. Peripheral pulses are intact. Results - Laboratory Findings CBC and BMP: 04/11/24 03:36 04/11/24 03:36 Abnormal lab findings: Abnormal Labs 04/07/24 04/07/24 04/07/24 04:10 04:18 04:18 RBC 3.68 L Hgb Hct MCV 100.6 H MCH MPV Sodium 134 L Carbon Dioxide Anion Gap BUN 26 H BUN/Creatinine Ratio Glucose 109 H Calcium 10.7 H NT-Pro-B Natriuret Pep Globulin Albumin/Globulin Ratio Urine Protein Trace H Urine Ketones 1+ H Ur Leukocyte Esterase Moderate H Urine Mucus Rare H 04/08/24 04/08/24 04/09/24 03:47 03:47 03:50 RBC 3.37 L 3.55 L Hgb 11.2 L 11.5 L Hct 33.9 L 35.5 L MCV 100.6 H 100.0 H MCH 33.2 H 32.4 H MPV 9.2 L 9.3 L Sodium 132 L Carbon Dioxide Anion Gap BUN BUN/Creatinine Ratio 27.67 H Glucose Calcium NT-Pro-B Natriuret Pep Globulin Albumin/Globulin Ratio Urine Protein Urine Ketones Ur Leukocyte Esterase Urine Mucus 04/09/24 04/09/24 04/10/24 03:50 03:50 03:34 RBC 3.47 L Hgb 11.4 L Hct 35.1 L MCV 101.2 H MCH 32.9 H MPV 9.1 L Sodium 134 L Carbon Dioxide 21.5 L Anion Gap BUN BUN/Creatinine Ratio 24.43 H Glucose Calcium NT-Pro-B Natriuret Pep 1868 H Globulin Albumin/Globulin Ratio Urine Protein Urine Ketones Ur Leukocyte Esterase Urine Mucus 04/10/24 03:34 RBC Hgb Hct MCV MCH MPV Sodium Carbon Dioxide 20.7 L Anion Gap 13.30 H BUN BUN/Creatinine Ratio Glucose Calcium NT-Pro-B Natriuret Pep Globulin 3.5 H Albumin/Globulin Ratio 1.09 L Urine Protein Urine Ketones Ur Leukocyte Esterase Urine Mucus - Diagnostic Findings Chest x-ray: image reviewed Assessment and Plan Assessment: Large hiatal hernia Abdominal pain, possibly secondary to above Status post EGD on 04/09/2024 significant for large hiatal hernia and duodenitis GERD, currently receiving Carafate and Protonix Acute hypoxemic respiratory failure, on 3 L/min nasal cannula, most recent chest x-ray from this admission showing mild cardiomegaly with interstitial prominence. No focal infiltrates, pleural effusions, or pneumothoraces. Hypertension History of recent T8, T10, T11 kyphoplasty on 03/21/2024 History of breast cancer with previous lumpectomy on the left History of anxiety/depression Plan: Patient's medications, labs, imaging reviewed Continue supplemental oxygen maintain oxygen saturation of 92% or greater Give patient incentive spirometer to be encouraged 10 times an hour while awake From a pulmonary standpoint, no contraindication to surgery. We will continue to follow I have personally seen and examined the patient, performed the documentation and the assessment and plan as written. Number of minutes spent on the visit:20 The patient is being seen in joint evaluation along with the nurse practitioner. This evaluation was done more than 30 minutes. The patient has a large hiatal hernia, status post EGD on 04/09/2024. Overall respiratory status is stable. The patient is currently on room air oxygen with a pulse ox of 94%. No pulmonary contraindications for surgery as stated. Will follow-up this patient along with the surgical team.Chest x-ray from 04/08/2024 showing no pleural effusion. No pneumothorax. Some mild interstitial prominence with and cardiomegaly is noted. Echocardiogram showing normal LV function. No valvular heart disease. No pulmonary hypertension. Time with Patient: Greater than 30
[2024-04-11 08:47] LABS: Blood Urea Nitrogen 15.2 mg/dL (9.0-27.0); Chloride 101 mmol/L (96-109); Glucose 90 mg/dL (70-110); Potassium 3.2 mmol/L (3.5-5.5); Sodium 135 mmol/L (135-145)
[2024-04-11 08:48] LABS: Calcium 9.9 mg/dL (8.7-10.3)
[2024-04-11 08:55] LABS: HCT 32.6 % (37.2-46.3); MCH 32.8 pg (27.0-32.0); MCHC 33.7 g/dL (32.0-37.0); MCV 97.3 FL (80.0-97.0); Mean Platelet Volume 8.9 FL (9.5-12.2); NRBC Per 100 WBC 0 X 10*3/uL (0.00-0.01); Platelet Count 291 X 10*3/uL (140-440); RBC 3.35 X 10*6/uL (4.10-5.20); RDW 13.9 % (11.5-14.5); WBC 6.48 X 10*3/uL (4.50-10.00)
[2024-04-11 08:56] LABS: Basophils # (A) 0.03 X 10*3/uL (0.00-0.10); Basophils % (A) 0.5 %; Eosinophils # (A) 0.08 X 10*3/uL (0.04-0.35); Eosinophils % (A) 1.2 %; Lymphocytes # (A) 0.88 X 10*3/uL (0.90-5.00); Lymphocytes % (A) 13.6 %; Monocytes # (A) 0.76 X 10*3/uL (0.20-1.00); Monocytes % (A) 11.7 %; Neutrophils # (A) 4.71 X 10*3/uL (1.80-7.70); Neutrophils % (A) 72.7 %
--- NOTE | 2024-04-11 09:22 | P.PN ---
Progress Note - Text Progress Note Date: 04/11/24 The patient is seen and examined at bedside. She is in a chair. She she is sleeping but easily arousable. She complains of pain at her back. She also complains of pain at her abdomen. She denies any changes in her upper extremities or lower extremities. She denies any trouble breathing. She attempted an MRI of her thoracic spine yesterday. She was unable to complete the entirety of the exam. We have sagittal and coronal images but we do not have axial images She is afebrile At her extremities she has sustained dorsiflexion plantarflexion EHL hip flexion and knee extension. She has good motion in her upper extremities. She is globally weak and with her overall status and falls asleep easily. She answers questions appropriately and is easily arousable MRI of thoracic spine done yesterday Shows evidence of prior kyphoplasty at T8 T10 and T11. That appears stable. There is evidence of compression forming at T12 and at T6. These appear to be contained in the anterior column. At T4 there appears to be a compression deformity with posterior wall involvement. It seems to be having some mass effect posteriorly toward the spinal cord. This is not completely characterized as we do not have axial images at the thoracic spine to fully evaluate. I am unable to determine the amount of compression at the thoracic cord at the level of T4. Assessment and plan Incapacitating pain. Apparent burst fracture T4, acute with mass effect posteriorly toward the cord New T6 and T12 compression fractures Prior kyphoplasty T8 T10 and T11 which appears stable No apparent neurologic compromise the upper and lower extremities Hiatal hernia It is difficult to fully determine the nature of the patient's pain. It would be unusual for her to have this type of pain and symptoms acutely from the hernia as per surgery discussion. The patient does seem to have a new issue at her thoracic spine particularly with the fracture at T4. This seems to be causing some mass effect of the cord. She is not having acute neurologic deficit. I think we need further imaging of the space particular with axial images. She was unable to tolerate the MRI and may be able to tolerate a CT scan which will provide more bony detail of the space. We will order CT scan to more fully evaluate thoracic spine. We will order a brace for her to help protect the fractures. She is to have the brace on when she is out of bed. Considering other options for treatment. If there is significant posterior wall involvement and mass affecting the cord then kyphoplasty would not be appropriate for her. We would have to consider decompression and fusion surgery. This would be quite extensive and it is difficult to predict how the patient would be able to tolerate this type of procedure. Would have to have further discussions with her and her family as to whether approach this type of significant intervention given her overall status. It may be best to consider the possibility of transfer to a tertiary facility if the patient were to consider decompression and fusion at the T4 space particularly as it may have to consider anterior involvement and the possibility of further stabilization across the other fractures of T6 and T12. Given her osteoporotic state this would be at significantly high risk. I think that we need to hold off on abdominal surgical intervention until we get the T4 level more fully evaluated and disposition for appropriate treatment. I will discuss this with family and surgery service as well
--- NOTE | 2024-04-11 11:01 | P.PN ---
Subjective HISTORY OF PRESENT ILLNESS: This is a pleasant 83-year-old female past medical history significant for mild aortic stenosis and dyslipidemia. She follows in the office with Dr. Pace. We have been asked to see in consultation for heart failure. She is seen and examined resting comfortably laying completely flat in bed. She had an EGD this morning and is still quite lethargic from the anesthesia. She does open her eyes but falls asleep rather quickly. We have been asked to see her for heart failure based on chest x-ray. She presented to the hospital with abdominal and back pain. EGD today revealed duodenitis and a large hiatal hernia. DIAGNOSTICS EKG reveals sinus rhythm. Chest xray bilateral pleural effusions. Laboratory reviewed, hemoglobin 11.5, platelets 353, sodium 134, potassium 4, creatinine 0.7. No NT proBNP was drawn. Current cardiac medications include losartan 50 mg daily. Most recent echocardiogram obtained in the office January 2023 revealed preserved LV systolic function with ejection fraction 50 to 55%, mildly calcified aortic leaflets with no regurgitation and mild stenosis mean gradient of 4, trace to mild MR and mild TR with an RVSP of 16 04/11/2024 Patient examined this morning at the bedside. Patient is somewhat confused as she received Ativan for her MRI per nursing. Patient without complaints of chest pain or shortness of breath. Vital signs are stable. Echocardiogram completed revealing ejection fraction 60 to 65%, no obvious regional wall motion abnormalities and trace tricuspid regurgitation. PHYSICAL EXAM: VITAL SIGNS: Reviewed. GENERAL: Well-developed in no acute distress. NECK: Supple. No JVD or thyromegaly LUNGS: Respirations even and unlabored. Lungs essentially clear to auscultation bilaterally. HEART: Regular rate and rhythm. S1 and S2 heard. + systolic murmur. EXTREMITIES: Normal range of motion. No clubbing or cyanosis. Peripheral pulses intact. No lower extremity edema ASSESSMENT: Fall with back pain and vertebral fracture Abdominal pain Large hiatal hernia and duodenitis status post EGD Gallbladder sludge noted on ultrasound Apparent burst fracture T4, acute with mass effect posteriorly toward the cord New T6 and T12 compression fractures Hypertension PLAN: Continue current cardiac medications General surgery following with possible plans for hiatal hernia repair Orthopedics following. Unable to tolerate MRI. CT scan ordered. If surgery is deemed necessary from either orthopedics or general surgery, patient is at high risk from a cardiac standpoint. Patient without previous stress testing or cardiac cath and status of her coronary arteries is unknown. However, no absolute contraindications. Will defer ultimate decision to orthope dics and general surgery. Further recommendations pending patient course Nurse practitioner note has been reviewed by physician. Signing provider agrees with the documented findings, assessment, and plan of care documented by PUBLIC INFORMATION OFFICER as a scribe. Objective - Vital Signs Vital signs: Vital Signs Temp 98.2 F 04/11/24 06:59 Pulse 94 04/11/24 06:59 Resp 19 04/11/24 06:59 BP 157/82 04/11/24 06:59 Pulse Ox 94 L 04/11/24 06:59 FiO2 Intake & Output 04/10/24 04/11/24 04/11/24 18:59 06:59 18:59 Other: Voiding Method Bedside Commode Bedside Commode # Voids 2 1 1 - Labs CBC & Chem 7: 04/11/24 03:36 04/11/24 03:36 Labs: Abnormal Lab Results - Last 24 Hours (Table) 04/10/24 04/11/24 04/11/24 Range/Units 03:34 03:36 03:36 RBC 3.35 L (4.10-5.20) X 10*6/uL Hgb 11.0 L (12.0-15.0) g/dL Hct 32.6 L (37.2-46.3) % MCV 97.3 H (80.0-97.0) FL MCH 32.8 H (27.0-32.0) pg MPV 8.9 L (9.5-12.2) FL Lymphocytes # 0.88 L (0.90-5.00) X 10*3/uL Potassium 3.2 L (3.5-5.5) mmol/L Carbon Dioxide 20.7 L 21.0 L (21.6-31.8) mmol/L Anion Gap 13.30 H 13.00 H (4.00-12.00) mmol/L Globulin 3.5 H (1.6-3.3) g/dL Albumin/Globulin Ratio 1.09 L (1.60-3.17) Ratio
[2024-04-11] MEDS: POTASSIUM CHLORIDE ER 20 MEQ TAB.ER PO SCH (12:26)
--- NOTE | 2024-04-11 13:47 | P.PN ---
Subjective Progress Note Date: 04/11/24 SURGICAL PROGRESS NOTE CHIEF COMPLAINT: Epigastric pain HISTORY OF PRESENT ILLNESS: Patient status post EGD revealing a large hiatal hernia and duodenitis. Biopsies completed. Patient seen and examined this morning. Patient is sitting at bedside chair. Patient is very lethargic likely related to pain medications and Ativan. Oral intake is diminished. Patient followed by orthopedic spinal service who are following in regards to patient's spinal fractures. They noted a T4 burst fracture with mass effect towards the cord. Patient does complain of back pain. Currently denies abdominal pain. Denies any nausea or vomiting. Afebrile. WBC 6.48 Hgb 11.0 PHYSICAL EXAM: VITAL SIGNS: Reviewed. GENERAL: Well-developed in no acute distress. ABDOMEN: Soft. Nondistended. Nontender. NEUROLOGIC: Awake and alert answering questions appropriately ASSESSMENT: 1. Large hiatal hernia and duodenitis status post EGD 2. Gallbladder sludge noted on ultrasound 3. T4 spine fracture PLAN: -No plans for surgical intervention on the large hiatal hernia at this time. Dr. Franks and Dr. Romero did discuss patient's case. Dr. Franks recommending to hold off on abdominal surgery until the T4 fracture is fully evaluated and may require transfer for treatment. -Continue Protonix -Continue low fiber diet Physician Senior Mechanical Design Engineer note has been reviewed by physician. Signing provider agrees with the documented findings, assessment, and plan of care. Attestation Patient seen and examined at bedside with son at bedside. Patient with some improving epigastric pain at this time. Continue low fiber diet. Case was discussed with spine surgery with concern for T4 fracture. Recommendation has been made for further evaluation of T4 fracture prior to consideration for any abdominal surgery. This was discussed with the patient's family at bedside. Recommendations per spine surgery. Johann Romero DO Objective - Vital Signs Vital signs: Vital Signs Temp 98.2 F 04/11/24 06:59 Pulse 94 04/11/24 06:59 Resp 19 04/11/24 06:59 BP 157/82 04/11/24 06:59 Pulse Ox 94 L 04/11/24 06:59 FiO2 Intake & Output 04/10/24 04/11/24 04/11/24 18:59 06:59 18:59 Other: Voiding Method Bedside Commode Bedside Commode # Voids 2 1 1 - Labs CBC & Chem 7: 04/11/24 03:36 04/11/24 03:36 Labs: Abnormal Lab Results - Last 24 Hours (Table) 04/11/24 04/11/24 Range/Units 03:36 03:36 RBC 3.35 L (4.10-5.20) X 10*6/uL Hgb 11.0 L (12.0-15.0) g/dL Hct 32.6 L (37.2-46.3) % MCV 97.3 H (80.0-97.0) FL MCH 32.8 H (27.0-32.0) pg MPV 8.9 L (9.5-12.2) FL Lymphocytes # 0.88 L (0.90-5.00) X 10*3/uL Potassium 3.2 L (3.5-5.5) mmol/L Carbon Dioxide 21.0 L (21.6-31.8) mmol/L Anion Gap 13.00 H (4.00-12.00) mmol/L
--- NOTE | 2024-04-11 17:03 | CT ---
EXAMINATION TYPE: CT thoracic spine wo con CT DLP: 1308 mGycm, Automated exposure control for dose reduction was used. DATE OF EXAM: 04/11/2024 4:37 PM COMPARISON: Chest radiograph 04/08/2024, lumbar spine radiograph 03/19/2024, outside institution CT ches t abdomen and pelvis 03/18/2024 CLINICAL INDICATION:Female, 83 years old with history of Thoracic back pain, T4 poss burst fx, T6 and T12 f; PHH, back pain TECHNIQUE: Axial images of the thoracic spine were obtained without contrast. Coronal and sagittal re formats were performed. FINDINGS: Postsurgical changes are vertebral augmentation involving the T8, T10, and T11 vertebral chelita dies. No significant extrusion of cement outside the bodies and disc identified. There is again 50 % height loss of the T8 vertebral body without retropulsion which is marginally improved. No significan t height loss involving the T10 and T11 vertebral bodies. Redemonstration of fracture involving the T 4 vertebral body with approximately 40% height loss and no retropulsion. This most prominently involv es the superior and inferior endplates. There is diffuse heterogenous sclerotic appearance. No defini tive extension into the posterior elements. Developing inferior endplate compression deformities of t he T6 and T12 vertebral body without retropulsion or significant height loss. There is sclerosis iden tified. No significant central canal or neural foraminal stenosis identified. Large hiatal hernia with at least 50% intrathoracic. Trace bilateral pleural effusions with bibasilar patchy consolidative opacities. IMPRESSION: 1. Redemonstration of T4 vertebral body fracture with approximately 40% height loss and no significa nt retropulsion. This is a suggested burst fracture with compression component not excluded. 2. Redemonstration of inferior endplate compression deformities of the T6 and T12 vertebral bodies w ithout significant height loss or retropulsion. 3. Both vertebral augmentation changes for compression deformities involving the T8, T10, T11 verteb ral bodies. 4. Trace bilateral pleural effusions with bibasilar patchy consolidative opacities concerning for in fectious process. Correlate for possible aspiration. 5. Large hiatal hernia. [facility], , 04/11/2024 5:01 PM
--- NOTE | 2024-04-11 18:18 | P.PN ---
Progress Note - Text Progress Note Date: 04/11/24 The patient is again seen and examined this evening. The [id number] is at bedside and we had a long discussion about the patient. The patient was able to complete her thoracic MRI. There is no reading of the thoracic MRI yet. She was able to complete the thoracic CT scan as well. She denies any new symptoms. She says she has pain in her back she has pain at her upper abdomen. She denies any nausea. She has difficulty eating. She has she has increased pain when she tries to move at her back. She denies any new weakness numbness or tingling in her upper or lower extremities. She denies any changes in bowel bladder function. The CT scan of the thoracic spine report states that they do not see any specific bony retropulsion. I do see some expansion posteriorly particulate to the left on the CT scan at the fracture T4. We also note the fracture at T6 the prior fractures at T8 T10-T11 with kyphoplasty and the new fracture at T12 as well. The MRI of the thoracic spine has been completed. There is no official reading. I see evidence of fracture at T4 with retropulsion and space-occupying signal at the neural canal. There seems to be some impingement and displacement of the thoracic cord with signal at the left canal behind T4. I do not see obvious cord signal change. We also see if evidence of acute or subacute fractures at T6 and T12 with prior fractures and kyphoplasty T8 T10 and T11. Assessment and plan New T4 fracture with posterior wall involvement and mass causing stenosis at the thoracic cord behind T4. It is difficult to determine if this mass is bleeding from the fracture versus bony fragment. We do not have reading of the MRI yet. Thoracic back pain and inability to ambulate. No focal neurologic deficit at the lower extremities or upper extremities Abdominal hiatal hernia with difficulty eating and abdominal pain I think that the patient is having significant symptoms stemming from the T4 fracture. I see some evidence of posterior wall involvement and middle column involvement at T4 fracture particular to the left. The MRI also shows some evidence of retropulsion versus potentially bleeding causing some stenosis behind T4 fracture. I think that the patient could be a candidate for decompression and fusion at that level. She has severe osteoporosis and has had multiple recent compression fractures with limited trauma. Certainly surgery would be significant risk and it is very difficult to determine how she could r ecover and respond to a surgery of this nature. Her osteoporosis also increases the risk particularly given that stabilization may require cement augmentation and would have to consider extension to the other for new fractures at T6 and T12 as well as accommodating the prior kyphoplasty's at T8 T10 and 11. Given the significant risk and the patient's age and overall status I think that this level of care extends beyond the scope of treatment that we can provide and I would recommend that she be transferred to a tertiary facility for further workup and definitive treatment and management. I discussed this with the patient and the patient's family at length and they are agreeable. They are interested in pursuing full treatment and potentially surgical intervention as indicated. We will start to work on appropriate transfer. We have placed the patient on bedrest. I ordered a TLSO brace but apparently they are not able to obtain it as she recently obtained an LSO brace. She is declining use of the TLSO brace at this point. The patient also has abdominal hiatal hernia and was considering surgical intervention for this. She may seek further treatment for this as well. I think that the T4 issue needs to be stabilized or addressed prior to surgical intervention at her abdomen. I explained this to the patient's family as well as to surgery and they agree.
--- NOTE | 2024-04-11 18:35 | P.PN ---
Progress Note - Text Progress Note Date: 04/11/24 I was able to speak with the transfer team at [facility]. The patient requested that facility. I spoke with the transfer team and I spoke with the spine surgery at that facility who has accepted the patient for transfer. They have notified us that they are at capacity and they will work on assignment of a bed as soon as they are able. They will arrange for transfer as soon as they are able.
--- NOTE | 2024-04-11 18:55 | P.DS ---
Providers Date of admission: 04/07/24 13:28 Attending physician: Zeke Rodarte Consults: 04/07/24 07:49 Consult Physician Urgent Consulting Provider: Jorge Franks Consult Reason/Comments: compression fracture Do you want consulting provider notified?: Yes 04/07/24 12:49 Consult Physician Routine Consulting Provider: Isrrael Pichardo Consult Reason/Comments: abd pain Do you want consulting provider notified?: Yes 04/10/24 12:54 Consult Physician Routine Consulting Provider: Anirudh Trejo Consult Reason/Comments: cardio clearance for hiatal hernia Do you want consulting provider notified?: Yes Consult Physician Urgent Consulting Provider: Nic Ingram Consult Reason/Comments: surgical clearance for hiatal hernia Do you want consulting provider notified?: Yes Primary care physician: Elvin Parsons Hospital Course: Patient is a pleasant 83-year-old woman who was admitted to the hospital in regards to multiple falls debility abdominal pain and back pain. The patient has been having abdominal pain for the past several months but had increased back pain. She also has a history significant for aortic stenosis which is mild and dyslipidemia. About 3 weeks ago the patient underwent surgical intervention for her spine where she had multiple compression fractures at T8 T10 and T11. She did well with those and was able to recover nicely and be at home on her own. However she stumbled and fell and had some increasing pain at her back and she has had a couple more falls over the past week. She has been unable to get up on her own. She says the pain is mainly at her upper abdomen and at her upper back. She denies any numbness tingling or weakness in her upper or lower extremities. She denies any new neurologic changes in her upper or lower extremities. She denies any changes in bowel bladder function. The patient was admitted admitted and had significant workup for abdominal pain as well. She underwent an EGD which showed duodenitis and large hiatal hernia. The family was interested in having the patient pursue surgical intervention for her hiatal hernia. She was being stabilized and further worked up in regard to her back pain. The patient has continued have back pain and further workup showed evidence of new compression fracture at T12 as well as at T6 and a new compression fracture or burst fracture at T4. Her prior compression fractures and kyphoplasty's at T8 T10 and T11 appear to be stable. She has had further workup in regards to these fractures. On exam the patient is alert and oriented x 3. She is somewhat sedated with her pain medications but easily arousable and answers questions appropriately. She follows commands appropriately. She has 5-5 strength with landscape laborer biceps and triceps equal bilaterally. She has no pain at her neck. She has 5 of 5 strength dorsiflexion plantarflexion EHL and is able to lift her legs up off the bed independently. No pain with internal extra rotation of her hips. Her abdomen is soft. She has mild tenderness at her upper abdominal area. No rebound rigidity or guarding at her back she has some tenderness to palpation at the midline at her upper thoracic spine. There is no open wounds lacerations or abrasions. She has pain at this area with mobilization And rolling. She has some mild tenderness at the mid thoracic and lower thoracic. EGD was performed 04/09/2024 which showed duodenitis and the large hiatal hernia MRI of thoracic spine completed today shows evidence of burst fracture of T4 with some posterior involvement and evidence of thoracic stenosis and cord distortion without cord signal change. There is also fracture at T6 and T12 which appear to be subacute without bony retropulsion. There is evidence of prior fracture and kyphoplasty at T8 T10 and T11 which appears stable Assessment Acute T4 burst fracture with bony retropulsion and stenosis at the thoracic cord Inability to ambulate Subacute compression fractures T6 and T12 without spinal cord compromise or stenosis stable compression deformity status post kyphoplasty T8 T10 and T12 Duodenitis and large hiatal hernia with abdominal pain and difficulty eating Severe osteoporosis with multiple recent falls The patient has multiple significant issues. I think that her T4 fracture is relatively unstable and is putting her thoracic cord at some compromise. She is not having any neurologic deficit at this point but I think that she reviewed required decompression with stabilization. Given her multiple compression fractures and severe osteoporosis I think that she is at severe high risk in this regard. I think that treatment would include decompression and fusion at multiple levels and it is difficult to predict her overall outcome. I think that this type of case would be beyond the scope of treatment in our facility and I discussed possibly of transfer to a tertiary facility with the family and the patient at length. I have also discussed this with house staff as well as medicine service and surgery. We will plan to transfer the patient to [facility]. We have discussed with their transfer team and they have an accepting physician as well as a bed availability for further treatment and definitive care. She can also continue her management and treatment in regards to her hiatal hernia and abdominal issues at that tertiary facility and I explained this to the patient and family as well. We will make further arrangements and obtain appropriate imaging and lab work and test and a packet for her for her transfer as soon as possible. Patient Condition at Discharge: Serious Plan - Discharge Summary Discharge Rx Participant: No New Discharge Prescriptions: No Action PARoxetine [Paxil] 20 mg PO DAILY Losartan [Cozaar] 50 mg PO DAILY Sucralfate [Carafate] 1 gm PO ACHS Pantoprazole [Protonix] 40 mg PO DAILY Acetaminophen Tab [Tylenol Tab] 500 mg PO Q6H PRN PRN Reason: Pain oxyCODONE-APAP 5-325MG [Percocet 5-325 mg] 1 tab PO Q6HR PRN PRN Reason: Pain Discharge Medication List Losartan [Cozaar] 50 mg PO DAILY 03/19/24 [History] PARoxetine [Paxil] 20 mg PO DAILY 03/19/24 [History] Acetaminophen Tab [Tylenol Tab] 500 mg PO Q6H PRN 04/07/24 [History] Pantoprazole [Protonix] 40 mg PO DAILY 04/07/24 [History] Sucralfate [Carafate] 1 gm PO ACHS 04/07/24 [History] oxyCODONE-APAP 5-325MG [Percocet 5-325 mg] 1 tab PO Q6HR PRN 04/07/24 [History] Follow up Appointment(s)/Referral(s): Elvin Parsons MD [Primary Care Provider] - 1 Week Activity/Diet/Wound Care/Special Instructions: Bed rest. May have head of bed elevated up to 40 degrees Discharge Disposition: [facility] Plan of Treatment: Patient is being transferred to [facility]. We have spoken with [facility] in regards to transfer for higher level of care in regards to her T4 burst fracture with thoracic cord compression and multiple other compression fractures. She has admitting physician and a room assignment and is planning for transfer as soon as possible. I discussed this with medicine service with Dr. Rodarte as well as with the family and they are all in agreement. I will also notify general surgery as they were involved in case as well.
--- NOTE | 2024-04-11 19:04 | MR ---
EXAMINATION TYPE: MR thoracic spine wo con DATE OF EXAM: 04/10/2024 10:47 AM COMPARISON: CT imaging of the spine. CLINICAL INDICATION: Female, 83 years old with history of upper abd pain T12 fx, recent T8, 10, 11 ky [place], Upper abd pn, T12 fx, recent kyphoplasty. TECHNIQUE: Multi planar, multi sequence imaging was performed utilizing: T1-weighted, short-tau inver james recovery and T2-weighted of the thoracic spine. IV Contrast: mL (None, if empty) FINDINGS: Evaluation limited by motion artifact. Multiple compression deformities are seen throughout the spine. This results in increased kyphotic cu rvature of the spine. Bony edema is seen at multiple levels including T4, T6 and T8 and T12 with comp ression deformities at each of these levels. There is up to 50 % height loss at T4, 25% height loss a t T6 and greater than 75% height loss at at T8 and less than 25% height loss at T12. Kyphoplasty hudson ges at T10 and T11 with low signal present. Kyphoplasty changes may also be present at T8. There is a bnormal soft tissue signal at the level of C4 with soft tissue mass along the sympathetic chain serie s 1501 image 11 which is lower T1 and T2 signal Soft tissue mass measures at least 28 x 12 mm and res ults in moderate to severe spinal canal stenosis. There is at least moderate bilateral L4-L5 neural f oraminal stenosis. Evaluation limited by motion. There is a large hiatal hernia present. Multilevel degeneration changes with osteophyte formation fac et joint arthropathy with osteophytes. IMPRESSION: 1. T12 inferior endplate suspected compression fracture with less than 25% height loss. Additional c ompression deformities at T4, T6 and T8 with bony edema and height loss as described above.. 2. Kyphoplasty changes of T8, T10 and T11. 3. Soft tissue in the spinal canal at the level of T4 with sympathetic chain soft tissue mass/lymph node present. Etiology uncertain. Correlate with history of malignancy. Consider PET/CT imaging. This results in moderate to severe spinal canal stenosis. No additional evidence for significant spinal c anal stenosis. [facility], , 04/11/2024 7:02 PM
[2024-04-11 20:12] VITALS: BP 179/96; PULSE 92; RESP 19; TEMP 98.1
--- NOTE | 2024-04-11 21:03 | PN ---
PROGRESS NOTE DATE OF SERVICE: 04/11/2024 SUBJECTIVE: This is an 83-year-old woman, who was admitted with fall and T12 compression fracture, also has hiatal hernia as well as gallbladder issues also. Dr. Cardenas has recommended to hold off the abdominal surgery till T4 fracture is fully evaluated and continue to monitor. PAST MEDICAL HISTORY: Reviewed. REVIEW OF SYSTEMS: A 14-point review of systems is negative except as mentioned earlier. CURRENT MEDICATIONS: Reviewed. PHYSICAL EXAMINATION: VITAL SIGNS: Pulse is 95, blood pressure 140/97, respirations 16. CHEST: A few scattered rhonchi and crackles. ABDOMEN: Soft. NERVOUS SYSTEM: Nonfocal. LABORATORY DATA: Reviewed. MRI is pending at this time. ASSESSMENT: 1. Fall and T12 compression fracture. 2. Large hiatal hernia and abdominal pain. 3. Ultrasound of the gallbladder showing gallbladder sludge. 4. Status post EGD showing only duodenitis and large hiatal hernia. 5. History of vertebroplasty, T8, T10 and T11. 6. Cholelithiasis without any evidence of cholecystitis. 7. Gait dysfunction. 8. Diverticulosis history. 9. Multiple complex medical issues. RECOMMENDATIONS AND DISCUSSION: Recommend to continue current management and continue symptomatic treatment. We will closely follow with Orthopedic Surgery and as well as Surgery. Continue to monitor. Guarded prognosis. Pulmonary and Cardiology evaluation in progress. Possible surgery versus transfer. Further recommendations to follow. MMODL / IJN: [id number] /
== END 2024-04-11 20:23 | disposition short-term general hospital (02) | DRG 551 ==
LOC: EC 02:45 → 6NMEDSUR 07:49 → 4SSUR 11:06 → OBSVTOIN 13:28
PROVIDERS: ADMIT Hospitalist; ATTEND Hospitalist
PROC: 0DB78ZX Excision of Stomach, Pylorus, Via Natural or Artificial Opening Endoscopic, Diagnostic (ICD-10-PCS; 2024-04-09)
PROC: 0DB48ZX Excision of Esophagogastric Junction, Via Natural or Artificial Opening Endoscopic, Diagnostic (ICD-10-PCS; 2024-04-09)
PROC: 0DB98ZX Excision of Duodenum, Via Natural or Artificial Opening Endoscopic, Diagnostic (ICD-10-PCS; principal; 2024-04-09 07:30)
DX: S22.089A Unspecified fracture of T11-T12 vertebra, initial encounter for closed fracture (principal); J96.01 Acute respiratory failure with hypoxia; I11.0 Hypertensive heart disease with heart failure; I50.9 Heart failure, unspecified; K29.80 Duodenitis without bleeding; M48.04 Spinal stenosis, thoracic region; S22.041A Stable burst fracture of fourth thoracic vertebra, initial encounter for closed fracture; I35.0 Nonrheumatic aortic (valve) stenosis; K76.0 Fatty (change of) liver, not elsewhere classified; M48.54XA Collapsed vertebra, not elsewhere classified, thoracic region, initial encounter for fracture; J98.11 Atelectasis; Z11.52 Encounter for screening for COVID-19; E78.5 Hyperlipidemia, unspecified; K44.9 Diaphragmatic hernia without obstruction or gangrene; F41.9 Anxiety disorder, unspecified; K80.20 Calculus of gallbladder without cholecystitis without obstruction; R29.6 Repeated falls; W19.XXXA Unspecified fall, initial encounter; Z91.81 History of falling; K21.9 Gastro-esophageal reflux disease without esophagitis; K29.70 Gastritis, unspecified, without bleeding; K59.00 Constipation, unspecified; K76.89 Other specified diseases of liver; K82.8 Other specified diseases of gallbladder; M81.0 Age-related osteoporosis without current pathological fracture; W01.0XXA Fall on same level from slipping, tripping and stumbling without subsequent striking against object, initial encounter; Z79.899 Other long term (current) drug therapy; Z85.3 Personal history of malignant neoplasm of breast; Z87.11 Personal history of peptic ulcer disease; Z87.891 Personal history of nicotine dependence; I08.1 Rheumatic disorders of both mitral and tricuspid valves
CPT/HCPCS: 36415; 43239; 71045; 72128; 72146; 74177; 76705; 80048; 80053; 81001; 82150; 83690; 83880; 84145; 85025; 85652; 86140; 87636; 88305; 88341; 88342; 93005; 93306; 96374; 96376; 99285

== ENCOUNTER → 2024-05-17 | Outpatient (CLI) | payer MEDICARE ==
--- NOTE | 2024-05-21 08:49 | PE ---
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 Images are reviewed on the computer in the coronal, axial, and sagittal planes. Reconstructed rotating images are created on independent workstation and reviewed on the computer. A non-contrast CT is performed in conjunction with the PET scan. Glucose level 119 mg/dL CT DLP: 438 mGycm, Automated exposure control for dose reduction was used. COMPARISON: CT None, PET/CT None, MRI: None FINDINGS: Mediastinal SUV mean is 1.9. Hepatic parenchyma SUV mean is 3.2. SKULL BASE AND NECK: CHEST, MEDIASTINUM, AND HILAR REGION: ABDOMEN AND PELVIS: MUSCULOSKELETAL STRUCTURES: Scattered osseous metabolic reactive lesions are seen throughout the exam including: * Diffusely throughout the spine including left anterior C1 max SUV 10.6 and The odontoid process ma x SUV 5.6 * Lesion posterior are within the posterior aspect of the sternum max SUV 9.5. * Scattered throughout multiple levels of the spine with suspected multilevel compression deformitie s. Vertebroplasty changes seen throughout the spine as well. * Left rib to max SUV 5.4 right rib to max SUV 5.5. * Right scapula max SUV 7.3. * Right sacrum max SUV 15.9. * Right iliac bone max is V 10.0. * Left iliac bone max SUV 11.4. * Left proximal femur max SUV 10.7. * Right proximal femur max SUV 14.7. * Right inferior pubic ramus max SUV 11.[address]: Atherosclerosis of the arterial vasculature. Large hiatal hernia with the majority the stomach in the thorax. Trace or pleural fusion. Bifurcation calcifications are present on the left which are minimal. Scattered colonic diverticula. Fat-containing umbilical hernia. IMPRESSION: Diffuse osseous metabolically active lesions majority of which are in the spine findings are compatib le with multiple myeloma. Multilevel spinal uptake likely with some of them likely representing compr ession deformities. Correlate with MRI for evaluation of the spinal canal. [facility], , 05/21/2024 8:47 AM
== END | disposition home or self-care (01) ==
LOC: RADPETMAIN 11:29
PROVIDERS: ATTEND Internal Medicine Hematology & Oncology
DX: C90.00 Multiple myeloma not having achieved remission (principal)
CPT/HCPCS: 78815; A9552

== ENCOUNTER 2024-10-10 15:49 | Observation (INO) | payer MEDICARE ==
--- NOTE | 2024-10-10 16:02 | ED ---
Chest Pain HPI - General Chief Complaint: Chest Pain Stated Complaint: chest pain Time Seen by Provider: 10/10/24 16:01 Source: patient, EMS, RN notes reviewed, old records reviewed Mode of arrival: EMS Limitations: no limitations - History of Present Illness Initial Comments: This is a 83 female to ER with chest pain patient history of high blood pressure no history of heart disease no travel history or sick contacts. Patient had chest pain when the kitchen doing some work today heaviness on the left side of her chest. Patient called EMS that she felt extreme to pass out patient was given nitro which improved pain MD Complaint: chest pain -: minutes(s) Onset: during rest Pain Location: substernal, left chest Pain Radiation: none Severity: moderate Quality: tightness, aching, heaviness Consistency: constant Improves With: nitroglycerin Worsens With: nothing Anginal Symptoms: sense of impending doom Other Symptoms: palpitations Treatments Prior to Arrival: none - Related Data Home Medications Medication Instructions Recorded Confirmed Losartan [Cozaar] 50 mg PO BID@0900,169903/19/24 10/10/24 PARoxetine [Paxil] 20 mg PO DAILY@89903/19/24 10/10/24 Pantoprazole [Protonix] 40 mg PO DAILY@89904/07/24 10/10/24 Sucralfate [Carafate] 1 gm PO BID@0900,169904/07/24 10/10/24 Acyclovir [Zovirax] 400 mg PO BID@0900,209910/10/24 10/10/24 Apixaban [Eliquis] 5 mg PO BID@09,209910/10/24 10/10/24 Gabapentin [Neurontin] 200 mg PO TID@0100,0900,169910/10/24 10/10/24 Lenalidomide [Revlimid] 15 mg PO DIRECTED@89910/10/24 10/10/24 carvediloL [Coreg] 6.25 mg PO BID@0900,209910/10/24 10/10/24 dexAMETHasone [Decadron] 20 mg PO MO@89910/10/24 10/10/24 Allergies Allergy/AdvReac Type Severity Reaction Status Date / Time shellfish derived [Shrimp] AdvReac Nausea & Verified 10/10/24 18:16 Vomiting Review of Systems ROS Statement: Those systems with pertinent positive or pertinent negative responses have been documented in the HPI. ROS Other: All systems not noted in ROS Statement are negative. EKG Findings - EKG Comments: EKG Findings:: EKG is sinus 62 FL 171 QRS 118 QTc 449 - EKG Results: EKG: interpreted by SAVANAH Past Medical History Past Medical History: Cancer, GERD/Reflux Additional Past Medical History / Comment(s): diverticulitis, left breast cancer History of Any Multi-Drug Resistant Organisms: None Reported Past Surgical History: Appendectomy, Breast Surgery, Orthopedic Surgery, Tonsillectomy Additional Past Surgical History / Comment(s): left breast biopsy, left shoulder rotator cuff Past Anesthesia/Blood Transfusion Reactions: No Reported Reaction Past Psychological History: Anxiety Smoking Status: Former smoker Past Alcohol Use History: Rare Past Drug Use History: None Reported - Past Family History Sister(s) Family Medical History: Cancer Brother(s) Family Medical History: Cancer General Exam Limitations: no limitations General appearance: alert, in no apparent distress Head exam: Present: atraumatic, normocephalic, normal inspection Eye exam: Present: normal appearance, PERRL, EOMI. Absent: scleral icterus, conjunctival injection, periorbital swelling ENT exam: Present: normal exam, mucous membranes moist Neck exam: Present: normal inspection. Absent: tenderness, meningismus, lymp hadenopathy Respiratory exam: Present: normal lung sounds bilaterally. Absent: respiratory distress, wheezes, rales, rhonchi, stridor Cardiovascular Exam: Present: regular rate, normal rhythm, normal heart sounds. Absent: systolic murmur, diastolic murmur, rubs, gallop, clicks GI/Abdominal exam: Present: soft, normal bowel sounds. Absent: distended, tenderness, guarding, rebound, rigid Extremities exam: Present: normal inspection, full ROM, normal capillary refill. Absent: tenderness, pedal edema, joint swelling, calf tenderness Back exam: Present: normal inspection Neurological exam: Present: alert, oriented X3, CN II-XII intact Psychiatric exam: Present: normal affect, normal mood Skin exam: Present: warm, dry, intact, normal color. Absent: rash Course Vital Signs 10/10/24 15:51 Temperature 99.1 F Pulse Rate 65 Respiratory 17 Rate Blood Pressure 190/81 O2 Sat by Pulse 97 Oximetry - Reevaluation(s) Reevaluation #1: 10/10/24 18:38 Medical records reviewed Reevaluation #2: 10/10/24 18:38 Patient still has chest pain and increasing chest pain here in the ER Reevaluation #3: 10/10/24 18:38 Patient informed of results and questions answered Reevaluation #4: Was pt. sent in by a medical professional or institution (, MELY, FINISH PAINTER, urgent care, hospital, or [place] health care facility...) When possible be specific @ -no Did you speak to anyone other than the patient for history (EMS, parent, family, police, friend...)? What history was obtained from this source @ -no Did you review nursing and triage notes (agree or disagree)? Why? @ -agree Are old charts reviewed (outside hosp., previous admission, EMS record, old EKG, old radiological studies, urgent care reports/EKG's, [place] health care facility records)? Report findings @ -yes Differential Diagnosis (chest pain, altered mental status, abdominal pain women, abdominal pain men, vaginal bleeding, weakness, fever, dyspnea, syncope, headache, dizziness, GI bleed, back pain, seizure, CVA, palpatations, mental health, musculoskeletal)? @ -prior EKG interpreted by me (3pts min.). @ -yes X-rays interpreted by me (1pt min.). @ -yes negative for acute disease CT interpreted by me (1pt min.). @ -no U/S interpreted by me (1pt. min.). @ -no What testing was considered but not performed or refused? (CT, X-rays, U/S, labs)? Why? @ -none What meds were considered but not given or refused? Why? @ -none Did you discuss the management of the patient with other professionals (professionals i.e. , MELY, FINISH PAINTER, lab, RT, psych nurse, criminal justice social worker, tear down man, teacher, commissioned security officer, residential case manager)? Give summary @ -no Was smoking cessation discussed for >3mins.? @ -no Was critical care preformed (if so, how long)? @ -no Were there social determinants of health that impacted care today? How? (Homelessness, low income, unemployed, alcoholism, drug addiction, transportation, low edu. Level, literacy, decrease access to med. care, custodial, rehab)? @ -none Was there de-escalation of care discussed even if they declined (Discuss DNR or withdrawal of care, Hospice)? DNR status @ -no What co-morbidities impacted this encounter? (DM, HTN, Smoking, COPD, CAD, Cancer, CVA, ARF, Chemo, Hep., AIDS, mental health diagnosis, sleep apnea, morbid obesity)? @ -none Was patient admitted / discharged? Hospital course, mention meds given and route, prescriptions, significant lab abnormalities, going to OR and other pertinent info. @ - Undiagnosed new problem with uncertain prognosis? @ -no Drug Therapy requiring intensive monitoring for toxicity (Heparin, Nitro, Insulin, Cardizem)? @ -no Were any procedures done? @ -no Diagnosis/symptom? @ - Acute, or Chronic, or Acute on Chronic? @ -Acute Uncomplicated (without systemic symptoms) or Complicated (systemic symptoms)? @ -Complicated Side effects of treatment? @ -no Exacerbation, Progression, or Severe Exacerbation? @ -exacerbation Poses a threat to life or bodily function? How? (Chest pain, [place], [place], pneumonia, PE, COPD, DKA, ARF, appy, cholecystitis, CVA, Diverticulitis, Homicidal, Suicidal, threat to staff... and all critical care pts) @ -yes Reevaluation #5: Differential Chest Pain: Stable Angina, Unstable Angina, STEMI, NSTEMI Aortic Dissection, Pneumothorax, Musculoskeletal, Esophageal Spasm GERD, Cholecystitis, Pancreatitis, Zoster, this is not meant to be an all-inclusive list. - Consultations Consultation #1: Spoke with [facility] who agrees to admit this patient Chest Pain MDM - MDM 83 female to ER with chest pain typical chest pain improved with nitro patient will be admitted for chest pain observation Disposition Clinical Impression: Chest pain Disposition: ADMITTED IP TO THIS HOSP Condition: Fair Is patient prescribed a controlled substance at d/c from ED?: No Referrals: Nonstaff,Physician [REFERRING] - 1-2 days Time of Disposition: 18:30
[2024-10-10 16:10] LABS: Basophils # (A) 0.03 10*3/uL (0.00-0.10); Basophils % (A) 0.6 %; Eosinophils # (A) 0.20 10*3/uL (0.04-0.35); Eosinophils % (A) 3.8 %; HCT 35.5 % (37.2-46.3); HGB 12.0 g/dL (12.0-15.0); Lymphocytes # (A) 1.51 10*3/uL (0.90-5.00); Lymphocytes % (A) 29.0 %; MCH 31.8 pg (27.0-32.0); MCHC 33.8 g/dL (32.0-37.0); MCV 94.2 fL (80.0-97.0); Monocytes # (A) 0.91 10*3/uL (0.20-1.00); Monocytes % (A) 17.5 %; Neutrophils # (A) 2.53 10*3/uL (1.80-7.70); Neutrophils % (A) 48.5 %; Platelet Count 156 10*3/uL (140-440); RBC 3.77 10*6/uL (4.10-5.20); RDW 14.9 % (11.5-14.5); WBC 5.21 10*3/uL (4.50-10.00)
[2024-10-10 16:25] LABS: INR 1.0 (<1.2); Partial Thromboplastin Time 24.0 sec (22.0-30.0); Prothrombin Time 11.4 sec (10.0-12.5)
[2024-10-10 16:26] LABS: Anion Gap 8 mmol/L; Blood Urea Nitrogen 9 mg/dL (7-17); Carbon Dioxide 22 mmol/L (22-30); Chloride 105 mmol/L (98-107); Glucose 83 mg/dL (74-99); Potassium 3.7 mmol/L (3.5-5.1); Sodium 135 mmol/L (137-145)
[2024-10-10 16:27] LABS: ALT 12 U/L (4-34); AST 21 U/L (14-36); African American GFR (CKD) >90 (>60 ml/min/1.73 sqM); Albumin 3.6 g/dL (3.5-5.0); Alkaline Phosphatase 44 U/L (38-126); Calcium 8.7 mg/dL (8.4-10.2); Lipase 39 U/L (23-300); Magnesium 1.7 mg/dL (1.6-2.3); Non-African American GFR(CKD) 85 (>60 ml/min/1.73 sqM); Total Protein 5.6 g/dL (6.3-8.2)
[2024-10-10 16:35] LABS: NT-Pro-B-Type Natriuretic Pept 423 pg/mL
--- NOTE | 2024-10-10 16:43 | XR ---
EXAMINATION TYPE: XR chest 2V DATE OF EXAM: 10/10/2024 4:32 PM COMPARISON: Chest radiographs from 04/08/2024 on the PET/CT 05/17/2024 TECHNIQUE: XR chest 2V Frontal and lateral views of the chest. CLINICAL INDICATION:Female, 83 years old with history of Chest Pain; FINDINGS: Patient is rotated with some evaluation. Lungs/Pleura: There is no evidence of pleural effusion, focal consolidation, or pneumothorax. Chroni c senescent parenchymal change. Pulmonary vascularity: Unremarkable. Heart/mediastinum: Cardiomediastinal silhouette is unremarkable. Musculoskeletal: No acute osseous pathology. Diffuse bone demineralization. Multilevel thoracic spine vertebral augmentation changes. IMPRESSION: No acute cardiopulmonary disease/process. [facility], , 10/10/2024 4:40 PM
[2024-10-10] MEDS ORDERED: ONDANSETRON 4 MG/2 ML VIAL IVP PRN (18:34)
[2024-10-10] MEDS ORDERED: NALOXONE 0.4 MG/ML 1 ML VIAL IV PRN (18:34)
[2024-10-10] MEDS: SODIUM CHLORIDE 0.9% 1,000 ML IV SCH (19:02)
[2024-10-10] MEDS: MORPHINE SULFATE 4 MG/ML SYRINGE IV PRN (20:55)
[2024-10-10] MEDS: ACYCLOVIR 200 MG CAP PO SCH (20:56)
[2024-10-10] MEDS: APIXABAN 5 MG TAB PO SCH (20:56)
[2024-10-11] MEDS: GABAPENTIN 100 MG CAP PO SCH (00:49)
[2024-10-11 00:55] LABS: ALT 11 U/L (4-34); AST 20 U/L (14-36); African American GFR (CKD) >90 (>60 ml/min/1.73 sqM); Albumin 3.3 g/dL (3.5-5.0); Albumin/Globulin Ratio 1.6; Alkaline Phosphatase 40 U/L (38-126); Anion Gap 4 mmol/L; Blood Urea Nitrogen 9 mg/dL (7-17); Calcium 8.4 mg/dL (8.4-10.2); Carbon Dioxide 28 mmol/L (22-30); Chloride 104 mmol/L (98-107); Globulin 2.1 g/dL; Glucose 95 mg/dL (74-99); Magnesium 1.8 mg/dL (1.6-2.3); Non-African American GFR(CKD) 85 (>60 ml/min/1.73 sqM); Potassium 3.6 mmol/L (3.5-5.1); Sodium 136 mmol/L (137-145); Total Protein 5.4 g/dL (6.3-8.2)
[2024-10-11] MEDS ORDERED: AMINOPHYLLINE 500 MG/20 ML VIAL IV PRN (07:54)
[2024-10-11] MEDS ORDERED: CAFFEINE CITRATE 60 MG/3 ML VIAL IV PRN (07:54)
[2024-10-11] MEDS ORDERED: REGADENOSON 0.4 MG/5 ML SYRINGE IV PRN (07:54)
[2024-10-11 08:05] LABS: Basophils # (A) 0.02 X 10*3/uL (0.00-0.10); Basophils % (A) 0.5 %; Eosinophils # (A) 0.22 X 10*3/uL (0.04-0.35); Eosinophils % (A) 5.8 %; HCT 37.0 % (37.2-46.3); HGB 11.6 g/dL (12.0-15.0); Immature Grans, Automated 0.30 %; Lymphocytes # (A) 1.35 X 10*3/uL (0.90-5.00); Lymphocytes % (A) 35.7 %; MCH 30.6 pg (27.0-32.0); MCHC 31.4 g/dL (32.0-37.0); MCV 97.6 FL (80.0-97.0); Monocytes # (A) 0.84 X 10*3/uL (0.20-1.00); Monocytes % (A) 22.2 %; NRBC Per 100 WBC 0 X 10*3/uL (0.00-0.01); Neutrophils # (A) 1.34 X 10*3/uL (1.80-7.70); Neutrophils % (A) 35.5 %; Platelet Count 144 X 10*3/uL (140-440); RBC 3.79 X 10*6/uL (4.10-5.20); RDW 15.5 % (11.5-14.5); WBC 3.78 X 10*3/uL (4.50-10.00)
--- NOTE | 2024-10-11 11:08 | CA ---
Lexiscan Nuclear Stress Test Report Name: Deanna Nunez Exam Date: 10/11/2024 09:30 Exam Location: [place] Stress Ht (in): 64 Wt (lb): 135 BSA: 1.66 Ordering Phys: Cristal Kate Referring Phys: HENRIETTA Technologist: Demetri Richardson Age: 83 Gender: F : 1940 Procedure CPT: Indications: Reflex order-Stress test ICD-10 Codes: Patient History: CHEST PAIN, DIFFICULTY IN BREATHING, PALPITATIONS, NUMBNESS IN FACE/NECK, HTN, COPD, PRIOR SMOKER 1 PPD X 60+ YEARS Medications: SEE CHART,,, Meds past 24 hrs: Pretest Chest Pain: STRESS TEST Lexiscan Protocol Exercise Duration (min:sec): 01:[address] Depressions (mm): Angina Score: Garcia Score: Resting HR (bpm): 58 Peak HR (bpm): 74 Resting BP (mmHg): 177 / 86 Peak BP (mmHg): 177 / 86 MPHR: 135 Target HR: 115 % MPHR: 55 METS: 1.0 Total Dose: Peak Dose: Atropine: Double Product: 93041 BP Response: Stress Termination: INFUSION COMPLETE Stress Symptoms: CHEST PRESSURE Stress Summary: ECG ANALYSIS Resting ECG: Sinus rhythm. Right bundle branch block. No arrhythmias. Stress ECG: No ECG changes from baseline with Lexiscan infusion. CONCLUSIONS No ECG evidence of ischemia with Lexiscan infusion. Nuclear test results to follow. Dr. Norma Alex MD (Electronically Signed) Final Date: 11 October 2024 11:08
--- NOTE | 2024-10-11 11:24 | P.CRDCN ---
History of Present Illness History of present illness: HISTORY OF PRESENT ILLNESS: This is a 83-year-old female with a past medical history significant for hypertension and multiple myeloma. 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 We have been asked to see the patient in consultation for chest pain. Patient examined at the bedside. Patient states that she was doing some things around the house when she began to feel short of breath. She states that she had pain underneath her shoulder blades and numbness into her left hand. She denied having any significant chest discomfort. She states that nothing really made the pain better or worse. She did receive morphine upon coming to the hospital which did help. She states that she has not had pain like this before. She states the pain was worse with movement. She does report a history of multiple myeloma and sees Dr. Thibodeaux on an outpatient basis. She is anticoagulated with Eliquis however patient is unsure why she takes this. She denies any known history of A-fib or DVT/PE. DIAGNOSTICS: - EKG reveals sinus mechanism with incomplete right bundle branch block. No signs of acute ischemia. - Chest xray negative for acute process. - Laboratory data: Troponin negative x 3 - Current home cardiac medications include Eliquis 5 mg twice a day, losartan 50 mg twice daily, carvedilol 6.25 mg twice a day. - Most recent echocardiogram obtained in March 2024 revealed ejection fraction 60 to 65% with mild mitral stenosis - Cardiac catheterization history: Patient denies REVIEW OF SYSTEMS: At the time of my exam: CONSTITUTIONAL: Denies fever or chills. HEENT: Denies blurred vision, vision changes, or eye pain. Denies hemoptysis CARDIOVASCULAR: Denies chest pain. Denies orthopnea. Denies PND. Denies palpitations RESPIRATORY: Denies shortness of breath. GASTROINTESTINAL: Denies abdominal pain. Denies nausea or vomiting. HEMATOLOGIC: Denies bleeding disorders. GENITOURINARY: Denies any blood in urine. SKIN: Denies pruitis. Denies rash. PHYSICAL EXAM: VITAL SIGNS: Reviewed. GENERAL: Well-developed in no acute distress. HEENT: Head is normocephalic. Pupils are equal, round. Sclerae anicteric. Mucous membranes of the mouth are moist. Neck supple. No JVD or thyromegaly LUNGS: Respirations even and unlabored. Lungs essentially clear to auscultation bilaterally. HEART: Regular rate and rhythm. S1 and S2 heard. Systolic murmur noted. ABDOMEN: Soft. Nondistended. Nontender. EXTREMITIES: Normal range of motion. No clubbing or cyanosis. Peripheral pulse s intact. No lower extremity edema NEUROLOGIC: Awake and alert. Oriented x 3. ASSESSMENT: Chest pain, troponin negative x 3 History of hypertension History of multiple myeloma Long-term anticoagulation for unknown reason, patient denies atrial fibrillation or DVT/PE PLAN: An acute coronary event has been ruled out No need to repeat echocardiogram as this was performed in March 2024 Resume home cardiac medications Patient to undergo Lexiscan stress test today If negative, patient may be discharged from a cardiac standpoint Nurse practitioner note has been reviewed by physician. Signing provider agrees with the documented findings, assessment, and plan of care documented by DISCHARGE RN as a scribe. Past Medical History Past Medical History: Cancer, GERD/Reflux Additional Past Medical History / Comment(s): diverticulitis, left breast cancer, bone cancer History of Any Multi-Drug Resistant Organisms: None Reported Past Surgical History: Appendectomy, Breast Surgery, Orthopedic Surgery, Tonsillectomy Additional Past Surgical History / Comment(s): left breast biopsy, left lymph node removal left shoulder rotator cuff Past Anesthesia/Blood Transfusion Reactions: No Reported Reaction Past Psychological History: Anxiety Smoking Status: Former smoker Past Alcohol Use History: Rare Additional Past Alcohol Use History / Comment(s): started smoking age 15 has smoked on and off, smokes 3/4 PPD Past Drug Use History: None Reported - Past Family History Sister(s) Family Medical History: Cancer Brother(s) Family Medical History: Cancer Medications and Allergies Home Medications Medication Instructions Recorded Confirmed Type Losartan [Cozaar] 50 mg PO BID@0900,1700 03/19/24 10/10/24 History PARoxetine [Paxil] 20 mg PO DAILY@0900 03/19/24 10/10/24 History Pantoprazole [Protonix] 40 mg PO DAILY@0900 04/07/24 10/10/24 History Sucralfate [Carafate] 1 gm PO BID@0900,1700 04/07/24 10/10/24 History Acyclovir [Zovirax] 400 mg PO BID@0900,2100 10/10/24 10/10/24 History Apixaban [Eliquis] 5 mg PO BID@0900,2100 10/10/24 10/10/24 History Gabapentin [Neurontin] 200 mg PO TID@0100,0900,1700 10/10/24 10/10/24 History Lenalidomide [Revlimid] 15 mg PO DIRECTED@89910/10/24 10/10/24 History carvediloL [Coreg] 6.25 mg PO BID@0900,2100 10/10/24 10/10/24 History dexAMETHasone [Decadron] 20 mg PO MO@89910/10/24 10/10/24 History Allergies Allergy/AdvReac Type Severity Reaction Status Date / Time shellfish derived [Shrimp] AdvReac Nausea & Verified 10/10/24 18:16 Vomiting Physical Exam Vitals: Vital Signs Temp Pulse Pulse Resp BP BP Pulse Ox 10/11/24 02:24 97.8 F 63 16 136/80 10/10/24 21:00 16 10/10/24 20:25 98.2 F 64 16 173/81 97 10/10/24 19:29 66 18 165/88 99 10/10/24 18:30 64 12 188/99 97 10/10/24 15:51 99.1 F 65 17 190/81 97 Intake and Output 10/10/24 10/11/24 10/11/24 22:59 06:59 14:59 Other: Voiding Method Toilet # Voids 3 Weight 61.235 kg Results 10/11/24 00:07 10/11/24 00:07 Cardiac Enzymes 10/10/24 10/10/24 10/10/24 Range/Units 16:03 16:03 20:37 AST 21 (14-36) U/L Troponin I <0.012 <0.012 (0.000-0.034) ng/mL 10/10/24 10/11/24 Range/Units 23:49 00:07 AST 20 (14-36) U/L Troponin I <0.012 (0.000-0.034) ng/mL Coagulation 10/10/24 Range/Units 16:03 PT 11.4 (10.0-12.5) sec APTT 24.0 (22.0-30.0) sec CBC 10/10/24 Range/Units 16:03 WBC 5.21 (4.50-10.00) 10*3/uL RBC 3.77 L (4.10-5.20) 10*6/uL Hgb 12.0 (12.0-15.0) g/dL Hct 35.5 L (37.2-46.3) % Plt Count 156 (140-440) 10*3/uL Comprehensive Metabolic Panel 10/10/24 10/11/24 Range/Units 16:03 00:07 Sodium 135 L 136 L (137-145) mmol/L Potassium 3.7 3.6 (3.5-5.1) mmol/L Chloride 105 104 (98-107) mmol/L Carbon Dioxide 22 28 (22-30) mmol/L BUN 9 9 (7-17) mg/dL Creatinine 0.57 0.58 (0.52-1.04) mg/dL Glucose 83 95 (74-99) mg/dL Calcium 8.7 8.4 (8.4-10.2) mg/dL AST 21 20 (14-36) U/L ALT 12 11 (4-34) U/L Alkaline Phosphatase 44 40 (38-126) U/L Total Protein 5.6 L 5.4 L (6.3-8.2) g/dL Albumin 3.6 3.3 L (3.5-5.0) g/dL Current Medications Generic Name Dose Route Start Last Admin Trade Name Freq PRN Reason Stop Dose Admin Acyclovir 400 mg 10/10/24 21:00 10/10/24 20:56 Acyclovir 200 Mg Cap PO 400 mg BID@0900,2100 DERRICK Administration Apixaban 5 mg 10/10/24 21:00 10/10/24 20:56 Apixaban 5 Mg Tab PO 5 mg BID@0900,2100 [facility] Administration Protocol Carvedilol 6.25 mg 10/10/24 21:00 10/11/24 06:36 Carvedilol 6.25 Mg Tab PO 6.25 mg BID-W/MEALS DERRICK Administration Dexamethasone 20 mg 10/15/24 09:00 Dexamethasone 4 Mg Tab PO MO@0900 DERRICK Gabapentin 200 mg 10/11/24 01:00 10/11/24 00:49 Gabapentin 100 Mg Cap PO 200 mg TID@0100,0900,1700 [facility] Administration Sodium Chloride 1,000 mls @ 75 mls/hr 10/10/24 18:45 10/10/24 19:02 Saline 0.9% IV 75 mls/hr .[id number] DERRICK Administration Losartan Potassium 50 mg 10/11/24 09:00 Losartan 50 Mg Tab PO BID@0900,1700 [facility] Morphine Sulfate 4 mg 10/10/24 18:34 10/11/24 06:37 Morphine Sulfate 4 Mg/Ml Syringe IV 4 mg Q4HR PRN Administration Severe Pain (Scale 7 to 10) Naloxone HCl 0.2 mg 10/10/24 18:34 Naloxone 0.4 Mg/Ml 1 Ml Vial IV Q2M PRN Opioid Reversal Non-Formulary Medication 15 mg 10/11/24 09:00 Lenalidomide [Revlimid] PO 0900 [facility] Ondansetron HCl 4 mg 10/10/24 18:34 Ondansetron 4 Mg/2 Ml Vial IVP Q8HR PRN Nausea And Vomiting Pantoprazole Sodium 40 mg 10/11/24 09:00 Pantoprazole 40 Mg Tablet PO DAILY@0900 [facility] Paroxetine HCl 20 mg 10/11/24 09:00 Paroxetine 20 Mg Tab PO DAILY@0900 [facility] Sucralfate 1 gm 10/11/24 09:00 Sucralfate 1 Gm Tab PO BID@0900,1700 [facility] Intake and Output 10/10/24 10/11/24 10/11/24 22:59 06:59 14:59 Other: Voiding Method Toilet # Voids 3 Weight 61.235 kg 10/10/24 16:03 10/11/24 00:07
[2024-10-11] MEDS: LOSARTAN 50 MG TAB PO SCH (11:30)
[2024-10-11] MEDS: PARoxetine 20 MG TAB PO SCH (11:30)
[2024-10-11] MEDS: SUCRALFATE 1 GM TAB PO SCH (11:30)
[2024-10-11] MEDS: PANTOPRAZOLE 40 MG TABLET PO SCH (11:30)
[2024-10-11] MEDS: NON FORMULARY DRUG (Lenalidomide [Revlimid] 15 MG Capsule) PO SCH (11:30)
--- NOTE | 2024-10-11 13:07 | NM ---
EXAMINATION TYPE: NM stress lexiscan cardiolite DATE OF EXAM: 10/11/2024 COMPARISON: NONE CLINICAL INDICATION: Female, 83 years old with history of cp; TECHNIQUE: After the intravenous administration of 9.8 mCi Tc 99m Sestamibi - Cardiolite resting SPE CT images acquired 55 minutes post injection. The patient received 0.4mg Lexiscan, 25.2 mCi Tc 99m Sestamibi - Stress images obtained [address] injection FINDINGS: Review of stress and rest SPECT images demonstrates reversible ischemia involving the inferior wall. Correlate for stress-induced ischemia. Attenuation artifact in this region as well. Gated analysis sh ows normal wall motion with an estimated left ventricular ejection fraction of 71% . IMPRESSION: Stress-induced ischemia inferior wall is difficult to exclude although there is attenuation artifact in this region. [facility], , 10/11/2024 1:05 PM
[2024-10-11] MEDS ORDERED: IPRATROPIUM-ALBUTEROL 3 ML NEB INHALATION PRN (15:50)
--- NOTE | 2024-10-11 17:03 | CT ---
EXAMINATION TYPE: CT chest wo con DATE OF EXAM: 10/11/2024 4:34 PM COMPARISON: PET/CT 05/17/2024. Thoracic spine CT 04/11/2024. CLINICAL INDICATION: Female, 83 years old with history of scapular pain; PHH, SCAPULAR PAIN TECHNIQUE: Multiple axial images were obtained through the chest. Sagittal and coronal reformats were created for review. MIP was performed on a separate workstation. Contrast used: mL of (None if empty) Oral contrast used: (None if empty) CT DLP: 380 mGycm, Automated exposure control for dose reduction was used. FINDINGS: LUNGS/ PLEURA: Centrilobular emphysematous changes are seen. There are atelectatic/scarring changes n oted in the bilateral apices and lung bases. Trace left pleural fluid is present. There are a few sca ttered pulmonary nodules noted in the left lung with the most pronounced in the seen in the upper asp ect of the left lower lobe measuring up to 4 mm. The additional lymph nodes in the left lung are sub- 5 mm. No pneumothorax. AIRWAY: Patent and unremarkable. HEART: Size within normal limits. Moderate coronary artery atherosclerosis. MEDIASTINUM: Mildly enlarged right-sided precarinal lymph node measuring up to 12 mm in short axis. T his did not demonstrate any significant FDG activity on the PET CT in reference.. VASCULATURE: No aortic aneurysm. MUSCULOSKELETAL: Redemonstrated multiple compression deformities involving thoracic spine most notabl y at T4 and T8 vertebral bodies. There is redemonstrated vertebroplasty changes in the thoracic spine . No acute fracture noted in the bilateral scapula. SOFT TISSUES/LYMPH NODES: Metallic clips noted in the area of the left breast. LOWER NECK: Heterogenous left thyroid lobe. UPPER ABDOMEN: Large hiatal hernia with partial intrathoracic stomach. There is a subcentimeter hypod ense focus in the left hepatic lobe too small to characterize which did not demonstrate significant F DG activity on PET CT in reference. IMPRESSION: 1. No acute intrathoracic process. 2. Scattered sub-5 mm pulmonary nodules in the left lung. Recommend CT chest follow-up in 3-6 months unless there is a PET/CT follow-up scheduled in that time. If that is the case attention on follow-up to these nodules on that study. 3. Centrilobular emphysema with areas of scarring and atelectasis in the lungs. Trace left pleural fl uid is present. 4. Large hiatal hernia. 5. Multiple compression deformities with vertebroplasty changes in the thoracic spine likely relating to reported history of multiple myeloma. 6. Heterogenous left thyroid lobe. If not already completed consider correlation with outpatient none mergent carotid ultrasound if clinically indicated. [facility], , 10/11/2024 5:01 PM
[2024-10-11] MEDS: methylPREDNISolone SOD SUCCI 125 MG/2 ML VIAL IV SCH (17:15)
[2024-10-11 18:07] LABS: RSV Not Detected (Not Detectd)
--- NOTE | 2024-10-11 18:39 | HP ---
HISTORY AND PHYSICAL CHIEF COMPLAINT: Chest pain. HISTORY OF PRESENT ILLNESS: This 83-year-old woman with a past medical history of hypertension was complaining of chest pain and back pain, scapular pain. The patient came to [facility] performed a stress test, which was reported as negative. There is no history of any fever, rigors, chills at this time. The stress test showed stress test induced ischemia, inferior wall is difficult to exclude with some attenuation artifact in the region. PAST MEDICAL HISTORY: History of COPD, GERD, diverticulitis. Rest of the history and chart is also reviewed. HOME MEDICATIONS: Decadron, dose and rest of medications reviewed. ALLERGIES: Shellfish. FAMILY HISTORY: History of cancer. SOCIAL HISTORY: Previous smoker. REVIEW OF SYSTEMS: A 14-point review of systems negative except as mentioned earlier. PHYSICAL EXAMINATION: VITAL SIGNS: Pulse 59, blood pressure 110/87, respirations 20. HEENT: Conjunctivae normal. NECK: No jugular venous distention. CARDIOVASCULAR: S1, S2. RESPIRATORY: Breath sounds diminished at the bases. Few scattered rhonchi and crackles. ABDOMEN: Soft. LEGS: No edema. NERVOUS SYSTEM: Nonfocal. LABORATORY DATA: Reviewed. The chest x-ray reviewed. ASSESSMENT: 1. Chest pain, myocardial infarction ruled out with equivocal stress test with possibly attenuation abnormality. 2. Possible pleurisy. 3. Chronic obstructive pulmonary disease. 4. Remote history of nicotine dependence. 5. History of gastrointestinal bleed. 6. History of left breast cancer. 7. History of bone cancer. RECOMMENDATIONS: This is an 83-year-old woman who presented with multiple complex medical issues. We will monitor the patient closely. I will recommend CT scan of the chest also to complete the workup. Bronchodilators. Guarded prognosis because of multiple complex medical issues. Pain management. Further recommendations to follow. See orders for details. MMODL / IJN: [id number] /
[2024-10-11] MEDS ORDERED: HYDROcodone/APAP 5-325MG 1 EACH TAB PO PRN (20:04)
[2024-10-11] MEDS ORDERED: ACETAMINOPHEN TAB 325 MG TAB PO PRN (20:05)
[2024-10-11] MEDS: IPRATROPIUM-ALBUTEROL 3 ML NEB INHALATION SCH (21:05)
[2024-10-12 07:49] VITALS: BP 186/94; RESP 17; TEMP 97.9
[2024-10-12] MEDS: ISOSORBIDE MONONITRATE ER 30 MG TAB.ER.24H PO SCH (08:25)
[2024-10-12 09:41] VITALS: PULSE 80
--- NOTE | 2024-10-12 09:46 | P.PN ---
Subjective Progress Note Date: 10/12/24 This is a 83-year-old female with a past medical history significant for hypertension and multiple myeloma. Patient does not follow with a online marketer. We have been asked to see the patient in consultation for chest pain. Patient examined at the bedside. Patient states that she was doing some things around the house when she began to feel short of breath. She states that she had pain underneath her shoulder blades and numbness into her left hand. She denied having any significant chest discomfort. She states that nothing really made the pain better or worse. She did receive morphine upon coming to the hospital which did help. She states that she has not had pain like this before. She states the pain was worse with movement. She does report a history of multiple myeloma and sees Dr. Thibodeaux on an outpatient basis. She is anticoagulated with Eliquis however patient is unsure why she takes this. She denies any known history of A-fib or DVT/PE. DIAGNOSTICS: - EKG reveals sinus mechanism with incomplete right bundle branch block. No signs of acute ischemia. - Chest xray negative for acute process. - Laboratory data: Troponin negative x 3 - Current home cardiac medications include Eliquis 5 mg twice a day, losartan 50 mg twice daily, carvedilol 6.25 mg twice a day. - Most recent echocardiogram obtained in March 2024 revealed ejection fraction 60 to 65% with mild mitral stenosis - Cardiac catheterization history: Patient denies 10/12/2024 The patient was seen and examined resting comfortably in bed. Patient had Lexiscan stress test done yesterday that showed area of possible ischemia however images were reviewed by Dr. Alex and felt to be more related to artifact. Patient has had no further chest discomfort. PHYSICAL EXAM: VITAL SIGNS: Reviewed. GENERAL: Well-developed in no acute distress. HEENT: Head is normocephalic. Pupils are equal, round. Sclerae anicteric. Mucous membranes of the mouth are moist. Neck supple. No JVD or thyromegaly LUNGS: Respirations even and unlabored. Lungs essentially clear to auscultation bilaterally. HEART: Regular rate and rhythm. S1 and S2 heard. Systolic murmur noted. ABDOMEN: Soft. Nondistended. Nontender. EXTREMITIES: Normal range of motion. No clubbing or cyanosis. Peripheral pulses intact. No lower extremity edema NEUROLOGIC: Awake and alert. Oriented x 3. ASSESSMENT: Chest pain, troponin negative x 3 History of hypertension History of multiple myeloma Long-term anticoagulation for unknown reason, patient denies atrial fibrillation or DVT/PE PLAN: From cardiology's perspective no need for further cardiac workup as an inpatient. Patient may be discharged home. She will follow-up in the office in about 2 weeks. [employer]EL[employer] note has been reviewed, I agree with a documented findings and plan of care. Patient was seen and examined. Objective - Vital Signs Vital signs: Vital Signs Temp 97.9 F 10/12/24 07:00 Pulse 80 10/12/24 09:40 Resp 17 10/12/24 07:00 BP 186/94 10/12/24 07:00 Pulse Ox 93 L 10/12/24 07:00 FiO2 Intake & Output 10/11/24 10/12/24 10/12/24 18:59 06:59 18:59 Intake Total 118 Balance 118 Intake: Oral 118 Other: Voiding Method Toilet Toilet Toilet # Voids 2 3 - Labs CBC & Chem 7: 10/11/24 00:07 10/11/24 00:07
[2024-10-12 11:04] LABS: Basophils # (A) 0.01 X 10*3/uL (0.00-0.10); Basophils % (A) 0.5 %; Eosinophils # (A) 0.01 X 10*3/uL (0.04-0.35); Eosinophils % (A) 0.5 %; HCT 37.1 % (37.2-46.3); HGB 11.8 g/dL (12.0-15.0); Immature Grans, Automated 0 %; Lymphocytes # (A) 0.53 X 10*3/uL (0.90-5.00); Lymphocytes % (A) 26.2 %; MCH 29.7 pg (27.0-32.0); MCHC 31.8 g/dL (32.0-37.0); MCV 93.5 FL (80.0-97.0); Monocytes # (A) 0.13 X 10*3/uL (0.20-1.00); Monocytes % (A) 6.4 %; NRBC Per 100 WBC 0 X 10*3/uL (0.00-0.01); Neutrophils # (A) 1.34 X 10*3/uL (1.80-7.70); Neutrophils % (A) 66.4 %; Platelet Count 179 X 10*3/uL (140-440); RBC 3.97 X 10*6/uL (4.10-5.20); RDW 15.0 % (11.5-14.5); WBC 2.02 X 10*3/uL (4.50-10.00)
[2024-10-12 11:18] LABS: ALT 12 U/L (8-44); AST 20 U/L (13-35); Albumin 3.8 g/dL (3.8-4.9); Albumin/Globulin Ratio 1.81 Ratio (1.60-3.17); Alkaline Phosphatase 49 U/L (41-126); Anion Gap 11.60 mmol/L (4.00-12.00); BUN/Creat Ratio 17.80 Ratio (12.00-20.00); Blood Urea Nitrogen 8.9 mg/dL (9.0-27.0); Calcium 8.5 mg/dL (8.7-10.3); Carbon Dioxide 21.4 mmol/L (21.6-31.8); Chloride 104 mmol/L (96-109); Globulin 2.1 g/dL (1.6-3.3); Glucose 143 mg/dL (70-110); Potassium 3.8 mmol/L (3.5-5.5); Sodium 137 mmol/L (135-145); Total Protein 5.9 g/dL (6.2-8.2)
--- NOTE | 2024-10-14 14:48 | P.DS ---
Providers Date of admission: 10/10/24 18:34 Expected date of discharge: 10/12/24 Attending physician: Zeke Rodarte Consults: 10/10/24 18:34 Consult Physician Routine Consulting Provider: Norma Alex Consult Reason/Comments: cp Do you want consulting provider notified?: Yes Primary care physician: Rob Villanueva MD Hospital Course: Final diagnosis Chest pain, myocardial infarction ruled out with stress testing during hospitalization and cleared by cardiology, possible attenuation abnormality Likely pleurisy COPD, acute exacerbation Remote history of nicotine dependence History of GI bleed History of left breast cancer History of multiple myeloma currently on oral chemo medication History of bone cancer follows with Dr. Thibodeaux outpatient GI prophylaxis DVT prophylaxis Full code Discharge disposition Patient is being discharged in a stable condition with guarded prognosis to home. Patient will follow-up with Dr. Villanueva in about a week and we keep yeah let it just go to the back very well in the outpatient setting upon discharge. Patient is to continue with current medications and would recommend outpatient follow-up with cardiology as well as pulmonary and I am gladly as scheduled. Total time taken is greater than 35 minutes. Hospital course This is a 84-year-old female who was recently admitted with chest pain with left shoulder and back pain closely monitored with cardiology following. Patient also having some wheezing showing improvements on prednisone along with breathing treatments.. Patient underwent stress testing which was negative and cleared by cardiology. Recommend a prednisone taper on discharge and also recommend outpatient follow-up with pulmonary as well as her oncologist Dr. Thibodeaux in the outpatient setting. Please refer to consultation notes for further HPI. Currently no reports of chest pain, shortness of breath, or palpitations. Patient is afebrile. No reports of nausea or vomiting and patient is tolerating diet. Patient will be discharged home today. Patient did have a CT of the chest showing scattered sub-5 mm pulmonary nodules in the left lung recommending CT chest in 3 to 6 months unless there is a recent PET scan scheduled in that time with central lobar emphysema with areas of scarring and atelectasis in the lungs with a trace pleural effusion noted with large hiatal hernia and multiple compression deformities with vertebroplasty changes in the thoracic spine likely related to reported history of multiple myeloma. The thyroid on the left is a heterogenous lobe and if not already completed consider correlation with outpatient nonemergent carotid ultrasound if clinically indicated. guarded prognosis and high risk for readmission given age and significant comorbidities. Physical exam: Gen: This is a 84-year-old female who is awake, well-developed, elderly appearing, thin built HEENT: Head is atraumatic, normocephalic. Pupils equal, round. Sclerae is anicteric. NECK: Supple. No JVD. No lymphadenopathy. No thyromegaly. LUNGS: Diminished breath sounds bilaterally with improved aeration with faint occasional expiratory wheezes, scattered rhonchi. No intercostal retractions. HEART: S1, S2 are muffled ABDOMEN: Soft. Bowel sounds are present. No masses. No tenderness. EXTREMITIES: No pedal edema. No calf tenderness. NEUROLOGICAL: Patient is awake, alert and oriented x3. Cranial nerves 2 through 12 are grossly intact. Please refer to medication reconciliation sheet for a list of medications. The impression and plan of care has been dictated by Marta Palumbo, Nurse Practitioner as directed. Dr. Samantha MD I have performed a history and examination and MDM of this patient, discussed the same with the dictator, and agree with the dictator's assessment and plan as written ,documented as a scribe. Based on total visit time, I have performed more than 50% of the visit. Patient Condition at Discharge: Fair Plan - Discharge Summary Discharge Rx Participant: No New Discharge Prescriptions: No Action PARoxetine [Paxil] 20 mg PO DAILY@0900 Gabapentin [Neurontin] 200 mg PO TID@0100,0900,1700 Lenalidomide [Revlimid] 15 mg PO DIRECTED@0900 Apixaban [Eliquis] 5 mg PO BID@0900,2100 Acyclovir [Zovirax] 400 mg PO BID@0900,2100 Losartan [Cozaar] 50 mg PO BID@0900,1700 Sucralfate [Carafate] 1 gm PO BID@0900,1700 Pantoprazole [Protonix] 40 mg PO DAILY@0900 carvediloL [Coreg] 6.25 mg PO BID@0900,2100 dexAMETHasone [Decadron] 20 mg PO MO@0900 Discharge Medication List Losartan [Cozaar] 50 mg PO BID@0900,1700 03/19/24 [History] PARoxetine [Paxil] 20 mg PO DAILY@0900 03/19/24 [History] Pantoprazole [Protonix] 40 mg PO DAILY@89904/07/24 [History] Sucralfate [Carafate] 1 gm PO BID@899,169904/07/24 [History] Acyclovir [Zovirax] 400 mg PO BID@899,209910/10/24 [History] Apixaban [Eliquis] 5 mg PO BID@899,209910/10/24 [History] Gabapentin [Neurontin] 200 mg PO TID@99,899,169910/10/24 [History] Lenalidomide [Revlimid] 15 mg PO DIRECTED@89910/10/24 [History] carvediloL [Coreg] 6.25 mg PO BID@899,209910/10/24 [History] dexAMETHasone [Decadron] 20 mg PO MO@89910/10/24 [History] Follow up Appointment(s)/Referral(s): Norma Alex MD [STAFF PHYSICIAN] - 2 Weeks Nonstakelechi,Physician [REFERRING] - 1-2 days Discharge Disposition: HOME SELF-CARE
== END 2024-10-12 12:30 | disposition home or self-care (01) ==
LOC: EC 15:49 → 6NMEDSUR 18:34
PROVIDERS: ADMIT Hospitalist; ATTEND Hospitalist
DX: R07.2 Precordial pain (principal); C90.00 Multiple myeloma not having achieved remission; J44.1 Chronic obstructive pulmonary disease with (acute) exacerbation; J43.2 Centrilobular emphysema; I45.10 Unspecified right bundle-branch block; I05.0 Rheumatic mitral stenosis; I10 Essential (primary) hypertension; J98.11 Atelectasis; K44.9 Diaphragmatic hernia without obstruction or gangrene; R20.0 Anesthesia of skin; M25.512 Pain in left shoulder; M43.9 Deforming dorsopathy, unspecified; Z79.01 Long term (current) use of anticoagulants; Z79.52 Long term (current) use of systemic steroids; Z79.899 Other long term (current) drug therapy; Z91.013 Allergy to seafood; Z87.891 Personal history of nicotine dependence; Z87.19 Personal history of other diseases of the digestive system; Z85.3 Personal history of malignant neoplasm of breast; Z85.830 Personal history of malignant neoplasm of bone
CPT/HCPCS: 96376 ×2; 96361; 96374; 96375; 99285; 36415; 94640 ×2; 93005; 93017; 85379; 83880; 80053 ×3; 85652; 83690; 83735 ×2; 84100; 84484; 85025 ×3; 85610; 85730; 86140; 87636; 71046; 71250; 78452; G0378 ×3; A9500; J2270 ×2; J2785; J2919 ×2